=== PATIENT | female | born 1960 | race Two or more races ===

== ENCOUNTER 2020-09-02 12:04 | Outpatient (REF) | payer MEDICAID, SELFPAY ==
--- NOTE | ~2020-09-02 | MM_ITS ---
EXAMINATION: MM DIAGNOSTIC DIGITAL BREAST TOMOSYNTHESIS, RIGHT US DIAGNOSTIC ULTRASOUND BREAST, RIGHT CLINICAL INFORMATION: Right mastodynia lower inner breast. Palpable fullness on clinical exam. The lifetime risk of breast cancer based on the Tyrer-Cuzick Model is 4%. COMPARISON: Mammography: 04/02/2020, 03/30/2019, 03/15/2018 TECHNIQUE: Digital breast tomosynthesis is performed in both the craniocaudal and mediolateral oblique views along with computer-aided detection (CAD). Synthesized 2D images are generated from the tomosynthesis. Ultrasound right breast is targeted to the lower inner quadrant. Grayscale imaging and color Doppler are performed without and with harmonics. FINDINGS: There are scattered areas of fibroglandular density (ACR BI-RADS breast composition Category b). Parenchymal pattern is similar to prior exams. There is no developing density or interval mass or architectural abnormality. No skin thickening or coarsening of the Jere's ligaments. No duct ectasia. Ultrasound right breast demonstrates no cystic or solid mass, architectural abnormality, or focal duct ectasia. There is no skin thickening or edema tracking in the soft tissue planes. Preliminary results are discussed with the patient at time of visit. MM/MM tomosynthesis diagnostic RT IMPRESSION: 1. No mammographic evidence of malignancy or inflammatory changes. 2. Unremarkable right breast ultrasound. ASSESSMENT: BI-RADS 1: Negative RECOMMENDATION: 1. Patient should be managed based on the clinical impression. If there is still concern for clinically palpable abnormality, further evaluation may be considered with surgical consult. Decision to proceed with biopsy should be based on clinical grounds and degree of clinical concern. 2. Otherwise, routine annual screening mammography. This patient's information was entered into a reminder system with a target due date for their next mammogram.
== END 2020-09-02 12:05 | disposition home or self-care (01) ==
LOC: HO.MAMMO 12:04
PROVIDERS: Visit Provider Emergency Medicine
DX: N63.14 Unspecified lump in the right breast, lower inner quadrant (principal); N64.4 Mastodynia
CPT/HCPCS: 76642; 77061; 77065

== ENCOUNTER → 2020-10-08 13:01 | Outpatient (BNVA) | payer MEDICAID, SELFPAY | PROVIDERS: PCP Family Medicine; Visit Provider Nurse Practitioner Family | DX: M25.552 Pain in left hip (principal); M25.512 Pain in left shoulder; M25.562 Pain in left knee | CPT/HCPCS: 99202 ==

== ENCOUNTER 2020-10-10 14:35 | Outpatient (REF) | payer MEDICAID, SELFPAY ==
--- NOTE | ~2020-10-10 | XR_ITS ---
EXAMINATION: XR HIP, LEFT CLINICAL INFORMATION: Pain in left hip COMPARISON: Radiographs left hip 04/30/2012 TECHNIQUE: Two views of the left hip. FINDINGS: There is no fracture, dislocation, or destructive process. Bony mineralization is normal. No periarticular demineralization. No focal joint narrowing or erosive change or visible chondrocalcinosis. There is nonspecific corticated ossicle 0.8 x 1.1 cm triangular shape between the proximal left femoral neck and the inferior acetabulum of uncertain significance, possibly related to prior remote injury. Visualized left SI joint and the pubis are unremarkable. XR/XR hip LT min 2V IMPRESSION: 1. No hip joint narrowing or erosive change. 2. Corticated ossicle 8 x 11 mm between proximal femoral neck and inferior acetabulum of uncertain significance, possibly related to prior remote injury.
== END 2020-10-10 14:36 | disposition home or self-care (01) ==
LOC: HO.XRAY 14:35
PROVIDERS: PCP Family Medicine; Visit Provider Nurse Practitioner Family
DX: M25.552 Pain in left hip (principal)
CPT/HCPCS: 73502

== ENCOUNTER → 2020-10-25 08:51 | Outpatient (BNVA) | payer MEDICAID, SELFPAY | PROVIDERS: PCP Family Medicine; Visit Provider Nurse Practitioner Family ==

== ENCOUNTER 2020-11-12 08:04 | Outpatient (REF) | payer MEDICAID, SELFPAY ==
--- NOTE | ~2020-11-12 | CT_ITS ---
EXAMINATION: CT CHEST WITHOUT CONTRAST CLINICAL INFORMATION: Pulmonary nodule follow-up COMPARISON: Chest CT October 12, 2019 TECHNIQUE: Multidetector volumetric CT imaging of the chest was done. Axial MIP volume rendering provided. Sagittal and coronal reformatted images were obtained. This CT examination was performed using dose optimization techniques as appropriate, variously including the following: *Automated exposure control *Adjustment of mA and/or kV according to patient size (this includes techniques or standardized protocols for targeted exams where dose is matched to indication/reason for exam; i.e. extremities or head) *Use of iterative reconstruction technique DLP: 174 mGy-cm FINDINGS: The heart is normal in size. There is no pericardial effusion. A few normal-sized mediastinal lymph nodes are stable. Nonaneurysmal thoracic aorta. No axillary lymphadenopathy. Central airways are patent. Lungs are well aerated. There is no lobar consolidation. No pleural effusion or pneumothorax. Stable 8 mm right upper lobe pulmonary nodule. A few 1 to 2 mm pulmonary nodules within the left lower lobe are also stable. Visualized portion of the upper abdomen again demonstrate severely decreased hepatic echotexture. Moderate diffuse degenerative changes of the spine. CT/CT chest wo con IMPRESSION: Stable subcentimeter pulmonary nodules. No new suspicious pulmonary nodules visualized.
== END 2020-11-12 08:05 | disposition home or self-care (01) ==
LOC: HO.CT 08:04
PROVIDERS: PCP Family Medicine; Visit Provider Family Medicine
DX: R91.1 Solitary pulmonary nodule (principal)
CPT/HCPCS: 71250

== ENCOUNTER 2020-12-27 23:42 | Emergency (ER) | payer MEDICAID, SELFPAY ==
--- NOTE | ~2020-12-27 | CT_ITS ---
EXAMINATION: CONTRAST-ENHANCED CT OF THE CHEST; CONTRAST-ENHANCED CT OF THE ABDOMEN AND PELVIS INDICATION: Trauma COMPARISON: 11/12/2020 TECHNIQUE: 85 mL Omnipaque 350 IV contrast was utilized. Multidetector helical imaging was performed through the chest, abdomen, and pelvis. Coronal and sagittal reformatted images were created at the technologist workstation. DLP: 91 mGy-cm DOSE LOWERING TECHNIQUES: This CT examination was performed using dose optimization techniques as appropriate, variously including the following: - Automated exposure control - Adjustment of mA and/or kV according to patient size (this includes techniques or standardized protocols for targeted exams were dose is matched to indication/reason for exam; i.e. extremities or head) - Use of iterative reconstruction technique FINDINGS: Chest: There is limited detailed evaluation of the lung parenchyma due to respiratory motion artifact. Subsegmental atelectasis is noted towards the lung bases, without additional consolidation. A peripheral right upper lobe nodule measuring up to 7 mm without significant change from prior. No pneumothorax or pleural effusion. Subcentimeter left thyroid lobe nodule noted. There are subcentimeter mediastinal lymph nodes within the range of normal variation. Cardiac size is within normal limits; no pericardial effusion. There are scattered calcifications along the aorta. No axillary lymphadenopathy is present. Abdomen/Pelvis: The liver demonstrates hypoattenuation suspicious for steatosis. No intrahepatic biliary ductal dilatation. The gallbladder is unremarkable. The spleen, pancreas, and adrenal glands are within normal limits. Bilateral nephrograms are symmetric. No hydronephrosis. No obstructing renal or ureteral calculi are present. Subcentimeter hypodensity in the lower left kidney subjectively has the appearance of fat, suspicious for a small angiomyolipoma. The urinary bladder is distended and otherwise unremarkable. The prostate and seminal vesicles are unremarkable. Colonic diverticulosis is noted. The small and large bowel are otherwise unremarkable without evidence of obstruction or pericolonic inflammatory change. The appendix is unremarkable. No free fluid or free air is identified. Scattered atherosclerotic calcifications are present. No retroperitoneal or pelvic lymphadenopathy is seen. Degenerative changes are noted in the spine. CT/CT abdomen pelvis w con IMPRESSION: 1. No acute findings identified in the chest/abdomen/pelvis. 2. Redemonstrated peripheral subcentimeter right upper lobe lung nodule. 3. Hepatic steatosis. 4. Colonic diverticulosis.
[2020-12-28 00:56] VITALS: BP 128/65; PULSE 86; RESP 16; TEMP 36.7; O2SAT 97; BMI 49.1
--- NOTE | 2020-12-28 02:18 | ED_ITS ---
HPI - Fall General Chief Complaint: Fall Stated Complaint: abdominal pain Time Seen by Provider: 12/28/20 02:15 History of Present Illness HPI Narrative: Patient is a 60-year-old female status post accidental fall. Hit the left lower rib left upper abdomen area. There is no loss of consciousness. Complaining of excruciating pain. Patient has a history of fibromyalgia. Has extreme pain that is worse with movement. Patient denies any nausea vomiting. Feels generalized malaise. Patient from home. No allergies to the pain medications. ndition Related Data Home Medications Medication Instructions Recorded Confirmed acetaminophen 325 mg capsule 650 mg PO Q6H PRN 10/08/20 10/08/20 Previous Rx's Medication Instructions Recorded ibuprofen 800 mg tablet 800 mg PO BID PRN #60 tab 10/15/20 Allergies Allergy/AdvReac Type Severity Reaction Status Date / Time No Known Allergies Allergy Verified 10/25/20 08:52 [No Known Allergies*] Review of Systems Review of Systems: Constitutional: No Weight loss, No Fever, No Chills, No Night Sweats, No Fatigue, No Malaise ENT/Mouth: No Hearing loss, No Ear Pain, No Nasal Congestion, No Sinus Pain, No Hoarseness, No sore throat, No Rhinorrhea, No Swallowing Difficulty Eyes: No Eye Pain, No Swelling, No Redness, No Foreign Body, No Discharge, No Vision Changes Cardiovascular: No Chest Pain, No SOB, No Dyspnea on Exertion, No Orthopnea, No Edema, No Palpitations Respiratory: No Cough, No Sputum, No Wheezing, No Smoke Exposure, No Dyspnea Gastrointestinal: No Nausea, No Vomiting, No Diarrhea, No Constipation, No abdominal Pain, No Hematochezia, No Melena Genitourinary: no irregular bleeding, No Dysuria, No Urinary Frequency, No Hematuria, No Urinary Incontinence, No Urgency, No Flank Pain, No Urinary Flow Changes, No Hesitancy Musculoskeletal: No joint pain, No Myalgias, No Joint Swelling Skin: No Skin Lesions, No rash Neuro: No Weakness, No Numbness, No Paresthesias, No Loss of Consciousness, No Dizziness, No Headache Psych: No Anxiety/Panic, No Depression, No SI/HI/AH/VH, No Social Issues, Heme/Lymph: No Bruising, No Bleeding,No Lymphadenopathy Endocrine: No Polyuria, No Polydipsia, No Temperature Intolerance [facility] Past Medical History Attestation statement: The following information was validated with the patient. Medical History Diabetes Fibromyalgia HTN (hypertension) Hyperlipemia Osteoporosis Social History Social History Advance Directives: No Patient : No Physical Exam Vital Signs: Vital Signs: Last Vital Signs Temp 98.0 F 12/28/20 00:56 Pulse 86 12/28/20 00:56 Resp 16 12/28/20 03:59 BP 128/65 12/28/20 00:56 Pulse Ox 97 12/28/20 00:56 Body Mass Index 49.1 Appearance: Alert. Oriented X3. No acute distress. Eyes: Pupils equal, round and reactive to light. ENT: Pharynx normal. Neck: Normal inspection. Neck supple. No lymph nodes noted. No crepitus CVS: Normal heart rate and rhythm. Pulses normal. Normal S1 and S2 Respiratory: No respiratory distress. Breath sounds normal. No Wheezing. No rales Abdomen: No crepitus elicited. There is mild tenderness on palpation of the left upper quadrant and left lower rib area.. No rigidity. No distention. good BS x4 Skin: Skin warm and dry. Normal skin color. Normal skin turgor. Extremities: No lower extremity edema. Neurovascular intact to all extremities. No Lacerations. No Rash Neuro: Oriented X 3. No motor deficit. No sensory deficit. Moving all extermities. No slurred speech MDM - Fall MDM Narrative Medical decision making narrative: CT scan of the chest, abdomen pelvis were all negative. No evidence of obstruction no evidence of perforation no evidence of bleeding no evidence of fracture no evidence of pneumothorax. Will discharge patient home. There is a pulmonary and nodule noted. Patient was told to follow up on an outpatient basis. In stable co Lab Data Result diagrams: 12/28/20 02:36 12/28/20 02:36 Labs: Lab Results 12/28/20 12/28/20 12/28/20 Range/Units 02:36 02:36 02:36 WBC 8.5 (4.8-10.8) X10*3/uL RBC 3.90 L (4.20-5.50) X10*6/uL Hgb 11.1 L (12.0-16.0) g/dl Hct 35.2 L (37-47) % MCV 90.3 (80-98) fL MCH 28.5 (27.0-33.0) pg MCHC 31.5 (31.0-35.0) g/dl RDW 13.2 (11.0-16.0) % Plt Count 290 (160-400) X10*3/uL MPV 10.8 (9.4-12.3) fL Immature Gran % (Auto) 0.2 (0.0-0.4) % Neut % (Auto) 56.7 (45-73) % Lymph % (Auto) 32.5 (20-40) % Early % (Auto) 8.6 (2-11) % Eos % (Auto) 1.6 (0-4) % Baso % (Auto) 0.4 (0-2) % Lymph # (Auto) 2.8 (1.2-4.9) X10*3/uL Early # (Auto) 0.7 (0.1-1.2) X10*3/uL Eos # (Auto) 0.1 (0.0-0.4) X10*3/uL Baso # (Auto) 0.0 (0.0-0.2) X10*3/uL Abs Immat Gran (auto) 0.02 (0.00-0.03) X10*3/uL Absolute Neuts (auto) 4.8 (2.0-8.3) X10*3/uL Absolute Nucleated RBC 0.000 (0.0-0.012) X10*3/uL Nucleated RBC % (auto) 0.0 (0.0-0.2) /100WBC Sodium 142 (135-145) mmol/L Potassium 3.8 (3.3-5.1) mmol/L Chloride 101 (96-108) mmol/L Carbon Dioxide 30 H (22-29) mmol/L Anion Gap 15 (12-20) BUN 9 (9-16) mg/dL Creatinine 0.81 (0.5-1.4) mg/dL Estim Creat Clear Calc 94.1 Estimated GFR > 60 Random Glucose 184 H (60-115) mg/dL Calcium 8.9 (8.4-10.2) mg/dL Total Bilirubin 0.2 (0.0-1.0) mg/dL Direct Bilirubin < 0.2 (0.0-0.5) mg/dL AST 23 (5-31) U/L ALT 26 (0-31) U/L Alkaline Phosphatase 88 (39-117) U/L Total Protein 6.6 (6.5-8.0) g/dL Albumin 4.2 (3.5-5.0) g/dL Discharge Plan Discharge Clinical Impression: Chest wall pain Patient Disposition: Home, Self-Care Instructions: Chest Wall Pain (ED) Additional Instructions: A lung nodule was found on your CT scan. You must follow up on an outpatient basis. Prescriptions: No Action ibuprofen 800 mg tablet 800 mg PO BID PRN (Reason: pain) Qty: 60 RF: 0 acetaminophen [Tylenol] 325 mg capsule 650 mg PO Q6H PRNRF: 0 Print Language: [place]raltarian
[2020-12-28 02:44] LABS: MANUAL DIFF FLAG NO
[2020-12-28 02:49] LABS: Basophils Percent Auto 0.4 % (0-2); Eosinophils Absolute Auto 0.1 X10*3/uL (0.0-0.4); Eosinophils Percent Auto 1.6 % (0-4); Hematocrit 35.2 % (37-47); Hemoglobin 11.1 g/dl (12.0-16.0); Imm Gran Abs Auto 0.02 X10*3/uL (0.00-0.03); Imm Gran Pct Auto 0.2 % (0.0-0.4); Lymphocytes Absolute Auto 2.8 X10*3/uL (1.2-4.9); Lymphocytes Percent Auto 32.5 % (20-40); Mean Corpuscular HGB Conc 31.5 g/dl (31.0-35.0); Mean Corpuscular Hemoglobin 28.5 pg (27.0-33.0); Mean Corpuscular Volume 90.3 fL (80-98); Mean Platelet Volume 10.8 fL (9.4-12.3); Monocytes Absolute Auto 0.7 X10*3/uL (0.1-1.2); Monocytes Percent Auto 8.6 % (2-11); Neutrophils Absolute Auto 4.8 X10*3/uL (2.0-8.3); Neutrophils Percent Auto 56.7 % (45-73); Platelet Count 290 X10*3/uL (160-400); Red Cell Distribution Width 13.2 % (11.0-16.0); White Blood Count 8.5 X10*3/uL (4.8-10.8)
[2020-12-28 03:16] LABS: Anion Gap 15 (12-20); Blood Urea Nitrogen 9 mg/dL (9-16); Calcium 8.9 mg/dL (8.4-10.2); Carbon Dioxide 30 mmol/L (22-29); Chloride 101 mmol/L (96-108); Creatinine Clr Calc Pharmacy 94.1; Estimated Glomerular Filt Rate > 60; Glucose Random 184 mg/dL (60-115); Potassium 3.8 mmol/L (3.3-5.1); Sodium 142 mmol/L (135-145)
[2020-12-28 03:17] LABS: Alanine Aminotransferase 26 U/L (0-31); Albumin Level 4.2 g/dL (3.5-5.0); Alkaline Phosphatase 88 U/L (39-117); Aspartate Amino Transferase 23 U/L (5-31); Bilirubin Direct < 0.2 mg/dL (0.0-0.5); Bilirubin Total 0.2 mg/dL (0.0-1.0); Total Protein 6.6 g/dL (6.5-8.0)
[2020-12-28] MEDS: iohexoL 350 MG/ML 100 ML INFUS..BTL 85 ML IV (03:38)
[2020-12-28 03:59] VITALS: RESP 16
[2020-12-28] MEDS: HYDROmorphone HCl 0.5 MG/0.5 ML SYRINGE SUBCUT (03:59)
[2020-12-28 09:59] LABS: Estimated Average Glucose 157 mg/dL; Hemoglobin A1c % 7.1 %
== END 2020-12-28 05:03 | disposition home or self-care (01) ==
PROVIDERS: Emergency Provider Emergency Medicine Emergency Medical Services; PCP Family Medicine
DX: R07.89 Other chest pain (principal); R91.1 Solitary pulmonary nodule; I10 Essential (primary) hypertension; E11.9 Type 2 diabetes mellitus without complications; M79.7 Fibromyalgia; Z91.81 History of falling
CPT/HCPCS: 36415; 71260; 74177; 80048; 80076; 83036; 85025; 96372; 96374; 99283; 99284; J1170; Q9967

== ENCOUNTER → 2021-02-20 09:52 | Outpatient (BNVA) | payer MEDICAID, SELFPAY | PROVIDERS: PCP Family Medicine; Referring Provider Family Medicine; Visit Provider Surgery | DX: Z86.010 Personal history of colon polyps (principal) | CPT/HCPCS: 99212 ==

== ENCOUNTER 2021-04-21 09:40 | Outpatient (REF) | payer MEDICAID, SELFPAY ==
--- NOTE | ~2021-04-21 | XR_ITS ---
EXAMINATION: XR HAND, LEFT CLINICAL INFORMATION: Left hand pain. COMPARISON: None. TECHNIQUE: PA, lateral, and oblique views of the left hand. FINDINGS: No acute fracture or dislocation. Joint space narrowing with marginal osteophytes at the 1st metacarpophalangeal joint. More mild joint space narrowing with tiny marginal osteophytes throughout the interphalangeal joints. No osseous erosion. No abnormal soft tissue calcification. Linear metallic density measuring 0.2 cm adjacent to the 2nd proximal phalanx. XR/XR hand LT min 3V IMPRESSION: Moderate 1st carpometacarpal joint osteoarthritis. More mild osteophyte arthritis scattered throughout the interphalangeal joints.
== END 2021-04-21 09:41 | disposition home or self-care (01) ==
LOC: HO.HOSX 09:40
PROVIDERS: Visit Provider Physician Assistant
DX: S62.502A Fracture of unspecified phalanx of left thumb, initial encounter for closed fracture (principal); M19.042 Primary osteoarthritis, left hand
CPT/HCPCS: 73130; 99212

== ENCOUNTER 2021-06-18 09:45 | Outpatient (REF) | payer MEDICAID, SELFPAY ==
--- NOTE | 2021-06-18 09:51 | EMG_ITS ---
This is a 61-year-old woman with a lifelong history of bilateral upper extremity numbness and tingling in the hands, left slightly worse than the right. PHYSICAL EXAMINATION: On examination, she is alert and oriented with normal intellectual functions. Cranial nerves II through XII are normal. Muscle tone and strength are normal in all 4 extremities. Deep tendon reflexes symmetrical. Plantar responses are flexor. IMPRESSION: Rule out carpal tunnel syndrome. Nerve conduction EMG study: Mild carpal tunnel syndrome bilaterally, slightly worse on the left. Normal EMG of the left C5-T1 innervated muscles. MD MESSI De La Rosa/SYLVIE / [phone]
== END 2021-06-18 09:46 | disposition home or self-care (01) ==
LOC: HO.NEURO 09:45
PROVIDERS: PCP Family Medicine; Visit Provider Family Medicine
DX: G56.03 Carpal tunnel syndrome, bilateral upper limbs (principal); M25.532 Pain in left wrist
CPT/HCPCS: 95885; 95913

== ENCOUNTER 2021-07-01 12:51 | Outpatient (REF) | payer MEDICAID, SELFPAY ==
--- NOTE | ~2021-07-01 | CT_ITS ---
EXAMINATION: CT CHEST WITHOUT CONTRAST CLINICAL INFORMATION: Follow-up pulmonary nodule COMPARISON: Previous chest CT and, most recent December 2020 TECHNIQUE: Multidetector volumetric CT imaging of the chest was done. Axial MIP volume rendering provided. Sagittal and coronal reformatted images were obtained. This CT examination was performed using dose optimization techniques as appropriate, variously including the following: *Automated exposure control *Adjustment of mA and/or kV according to patient size (this includes techniques or standardized protocols for targeted exams where dose is matched to indication/reason for exam; i.e. extremities or head) *Use of iterative reconstruction technique DLP: 207 mGy-cm FINDINGS: LUNGS: Evaluation of the lungs is limited due to respiratory motion artifact. There is a 7 mm peripheral or subpleural right upper lobe nodule axial image 136 series 6 that is stable. There is a 5 mm right middle lobe nodule axial image 253 series 6. This may be related to bronchial soft tissue opacification. There is a 3 mm left lower lobe peripheral nodule axial image 250 series 6. There is a 3 mm medial left lower lobe nodule axial image 324 series 6. The smaller pulmonary nodules are not seen on a prior exams. MEDIASTINUM: There are small mediastinal lymph nodes. The mediastinum is otherwise normal. PLEURA: There is no pleural effusion. No pleural mass or thickening. AXILLA: No lymphadenopathy. UPPER ABDOMEN: The liver appears enlarged and low in attenuation. OSSEOUS STRUCTURES: There are degenerative changes of the spine. CT/CT chest wo con IMPRESSION: Limited exam due to respiratory motion artifact. Stable 7 mm right upper lobe nodule. There are additional smaller nodules are difficult to compare with prior exams due to motion artifact. Fleischner guidelines were followed.
== END 2021-07-01 12:52 | disposition home or self-care (01) ==
LOC: HO.CT 12:51
PROVIDERS: PCP Family Medicine; Visit Provider Family Medicine
DX: R91.1 Solitary pulmonary nodule (principal)
CPT/HCPCS: 71250

== ENCOUNTER → 2021-08-06 14:01 | Outpatient (BNVA) | payer MEDICAID, SELFPAY | PROVIDERS: PCP Family Medicine; Visit Provider Orthopaedic Surgery ==

== ENCOUNTER 2021-10-06 08:37 | Outpatient (REF) | payer MEDICAID, SELFPAY ==
--- NOTE | ~2021-10-06 | XR_ITS ---
EXAMINATION: LEFT KNEE AND LEFT HIP. CLINICAL INFORMATION: Left hip and left knee pain. COMPARISON: None TECHNIQUE: Left hip 2 views. Left knee 4 views FINDINGS: Left knee: There is mild reduction in the medial compartment joint space. The lateral and patello- femoral compartment joint space is maintained. No loose bodies, bony erosive changes, acute fracture or dislocation seen. There is anterior superior and anterior inferior patellar enthesophytes no visible acute fracture or dislocation seen. Nonspecific mild prepatellar soft tissue swelling is seen. Left hip: There is no visible acute fracture, dislocation or subluxation seen. The soft tissues are normal.. XR/XR hip LT min 2V IMPRESSION: Superficial prepatellar soft tissue swelling and superior inferior anterior patellar enthesophytes. Mild DJD medial compartment. Unremarkable left hip exam.
--- NOTE | ~2021-10-06 | XR_ITS ---
EXAMINATION: LEFT KNEE AND LEFT HIP. CLINICAL INFORMATION: Left hip and left knee pain. COMPARISON: None TECHNIQUE: Left hip 2 views. Left knee 4 views FINDINGS: Left knee: There is mild reduction in the medial compartment joint space. The lateral and patello- femoral compartment joint space is maintained. No loose bodies, bony erosive changes, acute fracture or dislocation seen. There is anterior superior and anterior inferior patellar enthesophytes no visible acute fracture or dislocation seen. Nonspecific mild prepatellar soft tissue swelling is seen. Left hip: There is no visible acute fracture, dislocation or subluxation seen. The soft tissues are normal.. XR/XR knee LT 4V IMPRESSION: Superficial prepatellar soft tissue swelling and superior inferior anterior patellar enthesophytes. Mild DJD medial compartment. Unremarkable left hip exam.
== END 2021-10-06 08:38 | disposition home or self-care (01) ==
LOC: HO.XRAY 08:37
PROVIDERS: PCP Family Medicine; Visit Provider Family Medicine
DX: M25.552 Pain in left hip (principal); M25.562 Pain in left knee
CPT/HCPCS: 73502; 73564

== ENCOUNTER 2021-10-06 13:17 | Emergency (ER) | payer MEDICAID, SELFPAY | END 2021-10-06 18:56 | disposition left against medical advice (07) | PROVIDERS: Emergency Provider Emergency Medicine; PCP Family Medicine | DX: M25.552 Pain in left hip (principal); M79.605 Pain in left leg ==

== ENCOUNTER 2021-10-07 19:33 | Emergency (ER) | payer MEDICAID, SELFPAY ==
--- NOTE | 2021-10-07 20:38 | PC.NURSE ---
patient called to triage x 3, no answer.
== END 2021-10-07 20:40 | disposition left against medical advice (07) ==
PROVIDERS: Emergency Provider Emergency Medicine; PCP Family Medicine
DX: M79.606 Pain in leg, unspecified (principal)

== ENCOUNTER 2021-10-08 21:09 | Emergency (ER) | payer MEDICAID, SELFPAY ==
[2021-10-08 21:24] VITALS: BP 164/77; PULSE 88; RESP 20; TEMP 36.3; O2SAT 99; BMI 30.9
[2021-10-08] MEDS: Ketorolac Tromethamine 15 MG/ML VIAL IM (23:01)
[2021-10-08] MEDS: Cyclobenzaprine HCl 10 MG TABLET PO (23:01)
[2021-10-08] MEDS: Lidocaine 4 % Patch ADH..PATCH 1 PATCH TRANSDERMA (23:02)
--- NOTE | 2021-10-08 23:29 | ED_ITS ---
HPI - General Adult General Chief complaint: General Medical Stated complaint: LEFT HIP PAIN Time Seen by Provider: 10/08/21 22:44 Source: patient Mode of arrival: ambulatory History of Present Illness HPI narrative: 61-year-old female with a past medical history of asthma, diabetes, fibromyalgia, HTN, HLD, osteoporosis, presenting to the ED complaining of acute on chronic left hip/buttock pain radiating down left lower extremity. Reports used to take ibuprofen with mild relief. Denies known injury/trauma or fall, numbness, tingling, weakness, urinary incontinence/retention Onset (ago): day(s) Related Data Home Medications Medication Instructions Recorded Confirmed acetaminophen 325 mg capsule 650 mg PO Q6H PRN 10/08/20 03/20/21 (Tylenol) albuterol sulfate 1 amp INHALATION QID PRN 03/20/21 03/20/21 albuterol sulfate 90 mcg/actuation 2 puff PO Q4-6H PRN 03/20/21 03/20/21 aerosol inhaler (ProAir HFA) aspirin 81 mg tablet,delayed 1 tab PO QAM 03/20/21 03/20/21 release cholecalciferol (vitamin D3) 25 1 tab PO QAM 03/20/21 03/20/21 mcg (1,000 unit) tablet clonazepam 1 mg tablet 1 - 2 tab PO DAILY PRN 03/20/21 03/20/21 fenofibrate micronized 200 mg 1 cap PO QPM 03/20/21 03/20/21 capsule fluoxetine 40 mg capsule 1 cap PO QAM 03/20/21 03/20/21 fluticasone propionate 110 2 puff INHALATION BID 03/20/21 03/20/21 mcg/actuation HFA aerosol inhaler (Flovent HFA) hydrochlorothiazide 25 mg tablet 1 tab PO QAM 03/20/21 03/20/21 lisinopril 2.5 mg tablet 1 tab PO QPM 03/20/21 03/20/21 loratadine 10 mg tablet 1 tab PO DAILY 03/20/21 03/20/21 metformin 500 mg tablet,extended 2 tab PO BID 03/20/21 03/20/21 release 24 hr multivitamin 1 tab PO QAM 03/20/21 03/20/21 omeprazole 20 mg capsule,delayed 1 cap PO QAM 03/20/21 03/20/21 release pregabalin 100 mg capsule 1 cap PO BID 03/20/21 03/20/21 quetiapine 100 mg tablet 1 tab PO BEDTIME 03/20/21 03/20/21 simvastatin 40 mg tablet 1 tab PO BEDTIME 03/20/21 03/20/21 zolpidem 10 mg tablet 0.5 - 1 tab PO BEDTIME PRN 03/20/21 03/20/21 Previous Rx's Medication Instructions Recorded ibuprofen 800 mg tablet 800 mg PO BID PRN #60 tab 10/15/20 sodium,potassium,mag sulfates 17.5 See Rx Instructions PO .COMPLEX 02/20/21 gram-3.13 gram-1.6 gram oral soln #354 ml (Suprep Bowel Prep Kit) docusate sodium 100 mg capsule 100 mg PO BID #60 cap 05/05/21 acetaminophen 500 mg tablet 500 mg PO Q6H PRN #20 tab 10/08/21 (Tylenol Extra Strength) cyclobenzaprine 5 mg tablet 5 mg PO Q8H PRN 5 Days #14 tab 10/08/21 lidocaine 5 % topical patch 1 patch TOPICAL DAILY PRN #30 ea 10/08/21 (Lidoderm) MDD remove after 12 hours Allergies Allergy/AdvReac Type Severity Reaction Status Date / Time No Known Allergies Allergy Verified 04/21/21 09:51 [No Known Allergies*] Review of Systems Review of Systems: Constitutional: No Fever, No Chills ENT/Mouth: No Ear Pain, No Nasal Congestion, No Sinus Pain, No Hoarseness, No sore throat, No Rhinorrhea, No Swallowing Difficulty Cardiovascular: No Chest Pain, No SOB Respiratory: No Cough, No Sputum, No Wheezing Gastrointestinal: No Nausea, No Vomiting, No Diarrhea, No Constipation, No Abdominal pain Genitourinary: No Dysuria, No Urinary Frequency, No Hematuria, No Urinary Incontinence/retention, No Urgency, No Flank Pain Musculoskeletal: + joint pain, No Myalgias, No Joint Swelling Skin: No Skin Lesions, No rash Neuro: No Weakness, No Numbness, No Paresthesias Yes all other systems are reviewed and are negative Neurologic: Denies Sensory deficit (Neuro) [facility] Past Medical History Attestation statement: The following information was validated with the patient. Medical History Asthma Diabetes Fibromyalgia History of adenomatous polyp of colon HTN (hypertension) Hyperlipemia Osteoporosis Surgical History H/O colonoscopy History of carpal tunnel release Social History Social History Patient Tobacco Use Status: Tobacco use Unknown Advance Directives: No Advance Directives Information Provided: No Physical Exam ED Vital Signs: Vital Signs - 24 hr 10/08/21 21:24 Temperature 97.4 F Pulse Rate 88 Respiratory Rate 20 Blood Pressure 164/77 H Pulse Oximetry 99 BMI result Body Mass Index 30.9 Const General: cooperative, healthy appearing, comfortable and no acute distress Orientation/consciousness: patient oriented x3 Limitations: no limitations HENMT Head: Yes normal to inspection and Yes atraumatic Ears: hearing grossly normal bilaterally General nose exam: Normal external nose present Face and sinus: Yes normal facial exam Eyes General: appearance normal, both eyes and all related structures EOM: EOMs intact bilaterally Neck Neck: Yes normal visual inspection and Yes no meningeal signs Resp Effort & Inspection: normal respiratory effort and no respiratory distress Cardio Rate: regular rate Peripheral pulses: dorsalis pedis present GI Inspection: Yes normal to inspection Palpation (GI): Soft to palpation, nontender, no guarding and not rigid General: Yes no CVA tenderness Back/Spine/Pelvis Other: No midline thoracic/lumbar spinous tenderness/step-off or deformity. +left buttock and thigh tenderness to palpation. No appreciable deformity/erythema/ecchymosis or crepitus. Compartments soft. Pain with L hip/LLE movement. Strength intact. Neurovascular intact distally. No saddle anesthesia Left hip and knee nontender Back: no CVA tenderness Skin Rashes: no rashes Wounds: no wounds Neuro General: patient oriented x3, gait normal, tone normal, moves all extremities, no meningeal signs and no focal motor deficits Gait exam (Neuro): Normal gait present Sensory Exam: No Sensory deficit (Neuro) Extrem General: Yes normal to inspection Medical Decision Making MDM Narrative Medical decision making narrative: 61-year-old female with a past medical history of asthma, diabetes, fibromyalgia, HTN, HLD, osteoporosis, presenting to the ED complaining of acute on chronic left hip/buttock pain radiating down left lower extremity. On exam vital signs stable, NAD/nontoxic comfortable exam as above. No midline spinous tenderness, no red flag symptoms, no saddle anesthesia. Ambulating with steady gait. Of note patient had outpatient x-rays on 10/06/2021 of left hip and knee show a superficial prepatellar soft tissue swelling/degenerative changes, hip unremarkable Symptoms likely from sciatica/MSK pain/strain vs arthritis. Unlikely cauda equina/cord compression Medical Records Medical records reviewed: Yes I reviewed the patient's medical records. Lab Data Lab results reviewed: Yes I reviewed the patient's lab results. Discharge Plan Discharge Clinical Impression: Sciatic leg pain Patient Disposition: Home, Self-Care Instructions: Sciatica (ED) Additional Instructions: Follow-up with your doctor. Her pain is likely from sciatica Flexeril is a muscle relaxer, take at night as it makes you drowsy, do not d rive, drink alcohol, or operate machinery while taking it Lidoderm patches are numbing patches, apply to painful area In addition take Tylenol at home If symptoms persist or worsen, pain becomes unbearable, you developed urinary retention or incontinence, or weakness return to the ED Seguimiento con herndon m?dico. Es probable que herndon dolor se deba a la ci?cooper. Flexeril es un relajante muscular, t?ankit por la noche ya que te adormece, no conduzcas, bebas alcohol ni operes maquinaria mientras lo aquiles. Los parches de Lidoderm son parches anest?sicos, se aplican en el ?gabriel dolorida Adem?s torrey Tylenol en casa Si los s?ntomas persisten o empeoran, el dolor se vuelve insoportable, desarroll? retenci?n urinaria o incontinencia, o debilidad, regrese al servicio de urgencias. Prescriptions: New acetaminophen [Tylenol Extra Strength] 500 mg tablet 500 mg PO Q6H PRN (Reason: pain or fever) Qty: 20 0RF lidocaine [Lidoderm] 5 % adhesive patch,medicated 1 patch topical DAILY MDD remove after 12 hours PRN (Reason: pain) Qty: 30 0RF Rx Instructions: leave on most painful area for up to 12 hrs cyclobenzaprine 5 mg tablet 5 mg PO Q8H PRN (Reason: pain (scale score 7-10)) 5 Days Qty: 14 0RF No Action ibuprofen 800 mg tablet 800 mg PO BID PRN (Reason: pain) Qty: 60 0RF Rx Instructions: only use as needed docusate sodium 100 mg capsule 100 mg PO BID Qty: 60 3RF multivitamin Tablet 1 tab PO QAM 0RF fluoxetine 40 mg capsule 1 cap PO QAM 0RF albuterol sulfate 2.5 mg /3 mL (0.083 %) solution for nebulization 1 amp inhalation QID PRN (Reason: dyspnea) 0RF clonazepam 1 mg tablet 1 - 2 tab PO DAILY PRN (Reason: anxiety) 0RF fenofibrate micronized 200 mg capsule 1 cap PO QPM 0RF aspirin 81 mg tablet,delayed release (DR/EC) 1 tab PO QAM 0RF quetiapine 100 mg tablet 1 tab PO BEDTIME 0RF simvastatin 40 mg tablet 1 tab PO BEDTIME 0RF omeprazole 20 mg capsule,delayed release(DR/EC) 1 cap PO QAM 0RF hydrochlorothiazide 25 mg tablet 1 tab PO QAM 0RF zolpidem 10 mg tablet 0.5 - 1 tab PO BEDTIME PRN (Reason: insomnia) 0RF albuterol sulfate [ProAir HFA] 90 mcg/actuation HFA aerosol inhaler 2 puff PO Q4-6H PRN (Reason: dyspnea) 0RF metformin 500 mg tablet extended release 24 hr 2 tab PO BID 0RF lisinopril 2.5 mg tablet 1 tab PO QPM 0RF loratadine 10 mg tablet 1 tab PO DAILY 0RF Flovent HFA 110 mcg/actuation HFA aerosol inhaler 2 puff inhalation BID 0RF pregabalin 100 mg capsule 1 cap PO BID 0RF cholecalciferol (vitamin D3) 25 mcg (1,000 unit) tablet 1 tab PO QAM 0RF acetaminophen [Tylenol] 325 mg capsule 650 mg PO Q6H PRN (Reason: Pain) 0RF Suprep Bowel Prep Kit 17.5-3.13-1.6 gram recon soln See Rx Instructions PO .COMPLEX Qty: 354 0RF Rx Instructions: DILUTE; drink full amount early evening before AND next morning at least 2 hr before procedure; follow w 32 oz. water PO Referrals: Kiara Resendez MD [Primary Care Provider] - 2 days Print Language: Japanese
== END 2021-10-09 00:36 | disposition home or self-care (01) ==
PROVIDERS: Emergency Provider Internal Medicine; PCP Family Medicine
DX: M54.41 Lumbago with sciatica, right side (principal); M25.552 Pain in left hip; Z79.899 Other long term (current) drug therapy
CPT/HCPCS: 96372; 99284; J1885

== ENCOUNTER 2021-10-10 15:13 | Outpatient (REF) | payer MEDICAID, SELFPAY ==
--- NOTE | ~2021-10-10 | MM_ITS ---
EXAMINATION: MM SCREENING DIGITAL BREAST TOMOSYNTHESIS, BILATERAL CLINICAL INFORMATION: Screening. Asymptomatic. The lifetime risk of breast cancer based on the Tyrer-Cuzick Model is 10%. COMPARISON: Mammography: 09/02/2020, 04/02/2020, 03/30/2019 TECHNIQUE: Digital breast tomosynthesis is performed in both the craniocaudal and mediolateral oblique views along with computer-aided detection (CAD). Synthesized 2D images are generated from the tomosynthesis. FINDINGS: There are scattered areas of fibroglandular density (ACR BI-RADS breast composition Category b). There are no significant masses, abnormal calcifications, or other abnormalities. Parenchymal pattern is similar to prior studies. There is no developing density or architectural abnormality. The axilla and skin contours are unremarkable. No significant changes. MM/MM tomosynthesis screening BI IMPRESSION: No mammographic evidence of malignancy. ASSESSMENT: BI-RADS 1: Negative RECOMMENDATION: Routine annual mammography screening. This patient's information was entered into a reminder system with a target due date for their next mammogram.
== END 2021-10-10 15:14 | disposition home or self-care (01) ==
LOC: HO.MAMMO 15:13
PROVIDERS: Visit Provider Family Medicine
DX: Z12.31 Encounter for screening mammogram for malignant neoplasm of breast (principal)
CPT/HCPCS: 77063; 77067

== ENCOUNTER 2021-10-22 07:51 | Outpatient (REF) | payer MEDICAID, SELFPAY ==
--- NOTE | ~2021-10-22 | XR_ITS ---
EXAMINATION: XR PELVIS CLINICAL INFORMATION: Pain COMPARISON: 10/06/2021 TECHNIQUE: AP view of the pelvis. FINDINGS: No fractures. Pelvic ring intact. Femoral heads are spherical. Mild left hip joint space narrowing. Bilateral acetabular and femoral collar marginal osteophytes. Mild bilateral sacroiliac arthrosis. Soft tissues unremarkable. XR/XR pelvis 1-2V IMPRESSION: No acute findings. Moderate bilateral hip arthrosis, worse on the left.
== END 2021-10-22 07:52 | disposition home or self-care (01) ==
LOC: HO.HOSX 07:51
PROVIDERS: Visit Provider Physician Assistant
DX: M54.31 Sciatica, right side (principal)
CPT/HCPCS: 72170; 99212

== ENCOUNTER → 2021-11-17 14:55 | Outpatient (BNVA) | payer MEDICAID, SELFPAY | PROVIDERS: PCP Family Medicine; Visit Provider Nurse Practitioner Family | DX: M79.7 Fibromyalgia (principal); M54.16 Radiculopathy, lumbar region; M62.830 Muscle spasm of back; M53.3 Sacrococcygeal disorders, not elsewhere classified; M25.552 Pain in left hip; M47.816 Spondylosis without myelopathy or radiculopathy, lumbar region | CPT/HCPCS: 99212 ==

== ENCOUNTER → 2021-12-08 09:13 | Outpatient (BNVA) | payer MEDICAID, SELFPAY | PROVIDERS: PCP Family Medicine; Visit Provider Nurse Practitioner Family | DX: Z13.89 Encounter for screening for other disorder (principal) ==

== ENCOUNTER 2021-12-10 11:04 | Outpatient (REF) | payer MEDICAID, SELFPAY ==
--- NOTE | ~2021-12-10 | MR_ITS ---
EXAMINATION: MR LUMBAR SPINE WITHOUT CONTRAST CLINICAL INFORMATION: Lumbar radiculopathy. COMPARISON: CT scan of the abdomen and pelvis 12/28/2020. TECHNIQUE: MRI of the lumbar spine was obtained using routine sequences without contrast. FINDINGS: Alignment is normal. Vertebral heights are preserved. There are type II degenerative endplate changes at L1-L2. There is loss of intervertebral disc height and T2 signal intensity at L1-L2 related to disc degeneration. Disc desiccation is visualized at multiple additional levels without substantial loss of intervertebral disc height. The tip of the conus medullaris is located at L1-L2. Visualized distal cord signal intensity is normal. At L1-L2 there is a right subarticular protrusion superimposed upon a bulging disc. Bilateral facet degenerative change. Moderate canal stenosis. Subarticular zone narrowing causes abutment and possible compression of both traversing L2 nerve roots. There is moderate compression of the right L1 foraminal nerve root. At L2-L3 the annular contour is normal. Bilateral facet degenerative change. Mild canal stenosis. No mass effect on the traversing or foraminal nerve roots. At L3-L4 the annular contour is normal. Bilateral facet degenerative change. Mild canal stenosis. No mass effect on the traversing or foraminal nerve roots. At L4-L5 there is a diffusely bulging disc. Bilateral facet degenerative change. No canal stenosis. Moderate compression of both L4 foraminal nerve roots. At L5-S1 the annular contour is normal. Bilateral facet degenerative change. No canal stenosis. Mild to moderate mass effect on both L5 foraminal nerve roots. Limited visualization of the retroperitoneal anatomy reveals no abnormal finding. Psoas and paraspinal muscle groups are symmetric. MR/MR lumbar spine wo con IMPRESSION: There is multilevel degenerative spondylosis of the lumbar spine. Moderate canal stenosis at L1-L2. Mild canal stenosis at L2-L3 and L3-L4. There are varying degrees of mass effect on the traversing and foraminal segments the nerve roots as described above. For instance there is moderate compression of both L4 foraminal nerve roots related to degenerative changes at L4-L5.
== END 2021-12-10 11:05 | disposition home or self-care (01) ==
LOC: HO.MRI 11:04
PROVIDERS: Visit Provider Nurse Practitioner Family
DX: M47.816 Spondylosis without myelopathy or radiculopathy, lumbar region (principal); M62.830 Muscle spasm of back; M54.16 Radiculopathy, lumbar region
CPT/HCPCS: 72148

== ENCOUNTER → 2021-12-16 13:28 | Outpatient (BNVA) | payer MEDICAID, SELFPAY | PROVIDERS: PCP Family Medicine; Visit Provider Anesthesiology | DX: Z13.89 Encounter for screening for other disorder (principal) ==

== ENCOUNTER 2021-12-30 06:17 | Outpatient (REF) | payer MEDICAID, SELFPAY | END 2021-12-30 06:18 | disposition home or self-care (01) | LOC: HO.RADIR 06:17 | PROVIDERS: Visit Provider Anesthesiology | DX: Z13.89 Encounter for screening for other disorder (principal) ==

== ENCOUNTER 2022-01-05 10:00 | Outpatient (RCR) | payer MEDICAID, SELFPAY ==
[2021-12-29 09:08] VITALS: BP 169/79
== END 2022-01-05 11:16 | disposition home or self-care (01) ==
LOC: HO.PT 10:00
PROVIDERS: PCP Family Medicine; Visit Provider Family Medicine
DX: M17.12 Unilateral primary osteoarthritis, left knee (principal); M79.7 Fibromyalgia
CPT/HCPCS: 97110; 97140; 97161

== ENCOUNTER 2022-01-13 06:24 | Outpatient (REF) | payer MEDICAID, SELFPAY ==
--- NOTE | ~2022-01-13 | FL_ITS ---
EXAMINATION: XR FLUOROSCOPY WITH IMAGES CLINICAL INFORMATION: Sacral coccygeal disorder COMPARISON: MRI of December 10, 2021 TECHNIQUE: Fluoroscopy performed by Dr. Thad Franco. Fluoroscopy time: 0.2 minutes DAP: 0.0628 Gycm2 Images: 1 FINDINGS: Needle with contrast is seen about the dorsal aspect of the sacrum. FL/FL guidance in treatment room IMPRESSION: Intraoperative fluoroscopy provided for pain management procedure.
== END 2022-01-13 06:25 | disposition home or self-care (01) ==
LOC: HO.RADIR 06:24
PROVIDERS: Visit Provider Anesthesiology
DX: M53.3 Sacrococcygeal disorders, not elsewhere classified (principal); M47.816 Spondylosis without myelopathy or radiculopathy, lumbar region; M54.50 Low back pain, unspecified
CPT/HCPCS: 27096; J3300

== ENCOUNTER → 2022-02-10 11:10 | Outpatient (BNVA) | payer MEDICAID, SELFPAY | PROVIDERS: PCP Family Medicine; Visit Provider Nurse Practitioner Family | DX: M79.7 Fibromyalgia (principal); M47.26 Other spondylosis with radiculopathy, lumbar region; M62.830 Muscle spasm of back; M53.3 Sacrococcygeal disorders, not elsewhere classified; M25.552 Pain in left hip | CPT/HCPCS: 99212 ==

== ENCOUNTER 2022-03-10 06:22 | Outpatient (REF) | payer MEDICAID, SELFPAY | END 2022-03-10 06:23 | disposition home or self-care (01) | LOC: HO.RADIR 06:22 | PROVIDERS: Visit Provider Anesthesiology | DX: M54.16 Radiculopathy, lumbar region (principal); Z53.9 Procedure and treatment not carried out, unspecified reason | CPT/HCPCS: J3300 ==

== ENCOUNTER → 2022-03-19 10:06 | Outpatient (BNVA) | payer MEDICAID, SELFPAY | PROVIDERS: PCP Family Medicine; Visit Provider Surgery | DX: Z86.010 Personal history of colon polyps (principal) | CPT/HCPCS: 99212 ==

== ENCOUNTER 2022-05-08 07:40 | Day surgery (SDC) | payer MEDICAID, SELFPAY ==
[2022-05-04 15:11] VITALS: BMI 31.5
[2022-05-08 08:11] VITALS: BMI 30.9
--- NOTE | 2022-05-08 08:42 | HO.ANESPROP2 ---
HPI - Anesthesia Eval Consult details Narrative: 61 F for colonoscopy [facility] Active Problems Active Problems: All Active Problems (Updated 05/04/22 @ 15:09 by Kristal Ruiz RN) Left hip pain (Acute) Pain of left shoulder region (Acute) Left knee pain (Acute) Osteoarthritis of left hand (Acute) Thumb fracture (Acute) Sciatica of right side (Acute) Lumbar radiculopathy (Acute) Muscle spasm of back (Acute) Sacroiliac joint dysfunction (Acute) Lumbar spondylosis (Acute) History of adenomatous polyp of colon (Acute) Low back pain (Acute) Fibromyalgia (Acute) History of adenomatous polyp of colon (Acute) Past Medical History Medical History Asthma Diabetes Fibromyalgia History of adenomatous polyp of colon History of adenomatous polyp of colon HTN (hypertension) Hyperlipemia Low back pain Osteoporosis Functional capacity: independent ambulation Family History Family History Sister Lung cancer Family history of problems with anesthesia: No Surgical History Surgical History H/O colonoscopy History of carpal tunnel release History of excision of lesion History of hysterectomy with bilateral oophorectomy History of Problems with Anesthesia: No Social History Social History Patient Tobacco Use Status: Tobacco use Unknown Tobacco use type: Cigarette Cigarettes Per Day: 6 Meds Allergies Allergy/AdvReac Type Severity Reaction Status Date / Time No Known Allergies Allergy Verified 03/19/22 10:23 [No Known Allergies*] Active Medications: Current Medications Albuterol Sulfate (Albuterol Sulfate (0.083%) 2.5 Mg/3 Ml Vial.Neb) 2.5 mg INHALE ONCE PRN PRN Reason: Shortness of Breath/Wheezing Lactated Ringer's (Lr) 1,000 mls @ 100 mls/hr IVCONT .Q10H [facility] Home Medications Medication Instructions Recorded Confirmed Last Taken Type albuterol sulfate 2.5 mg/3 mL 1 amp inhalation QID PRN dyspnea 03/20/21 05/04/22 Unknown History (0.083 %) solution for nebulization albuterol sulfate 90 mcg/actuation 2 puff PO Q4-6H PRN dyspnea 03/20/21 05/04/22 Unknown History aerosol inhaler (ProAir HFA) aspirin 81 mg tablet,delayed 1 tab PO QAM 03/20/21 05/04/22 Unknown History release cholecalciferol (vitamin D3) 25 1 tab PO QAM 03/20/21 05/04/22 Unknown History mcg (1,000 unit) tablet fenofibrate micronized 200 mg 1 cap PO QPM 03/20/21 05/04/22 Unknown History capsule fluoxetine 40 mg capsule 1 cap PO QAM 03/20/21 05/04/22 Unknown History fluticasone propionate 110 2 puff inhalation BID 03/20/21 05/04/22 Unknown History mcg/actuation HFA aerosol inhaler (Flovent HFA) hydrochlorothiazide 25 mg tablet 1 tab PO QAM 03/20/21 05/04/22 Unknown History lisinopril 2.5 mg tablet 1 tab PO QPM 03/20/21 05/04/22 Unknown History loratadine 10 mg tablet 1 tab PO DAILY 03/20/21 05/04/22 Unknown History metformin 500 mg tablet,extended 2 tab PO BID 03/20/21 05/04/22 Unknown History release 24 hr multivitamin 1 tab PO QAM 03/20/21 05/04/22 Unknown History omeprazole 20 mg capsule,delayed 1 cap PO QAM 03/20/21 05/04/22 Unknown History release quetiapine 100 mg tablet 1 tab PO BEDTIME 03/20/21 05/04/22 Unknown History simvastatin 40 mg tablet 1 tab PO BEDTIME 03/20/21 05/04/22 Unknown History zolpidem 10 mg tablet 0.5 - 1 tab PO BEDTIME PRN insomnia 03/20/21 05/04/22 Unknown History lorazepam 1 mg tablet 1 mg PO BID PRN Anxiety 10/22/21 05/04/22 Unknown History lamotrigine 25 mg tablet 50 mg PO QPM 11/17/21 05/04/22 Unknown History Exam Exam Date and Time: May 08, 2022 0842 Height,Weight and Vital Signs: Height 5 ft 2 in Weight 76.657 kg Airway Mallampati Class: III TM Dist: >3cm Neck ROM: Full Loose/Missing/Broken Teeth: Yes (Poor dentition globally ) Heart: S1,S2 Lungs: b/l breath sounds Assessment and Plan Assessment Anesthesia Assessment: Anesthesia Plan Discussed and Chart Reviewed Final Anesthetic Review Family History of Problems with Anesthesia: No History of Problems with Anesthesia: No NPO: Yes ASA Class: III Final Preanesthetic Review: Meds/Allgs Chart Reviewed, Consent Obtained/Reviewed and Anes Risks/Benef Reviewed Patient Risk: Intermediate Procedure Risk: Intermediate Anesthetic Plan Anesthetic Plan: MAC: Disposition: Standard PACU
[2022-05-08 08:45] VITALS: BP 150/70; PULSE 87; RESP 18; TEMP 36.3; O2SAT 95
[2022-05-08] MEDS: Lactated Ringers 1,000 ML 100 ML IVCONT (08:48)
--- NOTE | 2022-05-08 08:58 | PC.NURSE ---
late entry: 0900 pt admits to L chest wall pain yesterday morning after sleeping, applied bengay with relief, no sob, no dizziness fluid power mechanic utilized. Denies chest pain at this time. Dr. Matute aware.
--- NOTE | 2022-05-08 09:54 | P.HPSUR_ITS ---
Pre-Procedural Eval Section A Date of Service: 05/08/22 Section B Chief Complaint: hx of polyps Details of Present Illness: had serrated adenoma in 2019; currently denies GI complaints Relevant Social History: None Present Medications: see Short Stay Collaborative assessment Medical History: Significant History ( sciatica fibromyalgia arthritis) Allergies: Allergies Allergy/AdvReac Type Severity Reaction Status Date / Time No Known Allergies Allergy Verified 03/19/22 10:23 [No Known Allergies*] Review of Systems Sugical H&P ROS: Negative: Constitution, Cardiovascular, Respiratory, Neurological, Psychiatric, Hem-Onc, Allergic/Immunologic, Gastrointestinal, Genitourinary, Musculoskeletal, Integumentary, Endocrine and Eyes/Ears/Nose/Throat Exam Surgical H&P Exam: Normal: HEENT, Normal: Heart, Normal: Lungs, Normal: E xtremities, Normal: Abdomen, Normal: Skin and Normal: Neurological Plan Diagnosis/Plan: Unchanged I have reviewed the history and physical and performed a pertinent physical examination on my patient. No changes have occurred unless specified.
--- NOTE | 2022-05-08 09:56 | W.PM.OPN ---
Operative Note Operative Note Date of Service: 05/08/22 Narrative: Preop diagnosis: History of serrated adenoma Postop diagnosis: Normal colonoscopy findings, suboptimal prep Procedure: Colonoscopy Surgeon: González Becker MD The patient is a 61-year-old female who had a serrated adenoma in the tTransverse colon on a colonoscopy 2019. I had recommended a short interval follow-up. She understood the technique of the procedure and she was aware of the risks, benefits, and alternatives. The patient was brought to the operating room and placed in left lateral decubitus position under monitored anesthesia care. A surgical time-out was done. A full digital rectal exam was done and this did not reveal any significant anal lesions. The tip of the Olympus colonoscope was gently introduced through the anal orifice advanced with insufflation all the way to the cecum. The cecum was intubated. The cecum was identified by visualization of the ileocecal valve as well as the appendiceal orifice. The cecal mucosa was unremarkable. The scope was gradually withdrawn with careful examination of the entire colonic mucosa being done with scope withdrawal. The patient had Suboptimal bowel prep with some segments coated with thin bilious stools. It was unlikely that any large lesion may have been missed. The sigmoid was very tortuous. There were no polyps or any lesions seen. The rectum was reached and there were no lesions seen. The anal canal was unremarkable. The scope was then withdrawn completely with desufflation The patient tolerated procedure well. There were no immediate complications. In view of the suboptimal prep, I would recommend another colonoscopy in 5 years.
[2022-05-08 10:05] VITALS: BP 123/73; PULSE 81; RESP 17; TEMP 36.2; O2SAT 99
[2022-05-08 10:09] LABS: Glucose, Whole Blood 126 mg/dL (60-115)
[2022-05-08 10:20] VITALS: BP 128/72; PULSE 81; RESP 18; TEMP 36.1; O2SAT 96
[2022-05-08 10:35] VITALS: BP 128/80; PULSE 63; RESP 18; TEMP 36.1; O2SAT 98
== END 2022-05-08 10:40 | disposition home or self-care (01) ==
PROVIDERS: PCP Family Medicine; Visit Provider Surgery
PROC: 0DJD8ZZ Inspection of Lower Intestinal Tract, Via Natural or Artificial Opening Endoscopic (ICD-10-PCS; CPT 45378; principal; 2022-05-08 09:00)
DX: Z12.11 Encounter for screening for malignant neoplasm of colon (principal); Z86.010 Personal history of colon polyps; K59.00 Constipation, unspecified; M79.7 Fibromyalgia; M81.0 Age-related osteoporosis without current pathological fracture; J45.909 Unspecified asthma, uncomplicated; E11.9 Type 2 diabetes mellitus without complications; I10 Essential (primary) hypertension; E78.5 Hyperlipidemia, unspecified; Z79.82 Long term (current) use of aspirin; Z79.51 Long term (current) use of inhaled steroids; Z79.84 Long term (current) use of oral hypoglycemic drugs; Z79.899 Other long term (current) drug therapy; F17.210 Nicotine dependence, cigarettes, uncomplicated
CPT/HCPCS: 45378; 82947; 93005

== ENCOUNTER 2022-06-29 15:56 | Outpatient (REF) | payer MEDICAID, SELFPAY ==
--- NOTE | ~2022-06-29 | XR_ITS ---
EXAMINATION: XR WRIST, RIGHT CLINICAL INFORMATION: M25.531 - Pain in right wrist COMPARISON: Radiographs right hand and wrist 09/10/2010 TECHNIQUE: Right wrist is imaged in 3 views. FINDINGS: No fracture or dislocation. The ulnar variance is neutral. Pronator quadratus fat pad is normal. The carpus shows no significant joint narrowing and no visible chondrocalcinosis or erosive changes. There is mild spurring lateral base first distal phalanx. XR/XR wrist RT min 3V IMPRESSION: 1. No fracture, dislocation, or erosive arthropathy. 2. Mild spurring lateral base first distal phalanx.
== END 2022-06-29 15:57 | disposition home or self-care (01) ==
LOC: HO.HOSX 15:56
PROVIDERS: Visit Provider Orthopaedic Surgery
DX: M25.531 Pain in right wrist (principal)
CPT/HCPCS: 20550; 73110; 99212; J1100

== ENCOUNTER → 2022-06-30 08:44 | Outpatient (BNVA) | payer MEDICAID, SELFPAY | PROVIDERS: PCP Family Medicine; Visit Provider Orthopaedic Surgery | DX: M65.4 Radial styloid tenosynovitis [de Quervain] (principal); M18.11 Unilateral primary osteoarthritis of first carpometacarpal joint, right hand; M77.8 Other enthesopathies, not elsewhere classified; R22.31 Localized swelling, mass and lump, right upper limb | CPT/HCPCS: 20550; 99212; J1100 ==

== ENCOUNTER 2022-08-10 07:42 | Outpatient (REF) | payer MEDICAID, SELFPAY ==
--- NOTE | ~2022-08-10 | CT_ITS ---
EXAMINATION: CT CHEST WITHOUT CONTRAST CLINICAL INFORMATION: COPD and smoker. COMPARISON: Chest x-ray 06/30/2022. CT chest 07/01/2021 TECHNIQUE: Multidetector volumetric CT imaging of the chest was done. Axial MIP volume rendering provided. Sagittal and coronal reformatted images were obtained. This CT examination was performed using dose optimization techniques as appropriate, variously including the following: *Automated exposure control *Adjustment of mA and/or kV according to patient size (this includes techniques or standardized protocols for targeted exams where dose is matched to indication/reason for exam; i.e. extremities or head) *Use of iterative reconstruction technique DLP: 189 mGy-cm FINDINGS: GYROSCOPE REPAIRER: Unremarkable. LUNGS: The lungs are well-expanded and clear of acute pneumonic process. There is a subpleural-based 7 mm nodule right upper lobe axial image 163/5. Previously described right middle lobe nodule is not visualized. There is a 2 mm nodule left lower lobe axial image 298/5, stable. Left lower lobe 3 mm perivascular nodule visualized on axial image 361/5, stable. No additional nodules seen. MEDIASTINUM: The thyroid lobes are symmetric and normal. The central trachea and the bronchi are widely patent. Heart size and the great vessels are normal caliber. No pericardial effusion seen. No abnormal size mediastinal or hilar lymph nodes seen. A 1 cm anterior mediastinal centimeters lymph node visualized on axial image 17/3, stable. CORONARY ARTERY CALCIFICATION: None visualized on this study. PLEURA: There is no pleural effusion. No pleural mass or thickening. AXILLA: No lymphadenopathy. UPPER ABDOMEN: The liver is mildly enlarged and diffusely attenuated. Visualized gallbladder, spleen, pancreas and adrenal glands are unremarkable. OSSEOUS STRUCTURES: No aggressive lytic or sclerotic process seen. There is mild ventral spondylosis. CT/CT chest wo IV con IMPRESSION: 1. Bilateral pulmonary nodules are stable. No new nodules seen. 2. No abnormal mediastinal or axillary lymph nodes seen. Fleischner guidelines were followed.
== END 2022-08-10 07:43 | disposition home or self-care (01) ==
LOC: HO.CT 07:42
PROVIDERS: PCP Family Medicine; Visit Provider Family Medicine
DX: R91.8 Other nonspecific abnormal finding of lung field (principal); E11.65 Type 2 diabetes mellitus with hyperglycemia; I10 Essential (primary) hypertension; J44.9 Chronic obstructive pulmonary disease, unspecified; D12.6 Benign neoplasm of colon, unspecified; M79.7 Fibromyalgia; E78.2 Mixed hyperlipidemia; F17.200 Nicotine dependence, unspecified, uncomplicated; F33.1 Major depressive disorder, recurrent, moderate; F63.81 Intermittent explosive disorder; R07.9 Chest pain, unspecified
CPT/HCPCS: 71250

== ENCOUNTER → 2022-09-01 10:05 | Outpatient (BNVA) | payer MEDICAID, SELFPAY | PROVIDERS: PCP Family Medicine; Visit Provider Nurse Practitioner Family | DX: M47.26 Other spondylosis with radiculopathy, lumbar region (principal); M62.830 Muscle spasm of back; M53.3 Sacrococcygeal disorders, not elsewhere classified; M25.552 Pain in left hip; E11.40 Type 2 diabetes mellitus with diabetic neuropathy, unspecified | CPT/HCPCS: 99212 ==

== ENCOUNTER → 2022-09-24 12:31 | Outpatient (BNVA) | payer MEDICAID, SELFPAY | PROVIDERS: PCP Family Medicine; Referring Provider Family Medicine; Visit Provider Internal Medicine Cardiovascular Disease | DX: R07.89 Other chest pain (principal); M54.16 Radiculopathy, lumbar region; M79.7 Fibromyalgia; M62.830 Muscle spasm of back; Z79.899 Other long term (current) drug therapy | CPT/HCPCS: 93005; 99202 ==

== ENCOUNTER 2022-10-14 05:49 | Outpatient (REF) | payer MEDICAID, SELFPAY ==
--- NOTE | ~2022-10-14 | FL_ITS ---
EXAMINATION: XR FLUOROSCOPY WITH IMAGES CLINICAL INFORMATION: M54.16 - Radiculopathy, lumbar region COMPARISON: MR lumbar spine 12/10/2021 TECHNIQUE: Fluoroscopy Supervised By: Dr. Coleman Gunn. Fluoroscopy Time: 0.2 minutes. Cumulative Dose: 5.83 mGy. DAP: 0.731 Gycm2. Images: 2. FINDINGS: Spinal needle is seen interlaminar posterior lumbar region. There is contrast in the epidural space. No visible vascular communication. There are degenerative changes with disc narrowing and vertebral spurring. FL/FL guidance in treatment room IMPRESSION: Fluoroscopy for pain management procedures.
== END 2022-10-14 05:50 | disposition home or self-care (01) ==
LOC: CF 05:49
PROVIDERS: Visit Provider Internal Medicine
DX: M54.16 Radiculopathy, lumbar region (principal)
CPT/HCPCS: 62323; J1020

== ENCOUNTER → 2022-11-10 09:02 | Outpatient (BNVA) | payer MEDICAID, SELFPAY | PROVIDERS: PCP Family Medicine; Visit Provider Nurse Practitioner Family | DX: M54.16 Radiculopathy, lumbar region (principal); M47.816 Spondylosis without myelopathy or radiculopathy, lumbar region; M53.3 Sacrococcygeal disorders, not elsewhere classified; M62.830 Muscle spasm of back; E11.40 Type 2 diabetes mellitus with diabetic neuropathy, unspecified | CPT/HCPCS: 99212 ==

== ENCOUNTER 2022-11-19 07:53 | Outpatient (REF) | payer MEDICAID, SELFPAY ==
--- NOTE | ~2022-11-19 | MM_ITS ---
EXAMINATION: MM SCREENING DIGITAL BREAST TOMOSYNTHESIS, BILATERAL CLINICAL INFORMATION: Screening. Asymptomatic. The lifetime risk of breast cancer based on the Tyrer-Cuzick Model is 5.3%. COMPARISON: Mammography: October 10, 2021 and dating back to November 20, 2013. TECHNIQUE: Digital breast tomosynthesis is performed in both the craniocaudal and mediolateral oblique views along with computer-aided detection (CAD). Synthesized 2D images are generated from the tomosynthesis. FINDINGS: There are scattered areas of fibroglandular density (ACR BI-RADS breast composition Category b). There are no significant masses, abnormal calcifications, or other abnormalities. MM/MM tomosynthesis screening BI IMPRESSION: No significant changes from prior exam. ASSESSMENT: BI-RADS 1: Negative RECOMMENDATION: Routine annual mammography screening. This patient's information was entered into a reminder system with a target due date for their next mammogram.
== END 2022-11-19 07:54 | disposition home or self-care (01) ==
LOC: HO.MAMMO 07:53
PROVIDERS: PCP Family Medicine; Visit Provider Family Medicine
DX: Z12.31 Encounter for screening mammogram for malignant neoplasm of breast (principal)
CPT/HCPCS: 77063; 77067

== ENCOUNTER → 2022-11-27 08:14 | Outpatient (REF) | payer MEDICAID, SELFPAY | LOC: HO.CARD 08:14 | PROVIDERS: PCP Family Medicine; Visit Provider Internal Medicine Cardiovascular Disease | DX: Z13.89 Encounter for screening for other disorder (principal) ==

== ENCOUNTER 2022-12-04 16:23 | Emergency (ER) | payer MEDICAID, SELFPAY ==
[2022-12-04 16:34] VITALS: BP 121/82; PULSE 114; RESP 18; TEMP 38.4; O2SAT 96; BMI 30.2
--- NOTE | 2022-12-04 16:36 | ED.GENADULT ---
HPI - General Adult General Chief complaint: Nausea/Vomiting/Diarrhea Stated complaint: viral infection, fever, N/V, feels like she' dying Time Seen by Provider: 12/04/22 17:46 Source: patient Mode of arrival: ambulatory Limitations: no limitations History of Present Illness HPI narrative: 62-year-old female history of diabetes, de Quervain tenosynovitis, fibromyalgia presents to the emergency department for evaluation a fatigue, malaise, subjective fevers and chills, nausea, vomiting, diarrhea that started today at noon. Patient reports there is a virus going around in her family, her granddaughter's home with similar symptoms. Patient tells me she feels terrible and she is now starting to have body aches and pains as well as a diffuse headache. Patient denies chest pain, shortness of breath, hematemesis, hematochezia, vision changes, dizziness. Patient denies head trauma. Related Data Home Medications Medication Instructions Recorded Confirmed albuterol sulfate 2.5 mg/3 mL 1 amp inhalation QID PRN dyspnea 03/20/21 11/10/22 (0.083 %) solution for nebulization albuterol sulfate 90 mcg/actuation 2 puff PO Q4-6H PRN dyspnea 03/20/21 11/10/22 aerosol inhaler (ProAir HFA) aspirin 81 mg tablet,delayed 1 tab PO QAM 03/20/21 11/10/22 release cholecalciferol (vitamin D3) 25 1 tab PO QAM 03/20/21 11/10/22 mcg (1,000 unit) tablet fluticasone propionate 110 2 puff inhalation BID 03/20/21 11/10/22 mcg/actuation HFA aerosol inhaler (Flovent HFA) metformin 500 mg tablet,extended 2 tab PO BID 03/20/21 11/10/22 release 24 hr multivitamin 1 tab PO QAM 03/20/21 11/10/22 omeprazole 20 mg capsule,delayed 1 cap PO QAM 03/20/21 11/10/22 release simvastatin 40 mg tablet 1 tab PO BEDTIME 03/20/21 11/10/22 zolpidem 10 mg tablet 0.5 - 1 tab PO BEDTIME PRN insomnia 03/20/21 11/10/22 lorazepam 1 mg tablet 1 mg PO BID PRN Anxiety 10/22/21 11/10/22 lamotrigine 25 mg tablet 50 mg PO QPM 11/17/21 11/10/22 glipizide 5 mg tablet 5 mg PO DAILY diabetes 09/01/22 11/10/22 fluoxetine 40 mg capsule 40 mg PO QAM 09/24/22 11/10/22 hydrochlorothiazide 25 mg tablet 25 mg PO QAM 09/24/22 11/10/22 lisinopril 2.5 mg tablet 2.5 mg PO QPM 09/24/22 11/10/22 pregabalin 150 mg capsule 150 mg PO BID pain 09/24/22 11/10/22 quetiapine 100 mg tablet 100 mg PO BEDTIME 09/24/22 11/10/22 tizanidine 4 mg tablet 4 mg PO BID PRN muscle spasticity 09/24/22 11/10/22 Previous Rx's Medication Instructions Recorded lidocaine 5 % topical patch 1 patch topical DAILY PRN pain #30 10/08/21 (Lidoderm) ea nabumetone 750 mg tablet 750 mg PO BID PRN pain (scale 11/10/22 score 7-10) #60 tabs loperamide 2 mg capsule 2 mg PO Q6H PRN loose stool #30 12/04/22 (Anti-Diarrheal (loperamide)) caps ondansetron 4 mg disintegrating 4 mg PO Q6H PRN nausea and 12/04/22 tablet vomiting #14 tabs Allergies Allergy/AdvReac Type Severity Reaction Status Date / Time No Known Allergies Allergy Verified 11/10/22 09:24 [No Known Allergies*] Review of Systems Review of Systems: Constitutional : No Weight loss, + Fever, + Chills, + Fatigue, + Malaise ENT/Mouth : No sore throat, No Rhinorrhea Eyes: No Eye Pain, No Swelling, No Redness Cardiovascular : No Chest Pain, No SOB, No Dyspnea on Exertion, No Orthopnea, No Edema, No Palpitations Respiratory : No Cough, No Sputum, No Wheezing Gastrointestinal : + Nausea, + Vomiting, + Diarrhea, No Constipation, No abdominal Pain, No Hematochezia, No Melena Genitourinary : No Dysuria, No Urinary Frequency, No Hematuria, Musculoskeletal : No joint pain, No Myalgias, No Joint Swelling Skin : No Skin Lesions, No rash Neuro : No Weakness, No Numbness, No Dizziness, No Headache Psych : No Anxiety/Panic, No Depression All other systems reviewed and are negative Yes all other systems are reviewed and are negative [facility] Past Medical History Attestation statement: The following information was validated with the patient. Source: old records reviewed and nursing notes reviewed Medical History Asthma Diabetes Fibromyalgia History of adenomatous polyp of colon History of adenomatous polyp of colon HTN (hypertension) Hyperlipemia Low back pain Osteoporosis Surgical History H/O colonoscopy History of carpal tunnel release History of excision of lesion History of hysterectomy with bilateral oophorectomy Family History Family History Sister Lung cancer Social History Social History Alcohol intake: never Patient Tobacco Use Status: Tobacco use Unknown Tobacco use type: Cigarette Cigarettes Per Day: 6 Smoked in Last 30 Days: No Use of substances other than those prescribed or required for medical reasons: No Advance Directives: No Advance Directives Information Provided: Yes Patient : No Physical Exam ED Vital Signs: Vital Signs - 24 hr 12/04/22 16:34 12/04/22 17:35 12/04/22 20:05 Temperature 101.1 F H 99.7 F 99.5 F Pulse Rate 114 H 114 H 95 Respiratory Rate 18 20 17 Blood Pressure 121/82 135/79 129/74 Pulse Oximetry 96 96 100 Oxygen Delivery Method Room Air Room Air Room Air BMI result Body Mass Index 30.2 vss Appearance: Alert.? Oriented X3.? No acute distress.? Head: Normocephalic, atraumatic, no step-offs or deformities Eyes: Pupils equal, round and reactive to light.? Neck: Normal inspection.? Neck supple.? CVS: Normal heart rate and rhythm.? Pulses normal.? Respiratory: No respiratory distress.? Breath sounds normal.? Abdomen: Soft and nontender.? Skin: Skin warm and dry.? Normal skin color.? Normal skin turgor.? Extremities: No lower extremity edema.? No calf ttp. 5/5 strength to bilateral upper and lower extremities Back: No midline tenderness, no C-spine tenderness, full range of motion, no CVA tenderness bilaterally Neuro: Oriented X 3.? No motor deficit.? No sensory deficit. CN 2-12 intact Course Course Course Narrative: RME performed by Alexandria Gutierrez PA-C. Patient is a 62 year old assigned female at presenting to the emergency department with nausea, fever, and diarrhea. Labs and swab ordered. Patient placed back in the waiting room pending room availability and results. Reevaluation(s) Reevaluation #1: CBC appears to be within patient's baseline. Chemistry unremarkable. Slight bump in transaminases could be secondary to acute viral illness. No abdominal tenderness to palpation however. No need for further imaging. Urine without infection. Influenza, RSV and COVID negative. Patient feeling better. Fever improved. This is likely viral illness. Educated patient on diagnosis and treatment plan, answered all question, patient verbalizes understanding. At this time patient will be discharged home, advised to return with new or worsening symptoms. Educated on worrisome signs and symptoms and when to return. At this time I feel comfortable discharge home. Time: 20:52 Medications Administered Discontinued Medications Generic Name Dose Route Start Last Admin Trade Name Freq PRN Reason Stop Dose Admin Acetaminophen 650 mg 12/04/22 17:47 12/04/22 18:06 Acetaminophen 325 Mg Tablet PO 12/04/22 17:48 650 mg ONCE ONE Administration Sodium Chloride 1,000 mls @ 999 mls/hr 12/04/22 18:15 12/04/22 20:41 Ns IV 12/04/22 19:15 Infused .Q1H1M NEGAR Infusion Medical Decision Making Medical Decision Making [facility] Narrative: 62-year-old female presents with nausea, vomiting, diarrhea, myalgias, headache, subjective fevers and chills since noon Physical exam benign. Slight fever likely secondary to viral illness. This is likely viral in origin. Low suspicion for C diff, bacterial diarrhea, intra-abdominal etiologies such as appendicitis, cholecystitis, diverticulitis, pancreatitis. Other differentials include colitis. Plan fluids, Tylenol, GI panel, labs, UA Differential Diagnosis Differential Diagnoses: The differential diagnosis associated with the presentation includes This is likely viral in origin. Low suspicion for C diff, bacterial diarrhea, intra-abdominal etiologies such as appendicitis, cholecystitis, diverticulitis, pancreatitis. Other differentials include colitis. Admission/Observation Consideration of admission/observation: Escalation of care including admission/observation considered Lab Data MDM Lab Attestation statement: I reviewed the patient's lab results. 12/04/22 16:46 12/04/22 16:45 Labs: Lab Results 12/04/22 12/04/22 12/04/22 Range/Units 16:45 16:45 16:46 WBC 10.1 (4.8-10.8) X10*3/uL RBC 4.27 (4.20-5.50) X10*6/uL Hgb 11.1 L (12.0-16.0) g/dl Hct 35.2 L (37.0-47.0) % MCV 82.4 (80.0-98.0) fL MCH 26.0 L (27.0-33.0) pg MCHC 31.5 (31.0-35.0) g/dl RDW 13.5 (11.0-16.0) % Plt Count 375 (160-400) X10*3/uL MPV 10.7 (9.4-12.3) fL Immature Gran % (Auto) 0.3 (0.0-0.4) % Neut % (Auto) 88.2 H (45-73) % Lymph % (Auto) 6.4 L (20-40) % [place] % (Auto) 4.1 (2-11) % Eos % (Auto) 0.8 (0-4) % Baso % (Auto) 0.2 (0-2) % Lymph # (Auto) 0.6 L (1.2-4.9) X10*3/uL [place] # (Auto) 0.4 (0.1-1.2) X10*3/uL Eos # (Auto) 0.1 (0.0-0.4) X10*3/uL Baso # (Auto) 0.0 (0.0-0.2) X10*3/uL Abs Immat Gran (auto) 0.03 (0.00-0.03) X10*3/uL Absolute Neuts (auto) 8.9 H (2.0-8.3) x10*3/uL Absolute Nucleated RBC 0.000 (0.0-0.012) X10*3/uL Nucleated RBC % (auto) 0.0 (0.0-0.2) /100WBC ESR (0-20) MM/HR Sodium 140 (135-145) mmol/L Potassium 3.7 (3.3-5.1) mmol/L Chloride 106 (96-108) mmol/L Carbon Dioxide 24 (22-29) mmol/L Anion Gap 14 (12-20) BUN 12 (9-16) mg/dL Creatinine 0.69 (0.5-1.4) mg/dL Estim Creat Clear Calc 82.1 Estimated GFR > 60 Random Glucose 124 H (60-115) mg/dL Calcium 9.0 (8.4-10.2) mg/dL Magnesium 1.6 (1.6-2.6) mg/dL Total Bilirubin 0.3 (0.0-1.0) mg/dL AST 95 H (5-31) U/L ALT 46 H (0-31) U/L Alkaline Phosphatase 72 (39-117) U/L C-Reactive Protein 1.76 H (< or = 0.50) mg/dL Total Protein 7.0 (6.5-8.0) g/dL Albumin 4.2 (3.5-5.0) g/dL Urine Color Urine Appearance Urine pH (5.0-9.0) Ur Specific [place] (1.005-1.025) Urine Protein (Neg-Trace) mg/dL Urine Glucose (UA) (Negative) mg/dL Urine Ketones (Negative) mg/dL Urine Blood (Negative) Urine Nitrite (Negative) Ur Leukocyte Esterase (Negative) Influenza Type A (PCR) NEGATIVE (Negative) Influenza Type B (PCR) NEGATIVE (Negative) RSV RNA Qual (PCR) NEGATIVE (Negative) SARS-CoV-2 RNA (RT-PCR) NEGATIVE (Negative) 12/04/22 12/04/22 Range/Units 16:46 20:04 WBC (4.8-10.8) X10*3/uL RBC (4.20-5.50) X10*6/uL Hgb (12.0-16.0) g/dl Hct (37.0-47.0) % MCV (80.0-98.0) fL MCH (27.0-33.0) pg MCHC (31.0-35.0) g/dl RDW (11.0-16.0) % Plt Count (160-400) X10*3/uL MPV (9.4-12.3) fL Immature Gran % (Auto) (0.0-0.4) % Neut % (Auto) (45-73) % Lymph % (Auto) (20-40) % [place] % (Auto) (2-11) % Eos % (Auto) (0-4) % Baso % (Auto) (0-2) % Lymph # (Auto) (1.2-4.9) X10*3/uL [place] # (Auto) (0.1-1.2) X10*3/uL Eos # (Auto) (0.0-0.4) X10*3/uL Baso # (Auto) (0.0-0.2) X10*3/uL Abs Immat Gran (auto) (0.00-0.03) X10*3/uL Absolute Neuts (auto) (2.0-8.3) x10*3/uL Absolute Nucleated RBC (0.0-0.012) X10*3/uL Nucleated RBC % (auto) (0.0-0.2) /100WBC ESR 17 (0-20) MM/HR Sodium (135-145) mmol/L Potassium (3.3-5.1) mmol/L Chloride (96-108) mmol/L Carbon Dioxide (22-29) mmol/L Anion Gap (12-20) BUN (9-16) mg/dL Creatinine (0.5-1.4) mg/dL Estim Creat Clear Calc Estimated GFR Random Glucose (60-115) mg/dL Calcium (8.4-10.2) mg/dL Magnesium (1.6-2.6) mg/dL Total Bilirubin (0.0-1.0) mg/dL AST (5-31) U/L ALT (0-31) U/L Alkaline Phosphatase (39-117) U/L C-Reactive Protein (< or = 0.50) mg/dL Total Protein (6.5-8.0) g/dL Albumin (3.5-5.0) g/dL Urine Color Yellow Urine Appearance Clear Urine pH 5.5 (5.0-9.0) Ur Specific [place] 1.010 (1.005-1.025) Urine Protein Negative (Neg-Trace) mg/dL Urine Glucose (UA) Negative (Negative) mg/dL Urine Ketones Negative (Negative) mg/dL Urine Blood Negative (Negative) Urine Nitrite Negative (Negative) Ur Leukocyte Esterase Negative (Negative) Influenza Type A (PCR) (Negative) Influenza Type B (PCR) (Negative) RSV RNA Qual (PCR) (Negative) SARS-CoV-2 RNA (RT-PCR) (Negative) Radiology Impression Discussion of test interpretation with radiology: I have reviewed the radiologist's reading. Discharge Plan Discharge Clinical Impression: Viral illness, Nausea & vomiting, Diarrhea Patient Disposition: Home, Self-Care Instructions: Acute Nausea and Vomiting (ED), Viral Syndrome (ED) Additional Instructions: Take your medications as prescribed. If you were prescribed antibiotics today, it is important that you take your medication to their entirety, do not skip any doses, do not finish them early. Follow-up with your primary care provider this week. Return to the emergency department with new or worsening symptoms. Such as fevers, chills, chest pain, shortness of breath, nausea, vomiting, dizziness, headache, vision changes, lethargy In case of emergency call 911 Prescriptions: New loperamide [Anti-Diarrheal (loperamide)] 2 mg capsule 2 mg PO Q6H PRN (Reason: loose stool) Qty: 30 0RF ondansetron 4 mg tablet,disintegrating 4 mg PO Q6H PRN (Reason: nausea and vomiting) Qty: 14 0RF No Action multivitamin Tablet 1 tab PO QAM albuterol sulfate 2.5 mg /3 mL (0.083 %) solution for nebulization 1 amp inhalation QID PRN (Reason: dyspnea) aspirin 81 mg tablet,delayed release (DR/EC) 1 tab PO QAM simvastatin 40 mg tablet 1 tab PO BEDTIME omeprazole 20 mg capsule,delayed release(DR/EC) 1 cap PO QAM zolpidem 10 mg tablet 0.5 - 1 tab PO BEDTIME PRN (Reason: insomnia) albuterol sulfate [ProAir HFA] 90 mcg/actuation HFA aerosol inhaler 2 puff PO Q4-6H PRN (Reason: dyspnea) metformin 500 mg tablet extended release 24 hr 2 tab PO BID fluticasone propionate [Flovent HFA] 110 mcg/actuation HFA aerosol inhaler 2 puff inhalation BID cholecalciferol (vitamin D3) 25 mcg (1,000 unit) tablet 1 tab PO QAM fluoxetine 40 mg capsule 40 mg PO QAM hydrochlorothiazide 25 mg tablet 25 mg PO QAM lisinopril 2.5 mg tablet 2.5 mg PO QPM quetiapine 100 mg tablet 100 mg PO BEDTIME lidocaine [Lidoderm] 5 % adhesive patch,medicated 1 patch topical DAILY MDD remove after 12 hours PRN (Reason: pain) Qty: 30 0RF Rx Instructions: leave on most painful area for up to 12 hrs lorazepam 1 mg tablet 1 mg PO BID PRN (Reason: Anxiety) lamotrigine 25 mg tablet 50 mg PO QPM glipizide 5 mg tablet 5 mg PO DAILY nabumetone 750 mg tablet 750 mg PO BID PRN (Reason: pain (scale score 7-10)) Qty: 60 0RF Rx Instructions: Take it with food and full glass of water. pregabalin 150 mg capsule 150 mg PO BID tizanidine 4 mg tablet 4 mg PO BID PRN (Reason: muscle spasticity) Referrals: Kiara Resendez MD [Primary Care Provider] - 2 days
[2022-12-04 16:52] LABS: MANUAL DIFF FLAG NO
[2022-12-04 16:53] LABS: Basophils Percent Auto 0.2 % (0-2); Eosinophils Absolute Auto 0.1 X10*3/uL (0.0-0.4); Eosinophils Percent Auto 0.8 % (0-4); Hematocrit 35.2 % (37.0-47.0); Hemoglobin 11.1 g/dl (12.0-16.0); Imm Gran Abs Auto 0.03 X10*3/uL (0.00-0.03); Imm Gran Pct Auto 0.3 % (0.0-0.4); Lymphocytes Absolute Auto 0.6 X10*3/uL (1.2-4.9); Lymphocytes Percent Auto 6.4 % (20-40); Mean Corpuscular HGB Conc 31.5 g/dl (31.0-35.0); Mean Corpuscular Volume 82.4 fL (80.0-98.0); Mean Platelet Volume 10.7 fL (9.4-12.3); Monocytes Absolute Auto 0.4 X10*3/uL (0.1-1.2); Monocytes Percent Auto 4.1 % (2-11); Neutrophils Absolute Auto 8.9 x10*3/uL (2.0-8.3); Neutrophils Percent Auto 88.2 % (45-73); Platelet Count 375 X10*3/uL (160-400); Red Blood Count 4.27 X10*6/uL (4.20-5.50); Red Cell Distribution Width 13.5 % (11.0-16.0); White Blood Count 10.1 X10*3/uL (4.8-10.8)
[2022-12-04 17:07] LABS: Alanine Aminotransferase 46 U/L (0-31); Albumin Level 4.2 g/dL (3.5-5.0); Alkaline Phosphatase 72 U/L (39-117); Anion Gap 14 (12-20); Aspartate Amino Transferase 95 U/L (5-31); Bilirubin Total 0.3 mg/dL (0.0-1.0); Blood Urea Nitrogen 12 mg/dL (9-16); C Reactive Protein 1.76 mg/dL (< or = 0.50); Carbon Dioxide 24 mmol/L (22-29); Chloride 106 mmol/L (96-108); Creatinine Clr Calc Pharmacy 82.1; Estimated Glomerular Filt Rate > 60; Glucose Random 124 mg/dL (60-115); Magnesium 1.6 mg/dL (1.6-2.6); Potassium 3.7 mmol/L (3.3-5.1); Sodium 140 mmol/L (135-145)
[2022-12-04 17:29] LABS: Influenza A PCR NEGATIVE (Negative); Influenza B PCR NEGATIVE (Negative); Resp Syncy Virus RNA Qual PCR NEGATIVE (Negative); SARS COV2 PCR INHOUSE NEGATIVE (Negative)
[2022-12-04 17:35] VITALS: BP 135/79; PULSE 114; RESP 20; TEMP 37.6; O2SAT 96
--- NOTE | 2022-12-04 17:36 | MHC.EDTECH ---
THIS PCT JUST ASSUMED CARE OF PATIENT ,VITALS SIGN TAKEN ,PATIENT WAS HOOKED UP TO PATIENT INFORMATION COORDINATOR .
[2022-12-04 17:39] LABS: Erythrocyte Sedimentation Rate 17 MM/HR (0-20)
[2022-12-04] MEDS: Acetaminophen 325 MG TABLET 650 MG PO (18:06)
[2022-12-04] MEDS: 0.9 % Sodium Chloride 1,000 ML 999 ML IV (18:14)
--- NOTE | 2022-12-04 18:19 | PC.NURSE ---
Pt. stating to this RN that she is experiencing the worst headache of my life, with c/o light sensitivity. Denies visual changes or a thunderclap sensation. ABBY Layton aware.
--- NOTE | 2022-12-04 18:20 | PC.NURSE ---
Pt. medicated per SEP.
[2022-12-04 20:05] VITALS: BP 129/74; PULSE 95; RESP 17; TEMP 37.5; O2SAT 100
[2022-12-04 20:16] LABS: Appearance Urine Clear; Color Urine Yellow; Glucose Urine UA Negative (Negative); Leukocyte Esterase Urine Negative (Negative); Nitrite Urine Negative (Negative); PH 5.5 (5.0-9.0); Urine Blood Negative (Negative); Urine Ketones Negative (Negative); Urine Protein Negative (Neg-Trace)
--- NOTE | 2022-12-04 20:50 | PC.NURSE ---
pt unable to provide stool sample. this rn made kan [place] aware
[2022-12-04 20:51] VITALS: BP 126/64; PULSE 101; RESP 17; TEMP 37.3; O2SAT 94
--- NOTE | 2022-12-04 21:01 | PC.NURSE ---
hardwood sawyer utilized at discharge. iv removed at time of discharge. vss. pt requested scripts be resent to [facility]. pt provided with discharge packet, pt verbalized understanding of discharge plan
== END 2022-12-04 21:04 | disposition home or self-care (01) ==
PROVIDERS: Physician Assistant; Physician Assistant Medical; Emergency Provider Emergency Medicine; PCP Family Medicine
DX: B34.9 Viral infection, unspecified (principal); R11.2 Nausea with vomiting, unspecified; Z20.822 Contact with and (suspected) exposure to COVID-19; Z20.828 Contact with and (suspected) exposure to other viral communicable diseases; Z79.899 Other long term (current) drug therapy
CPT/HCPCS: 0241U; 80053; 81003; 83735; 85025; 85652; 86140; 96360; 96361; 99284

== ENCOUNTER 2022-12-23 06:09 | Outpatient (REF) | payer MEDICAID, SELFPAY | END 2022-12-23 06:10 | disposition home or self-care (01) | LOC: CF 06:09 | PROVIDERS: Visit Provider Internal Medicine | DX: M54.16 Radiculopathy, lumbar region (principal) | CPT/HCPCS: J1100 ==

== ENCOUNTER 2023-07-01 08:45 | Outpatient (REF) | payer MEDICAID, SELFPAY ==
[2023-07-01 12:05] LABS: Estimated Average Glucose 134 mg/dL; Hemoglobin A1c % 6.3 % (<6.0)
[2023-07-01 12:24] LABS: Cholesterol 143 mg/dL (<200); HDL Cholesterol 23 mg/dL (>40); LDL Cholesterol Calculated 83 mg/dL (<100); Triglycerides 185 mg/dL (<150)
[2023-07-01 12:29] LABS: Alanine Aminotransferase 18 U/L (0-31); Albumin Level 4.2 g/dL (3.5-5.0); Alkaline Phosphatase 79 U/L (39-117); Anion Gap 14 (12-20); Aspartate Amino Transferase 22 U/L (5-31); Bilirubin Total 0.2 mg/dL (0.0-1.0); Blood Urea Nitrogen 9 mg/dL (9-16); Calcium 9.5 mg/dL (8.4-10.2); Carbon Dioxide 29 mmol/L (22-29); Chloride 103 mmol/L (96-108); Estimated Glomerular Filt Rate > 60; Glucose Random 69 mg/dL (60-115); Potassium 3.8 mmol/L (3.3-5.1); Sodium 142 mmol/L (135-145); Total Protein 7.8 g/dL (6.5-8.0)
[2023-07-01 12:31] LABS: Creatinine Urine 137.49 mg/dL; Microalbum/Creatinine Ratio Ur 17.4 ug/mg cr (<30)
[2023-07-01 12:33] LABS: Reflex LDLD? No
[2023-07-01 12:39] LABS: Folate 9.6 ng/mL (> or = 4.0); Vitamin B12 312 pg/mL (200-900)
[2023-07-01 12:47] LABS: TSH reflex Free T4 1.87 uIU/mL (0.32-4.0)
== END 2023-07-01 08:46 | disposition home or self-care (01) ==
LOC: HO.HHCL 08:45
PROVIDERS: Visit Provider Family Medicine
DX: E11.65 Type 2 diabetes mellitus with hyperglycemia (principal); E78.2 Mixed hyperlipidemia; F41.0 Panic disorder [episodic paroxysmal anxiety]
CPT/HCPCS: 36415; 80053; 80061; 82043; 82570; 82607; 82746; 83036; 84443

== ENCOUNTER 2023-09-08 09:41 | Outpatient (REF) | payer MEDICAID, SELFPAY ==
--- NOTE | ~2023-09-08 | MM_ITS ---
EXAMINATION: BONE DENSITOMETRY CLINICAL INDICATION: Osteopenia. History of osteoporosis. COMPARISON: Previous BD dated 04/02/2020 and baseline BD dated 12/21/2008. TECHNIQUE: Using a [employer] DXA System (software version: 13.1) manufactured by [employer], dual-energy x-ray absorptiometry was performed of the lumbar spine and left hip. The images are of good technical quality. Summary results are attached. FINDINGS: LEFT FEMUR, NECK: Current: BMD 0.603 g/cm2, Z-score -1.9, T-score -3.1, osteoporosis. Prior: BMD 0.937 g/cm2. Baseline: BMD 0.814 g/cm2. LEFT FEMUR, TOTAL: Current: BMD 0.717 g/cm2, Z-score -1.4, T-score -2.3, osteopenia, 27.9% decrease from previous, 17.3% decrease from baseline (<5% change is not significant). Prior: BMD 0.994 g/cm2. Baseline: BMD 0.867 g/cm2. AP SPINE L1-L4: Current: BMD 1.038 g/cm2, Z-score 0.0, T-score -1.2, osteopenia, 2.2% increase from previous, 31.4% increase from baseline (<5% change is not significant). Prior: BMD 1.016 g/cm2. Baseline: BMD 0.790 g/cm2. IDENTIFIED RISK FACTORS: Early menopause, secondary osteoporosis, bilateral oophorectomy, osteoporosis, current smoker. HISTORY OF FRACTURE: None listed. MEDICATIONS: Calcium supplements or multivitamin, vitamin D. MM/XR DEXA axial skeleton IMPRESSION: 1. DIAGNOSIS: Osteoporosis based on the lowest T-score value of -3.1 in the femoral neck applying World Health Organization criteria. 2. 10-YEAR FRACTURE RISK PREDICTION, FRAX: According to the guidelines, FRAX calculation should only be performed on patients in the osteopenia bone density category. Therefore, FRAX was not performed on this patient. 3. Treatment Recommendations: NOF guidelines recommend consideration for treatment in postmenopausal women and men age 50 and older presenting with the following: -A hip or vertebral (clinical or morphometric) fracture. -T-score less than or equal to -2.5 at the femoral neck or spine after appropriate evaluation to exclude secondary causes. -Low bone mass at the hip or spine and a 10-year fracture probability by FRAX of greater than or equal to 3% for hip fracture or greater than or equal to 20% for major osteoporotic fracture based on the [place] adapted WHO algorithm. 4. Other Recommendations: All treatment decisions require clinical judgment and consideration of individual patient factors, including patient preferences, comorbidities, previous drug use, risk factors not captured in the FRAX model (e.g. frailty, falls, vitamin D deficiency, increased bone turnover, interval significant decline in bone density) and possible under or overestimation of fracture risk by FRAX. Additional medical evaluation for secondary cause of low bone mineral density may be appropriate. FUTURE SCAN RECOMMENDATION: People with diagnosed cases of osteoporosis or at high risk for fracture should have regular bone mineral density tests. For patients eligible for Medicare, routine testing is allowed once every 2 years. The testing frequency can be increased to one year for patients who have rapidly progressing disease, those who are receiving or discontinuing medical therapy to restore bone mass, or have additional risk factors.
== END 2023-09-08 09:42 | disposition home or self-care (01) ==
LOC: HO.MAMMO 09:41
PROVIDERS: PCP Family Medicine; Visit Provider Family Medicine
DX: Z13.820 Encounter for screening for osteoporosis (principal); M85.80 Other specified disorders of bone density and structure, unspecified site; Z78.0 Asymptomatic menopausal state
CPT/HCPCS: 77080

== ENCOUNTER 2023-12-02 08:23 | Outpatient (REF) | payer MEDICAID, SELFPAY ==
--- NOTE | ~2023-12-02 | MM_ITS ---
EXAMINATION: MM SCREENING DIGITAL BREAST TOMOSYNTHESIS, BILATERAL CLINICAL INFORMATION: Screening. Asymptomatic. COMPARISON: Mammography: 11/19/2022, 12/10/2021, and dating back to 11/20/2013. TECHNIQUE: Digital breast tomosynthesis is performed in both the craniocaudal and mediolateral oblique views along with computer-aided detection (CAD). Synthesized 2D images are generated from the tomosynthesis. An extra full-field right MLO view was included for nipple in profile. FINDINGS: There are scattered areas of fibroglandular density (ACR BI-RADS breast composition Category b). There are no suspicious masses, suspicious grouped calcifications, or areas of architectural distortion in either breast. The parenchymal pattern is stable from prior exams. No skin or axillary abnormalities of suspicion. MM/MM tomosynthesis screening BI IMPRESSION: No mammographic evidence of malignancy. ASSESSMENT: BI-RADS BI-RADS 1 - Negative RECOMMENDATION: Routine annual mammography screening. 1 year F/U This examination should not preclude the clinical evaluation of a suspicious palpable abnormality. This patient's information was entered into a reminder system with a target due date for their next mammogram.
== END 2023-12-02 08:24 | disposition home or self-care (01) ==
LOC: HO.MAMMO 08:23
PROVIDERS: PCP Family Medicine; Visit Provider Family Medicine
DX: Z12.31 Encounter for screening mammogram for malignant neoplasm of breast (principal)
CPT/HCPCS: 77063; 77067

== ENCOUNTER → 2023-12-02 08:30 | Outpatient (BNV) | payer MEDICAID, SELFPAY | PROVIDERS: PCP Family Medicine; Visit Provider Radiology Diagnostic Radiology | DX: Z12.31 Encounter for screening mammogram for malignant neoplasm of breast (principal) | CPT/HCPCS: 77063; 77067 ==

== ENCOUNTER 2024-07-13 09:46 | Outpatient (REF) | payer MEDICAID, SELFPAY ==
[2024-07-13 11:58] LABS: Alanine Aminotransferase 17 U/L (0-31); Albumin Level 4.2 g/dL (3.5-5.0); Anion Gap 12 (12-20); Aspartate Amino Transferase 20 U/L (5-31); Bilirubin Total 0.1 mg/dL (0.0-1.0); Blood Urea Nitrogen 15 mg/dL (9-16); Calcium 9.2 mg/dL (8.4-10.2); Carbon Dioxide 29 mmol/L (22-29); Chloride 105 mmol/L (96-108); Cholesterol 141 mg/dL (<200); Estimated Glomerular Filt Rate > 60; Glucose Random 102 mg/dL (60-115); HDL Cholesterol 29 mg/dL (>40); LDL Cholesterol Calculated 55 mg/dL (<100); Potassium 3.5 mmol/L (3.3-5.1); Sodium 142 mmol/L (135-145); Total Protein 7.4 g/dL (6.5-8.0); Triglycerides 286 mg/dL (<150)
[2024-07-13 12:33] LABS: Folate 6.2 ng/mL (> or = 4.0); Vitamin B12 256 pg/mL (200-900)
[2024-07-13 12:37] LABS: Creatinine Urine 39.31 mg/dL; Microalbumin Urine < 5.0 mg/L
[2024-07-13 12:44] LABS: Alkaline Phosphatase 78 U/L (39-117)
[2024-07-13 13:22] LABS: Reflex LDLD? No
== END 2024-07-13 09:47 | disposition home or self-care (01) ==
LOC: HO.HHCL 09:46
PROVIDERS: Visit Provider Family Medicine
DX: I10 Essential (primary) hypertension (principal); E11.42 Type 2 diabetes mellitus with diabetic polyneuropathy; E78.2 Mixed hyperlipidemia
CPT/HCPCS: 36415; 80053; 80061; 82043; 82570; 82607; 82746

== ENCOUNTER 2024-07-27 06:35 | Inpatient (IN) | payer MEDICAID, SELFPAY ==
[2024-07-27] VITALS (10 sets, daily range): BP systolic 105–146; BP diastolic 56–78; PULSE 86–113; RESP 16–24; TEMP 36.2–37.7; O2SAT 88–96; BMI 25.3; BMI 27.4
--- NOTE | ~2024-07-27 | XR_ITS ---
EXAMINATION: XR CHEST CLINICAL INFORMATION: cough, sob COMPARISON: X-ray dated March 18, 2020 TECHNIQUE: 2 views of the chest were obtained. FINDINGS: Prominence of the interstitial lung markings with indistinct margins in the perihilar regions. Pulmonary reticular pattern. No hyperinflation. No pleural effusion or pneumothorax. Cardiomediastinal silhouette demonstrates normal size with a round apex. Multilevel thoracic and upper lumbar spondylosis. Degenerative changes in the right acromioclavicular joint. XR/XR chest 2V IMPRESSION: Mild interstitial edema in the correct clinical settings. Superimposed acute inflammatory versus infectious processes cannot be excluded. Electronically signed by: Markus Cook MD 07/27/2024 07:56 AM EST
[2024-07-27 07:51] LABS: MANUAL DIFF FLAG NO
[2024-07-27 07:52] LABS: Basophils Percent Auto 0.4 % (0-2); Eosinophils Percent Auto 0.1 % (0-4); Hematocrit 32.2 % (37.0-47.0); Hemoglobin 10.1 g/dl (12.0-16.0); Imm Gran Abs Auto 0.03 X10*3/uL (0.00-0.03); Imm Gran Pct Auto 0.4 % (0.0-0.4); Lymphocytes Absolute Auto 0.4 X10*3/uL (1.2-4.9); Mean Corpuscular HGB Conc 31.4 g/dl (31.0-35.0); Mean Corpuscular Hemoglobin 25.6 pg (27.0-33.0); Mean Corpuscular Volume 81.5 fL (80.0-98.0); Mean Platelet Volume 10.5 fL (9.4-12.3); Monocytes Absolute Auto 0.5 X10*3/uL (0.1-1.2); Monocytes Percent Auto 7.1 % (2-11); Neutrophils Absolute Auto 6.3 x10*3/uL (2.0-8.3); Platelet Count 276 X10*3/uL (160-400); Red Blood Count 3.95 X10*6/uL (4.20-5.50); Red Cell Distribution Width 15.4 % (11.0-16.0); White Blood Count 7.3 X10*3/uL (4.8-10.8)
[2024-07-27 08:05] LABS: Alanine Aminotransferase 35 U/L (0-31); Albumin Level 4.3 g/dL (3.5-5.0); Alkaline Phosphatase 83 U/L (39-117); Anion Gap 12 (12-20); Aspartate Amino Transferase 56 U/L (5-31); Bilirubin Total 0.2 mg/dL (0.0-1.0); Blood Urea Nitrogen 7 mg/dL (9-16); Calcium 8.8 mg/dL (8.4-10.2); Carbon Dioxide 27 mmol/L (22-29); Chloride 108 mmol/L (96-108); Creatinine Clr Calc Pharmacy 73.4; Estimated Glomerular Filt Rate > 60; Glucose Random 95 mg/dL (60-115); Potassium 3.5 mmol/L (3.3-5.1); Sodium 143 mmol/L (135-145); Total Protein 7.5 g/dL (6.5-8.0)
[2024-07-27 08:29] LABS: Influenza A PCR POSITIVE (Negative); Influenza B PCR NEGATIVE (Negative); Resp Syncy Virus RNA Qual PCR NEGATIVE (Negative); SARS COV2 PCR INHOUSE NEGATIVE (Negative)
--- NOTE | 2024-07-27 10:36 | ED.URI ---
HPI - URI/Sore Throat General Chief Complaint: Upper Respiratory Symptoms Stated Complaint: diff breathing Time Seen by Provider: 07/27/24 11:21 Source: patient, old records reviewed and paraprofessional interpreter Mode of arrival: ambulatory Limitations: no limitations History of Present Illness ED Provider: Halle Griffin PA-C HPI Narrative: This is a 64-year-old female, with a history of asthma, type 2 diabetes and fibromyalgia, who presents emergency department with complaints of dry cough, shortness of breath, body aches, congestion, and headaches which started yesterday. Patient reports that she has been taking [id number] Tylenol which has provided her with minimal relief. Denies any sick contacts. She denies any chest pain. She does endorse some shortness of breath. She denies being on oxygen in the past. She reports that she does have a nebulizer at home however does report that the nebulizer is broken and therefore has not been able to perform updrafts as often as she would like. She does endorse subjective fevers and chills, body aches, and fatigue. No other complaints or concerns at this time. MD elicited complaint: fever (subjective), cough and nasal congestion Pertinent past history: asthma Onset (ago): day(s) Consistency: constant Severity: moderate Able to tolerate fluids by mouth: Yes Exacerbating factors: nothing Relieving factors: NSAID and OTC cold medicine Context: sick contacts Associated symptoms: fever (Subjective), chills, rhinorrhea, nasal congestion, cough and shortness of breath Treatments prior to arrival: none Related Data Home Medications ?Medication ?Instructions ?Recorded ?Confirmed albuterol sulfate 2.5 mg/3 mL 1 amp inhalation QID PRN dyspnea 03/20/21 11/10/22 (0.083 %) solution for nebulization albuterol sulfate 90 mcg/actuation 2 puff PO Q4-6H PRN dyspnea 03/20/21 11/10/22 aerosol inhaler (ProAir HFA) aspirin 81 mg tablet,delayed 1 tab PO QAM 03/20/21 11/10/22 release cholecalciferol (vitamin D3) 25 1 tab PO QAM 03/20/21 11/10/22 mcg (1,000 unit) tablet fluticasone propionate 110 2 puff inhalation BID 03/20/21 11/10/22 mcg/actuation HFA aerosol inhaler (Flovent HFA) metformin 500 mg tablet,extended 2 tab PO BID 03/20/21 11/10/22 release 24 hr multivitamin 1 tab PO QAM 03/20/21 11/10/22 omeprazole 20 mg capsule,delayed 1 cap PO QAM 03/20/21 11/10/22 release simvastatin 40 mg tablet 1 tab PO BEDTIME 03/20/21 11/10/22 zolpidem 10 mg tablet 0.5 - 1 tab PO BEDTIME PRN insomnia 03/20/21 11/10/22 lorazepam 1 mg tablet 1 mg PO BID PRN Anxiety 10/22/21 11/10/22 lamotrigine 25 mg tablet 50 mg PO QPM 11/17/21 11/10/22 glipizide 5 mg tablet 5 mg PO DAILY diabetes 09/01/22 11/10/22 fluoxetine 40 mg capsule 40 mg PO QAM 09/24/22 11/10/22 hydrochlorothiazide 25 mg tablet 25 mg PO QAM 09/24/22 11/10/22 lisinopril 2.5 mg tablet 2.5 mg PO QPM 09/24/22 11/10/22 pregabalin 150 mg capsule 150 mg PO BID pain 09/24/22 11/10/22 quetiapine 100 mg tablet 100 mg PO BEDTIME 09/24/22 11/10/22 tizanidine 4 mg tablet 4 mg PO BID PRN muscle spasticity 09/24/22 11/10/22 Previous Rx's ?Medication ?Instructions ?Recorded lidocaine 5 % topical patch 1 patch topical DAILY PRN pain #30 10/08/21 (Lidoderm) ea loperamide 2 mg capsule 2 mg PO Q6H PRN loose stool #30 12/04/22 (Anti-Diarrheal (loperamide)) caps ondansetron 4 mg disintegrating 4 mg PO Q6H PRN nausea and 12/04/22 tablet vomiting #14 tabs nabumetone 750 mg tablet 750 mg PO BID PRN for pain 30 days 12/10/22 #60 tabs Allergies Allergy/AdvReac Type Severity Reaction Status Date / Time No Known Allergies Allergy Verified 07/27/24 06:47 [No Known Allergies*] Review of Systems Review of Systems: Yes all other systems are reviewed and are negative Constitutional: Constitutional: Reports as per [facility] Past Medical History Medical History Asthma Diabetes Fibromyalgia History of adenomatous polyp of colon History of adenomatous polyp of colon HTN (hypertension) Hyperlipemia Low back pain Osteoporosis Surgical History H/O colonoscopy History of carpal tunnel release History of excision of lesion History of hysterectomy with bilateral oophorectomy Family History Family History Sister Lung cancer Social History Social History Alcohol intake: never Patient Tobacco Use Status: Tobacco use Unknown Tobacco use type: Cigarette Cigarettes Per Day: 6 Advance Directives: No Advance Directives Information Provided: Yes Do you have a plan to hurt others: No Plan Physical Exam Vital Signs: Vital Signs: Last Vital Signs Temp 99.9 F 07/27/24 11:42 Pulse 94 07/27/24 12:20 Resp 18 07/27/24 12:20 BP 146/76 H 07/27/24 11:42 Pulse Ox 88 L 07/27/24 11:42 O2 Del Method Room Air 07/27/24 11:42 BMI result Body Mass Index 25.3 Const: General: cooperative, comfortable and no acute distress Orientation/consciousness: patient oriented x3 Limitations: no limitations HEENT: Head: Yes normal to inspection, Yes normocephalic and Yes atraumatic Ears: hearing grossly normal bilaterally General nose exam: Normal external nose present Face and sinus: Yes normal facial exam Mouth: Normal oral and palatal mucosa present, oropharynx normal and moist mucous membranes Throat: Yes posterior oropharynx normal Eyes: General: appearance normal, both eyes and all related structures Eyelids: Yes eyelids normal Conjunctivae: conjunctivae normal Sclerae: sclerae normal Pupils: Equal, round and reactive pupils present EOM: EOMs intact bilaterally Neck: Neck: Yes normal visual inspection, Yes full ROM and Yes no lymphadenopathy Lymphatic: no lymphadenopathy noted Chest: Chest palpation & inspection: normal inspection of the chest Resp: Other: Diminished lung sounds throughout all lung donovan. Frequent dry cough auscultated during examination. Effort & Inspection: normal respiratory effort and able to speak in complete sentences Cardio: Rate: regular rate Rhythm: regular rhythm Heart sounds: S1 normal heart sound present and S2 normal heart sound present GI: Inspection: Yes normal to inspection Skin: General skin exam: no rashes or lesions noted Trauma: no lacerations or abrasions Wounds: no wounds Neuro: General: patient oriented x3 and moves all extremities Cranial nerves: Yes Equal, round and reactive pupils present Extrem: Other: No peripheral edema, no calf tenderness. General: Yes normal to inspection Right upper extremity: normal to inspection Left upper extremity: normal to inspection Right lower extremity: normal to inspection Left lower extremity: normal to inspection Course Course Course Narrative: 64 yo female with PMH of fibromyalgia, DM2, here with c/o headache and not feeling well with body aches, no n/v/d, coughing is hard and it hurts here. At this time basic labs, CXR, and flu. In the window for tamiflu this is a RAPID medical screening exam the rest of the history and physical exam is to be done by the main provider. Medications Administered Discontinued Medications Generic Name Dose Route Start Last Admin Trade Name Howie PRN Reason Stop Dose Admin Acetaminophen 650 mg 07/27/24 10:31 07/27/24 10:37 Acetaminophen 325 Mg Tablet PO 07/27/24 10:32 650 mg ONCE ONE Administration Albuterol Sulfate 2.5 mg/ 0 mg 07/27/24 12:16 07/27/24 12:21 Albuterol/Ipratropium 3 ml INHALE 07/27/24 12:17 5 dose ONCE ONE Administration Methylprednisolone Sodium Succinate 60 mg 07/27/24 11:55 07/27/24 13:04 Methylprednisolone Sod Succ 125 Mg/2 Ml Vial IVPUSH 07/27/24 11:56 60 mg ONCE ONE Administration Oseltamivir Phosphate 75 mg 07/27/24 11:55 07/27/24 12:50 Oseltamivir Phosphate 75 Mg Capsule PO 07/27/24 11:56 75 mg ONCE ONE Administration Medical Decision Making Medical Decision Making [facility] Narrative: This is a 64-year-old female, with a history of type 2 diabetes, fibromyalgia, osteoporosis, who presents emergency department with concerns for cough, body aches, shortness of breath, since yesterday. Patient arrived at 6:45 a.m. this morning, pulse 113, oxygen saturation 93% on room air, blood pressure 140/78. Repeat vitals were performed when she returned to a room, and I evaluated patient, patient hypoxic at 88% on room air, temperature 99.9?, respirations 24, pulse 103, and blood pressure 146/76. Lungs are diminished throughout. Labs were obtained prior to my assessment, she has no leukocytosis, H&H revealing a normocytic anemia at 10.1/32.2, chemistry revealing no electrolyte derangement, slight elevation in AST and ALT likely viral. Troponin 7.5, will repeat. BNP 38. Patient did test positive for flu A. Chest x-ray revealing mild interstitial edema in the correct clinical setting, superimposed acute inflammatory versus infectious process could not be excluded. Given hypoxia, patient needs to be admitted for further management of her symptoms. Lactic, blood cultures also ordered. Infection is not suspected at this time. Will administer Solu-Medrol 60 mg IV, ED bronch protocol, lactic, blood cultures also ordered. We will continue to closely monitor. She was placed on 2 L nasal cannula. >>discussed with hospitalist at 1208, transfer of care initiated. Differential Diagnosis Differential Diagnoses: The differential diagnosis associated with the presentation includes Pneumonia, RSV, flu Admission/Observation Consideration of admission/observation: Escalation of care including admission/observation considered Patient oxygen saturation 88% on room air while resting comfortably, patient meets admission criteria. Consult Healthcare Provider Management of the patient was discussed with: Hospitalist Lab Data [facility] Lab Attestation statement: I reviewed the patient's lab results. See MDM 07/27/24 07:46 07/27/24 07:46 Labs: Lab Results 07/27/24 07/27/24 Range/Units 07:46 12:14 WBC 7.3 (4.8-10.8) X10*3/uL RBC 3.95 L (4.20-5.50) X10*6/uL Hgb 10.1 L (12.0-16.0) g/dl Hct 32.2 L (37.0-47.0) % MCV 81.5 (80.0-98.0) fL MCH 25.6 L (27.0-33.0) pg MCHC 31.4 (31.0-35.0) g/dl RDW 15.4 (11.0-16.0) % Plt Count 276 D (160-400) X10*3/uL MPV 10.5 (9.4-12.3) fL Immature Gran % (Auto) 0.4 (0.0-0.4) % Neut % (Auto) 86.0 H (45-73) % Lymph % (Auto) 6.0 L (20-40) % [place] % (Auto) 7.1 (2-11) % Eos % (Auto) 0.1 (0-4) % Baso % (Auto) 0.4 (0-2) % Lymph # (Auto) 0.4 L (1.2-4.9) X10*3/uL [place] # (Auto) 0.5 (0.1-1.2) X10*3/uL Eos # (Auto) 0.0 (0.0-0.4) X10*3/uL Baso # (Auto) 0.0 (0.0-0.2) X10*3/uL Abs Immat Gran (auto) 0.03 (0.00-0.03) X10*3/uL Absolute Neuts (auto) 6.3 (2.0-8.3) x10*3/uL Absolute Nucleated RBC 0.000 (0.0-0.012) X10*3/uL Nucleated RBC % (auto) 0.0 (0.0-0.2) /100WBC Sodium 143 (135-145) mmol/L Potassium 3.5 (3.3-5.1) mmol/L Chloride 108 (96-108) mmol/L Carbon Dioxide 27 (22-29) mmol/L Anion Gap 12 (12-20) BUN 7 L (9-16) mg/dL Creatinine 0.72 (0.5-1.4) mg/dL Estim Creat Clear Calc 73.4 Estimated GFR > 60 Random Glucose 95 (60-115) mg/dL Lactic Acid 1.6 (0.5-2.0) mmol/L Calcium 8.8 (8.4-10.2) mg/dL Total Bilirubin 0.2 (0.0-1.0) mg/dL AST 56 H (5-31) U/L ALT 35 H (0-31) U/L Alkaline Phosphatase 83 (39-117) U/L Troponin I High Sens 7.5 6.3 (<3.5-17.0) ng/L B-Natriuretic Peptide 38 (<100) pg/mL Total Protein 7.5 (6.5-8.0) g/dL Albumin 4.3 (3.5-5.0) g/dL Influenza Type A (PCR) POSITIVE A (Negative) Influenza Type B (PCR) NEGATIVE (Negative) RSV RNA Qual (PCR) NEGATIVE (Negative) SARS-CoV-2 RNA (RT-PCR) NEGATIVE (Negative) Independent Interpretation I performed an independent interpretation of an: EKG Interpretation: Sinus tachycardia at 109 beats per minute, no ST elevation or depression. No change from previous EKG when compared to EKG on file from December 23, 2015 Radiology Impression Discussion of test interpretation with radiology: I have reviewed the radiologist's reading. Radiologist Impression: [address] [address] XRay Report Signed Patient: Lisa De La Cruz MR#: [id number] : 1960 Acct:[id number] Age/Sex: 64 / F ADM Date: 07/27/24 Loc: .ED Attending Dr: Ordering Physician: Generic ED Physician Date of Service: 07/27/24 Procedure(s): XR chest 2V Accession Number(s): [id number] cc: Generic ED Physician; Kiara Resendez MD~ EXAMINATION: XR CHEST CLINICAL INFORMATION: cough, sob COMPARISON: X-ray dated March 18, 2020 TECHNIQUE: 2 views of the chest were obtained. FINDINGS: Prominence of the interstitial lung markings with indistinct margins in the perihilar regions. Pulmonary reticular pattern. No hyperinflation. No pleural effusion or pneumothorax. Cardiomediastinal silhouette demonstrates normal size with a round apex. Multilevel thoracic and upper lumbar spondylosis. Degenerative changes in the right acromioclavicular joint. XR/XR chest 2V IMPRESSION: Mild interstitial edema in the correct clinical settings. Superimposed acute inflammatory versus infectious processes cannot be excluded. Electronically signed by: Markus Cook MD 07/27/2024 07:56 AM EST Dictated By: Markus Monson MD Chronic Conditions Patient?s care impacted by: Diabetes and Other (Asthma) Discharge Plan Discharge Clinical Impression: Influenza A, Hypoxia Patient Disposition: Still a Patient
[2024-07-27] MEDS: Acetaminophen 325 MG TABLET 650 MG PO ×3 (10:37→20:08)
[2024-07-27 11:21] LABS: Troponin-I High Sensitivity 7.5 ng/L (<3.5-17.0)
[2024-07-27 11:25] LABS: B Type Natriuretic Peptide 38 pg/mL (<100)
--- NOTE | 2024-07-27 12:03 | ECG_ITS ---
Test Reason : SOB Blood Pressure : */* mmHG Vent. Rate : 109 BPM Atrial Rate : 109 BPM P-R Int : 140 ms QRS Dur : 108 ms QT Int : 344 ms P-R-T Axes : 35 80 60 degrees QTcB Int : 463 ms Sinus tachycardia Otherwise normal ECG When compared with ECG of 23-Dec-2015 16:58, No significant change was found Referred By: Halle Griffin Electronically Signed By: CAYLA MARSHALL
[2024-07-27] MEDS: Albuterol Sulfate 2.5 MG, Albuterol/Iprat 2.5/0.5MG 3 ML 3 ML INHALE (12:21)
[2024-07-27 12:43] LABS: Lactic Acid 1.6 mmol/L (0.5-2.0)
[2024-07-27 12:47] LABS: Troponin-I High Sensitivity 6.3 ng/L (<3.5-17.0)
[2024-07-27] MEDS: Oseltamivir Phosphate 75 MG CAPSULE PO ×2 (12:50→23:08)
[2024-07-27] MEDS: methylPREDNISolone Sod Succ 125 MG/2 ML VIAL 60 MG IVPUSH (13:04)
[2024-07-27] MEDS: Loratadine 10 MG TABLET PO (14:02)
[2024-07-27 14:24] LABS: Glucose, Whole Blood 132 mg/dL (60-115)
--- NOTE | 2024-07-27 15:36 | PM.IMHP ---
History of Present Illness Date of Service: 07/27/24 Attending physician on admission: Latisha Alegria Chief Complaint: hypoxia and influenza A 64y/o F with pmhx of asthma, type 2 diabetes and fibromyalgia, current smoker came with c/o of dry cough, shortness of breath, body aches, congestion, and headaches ( 1day duration). She does endorse some shortness of breath. She denies being on oxygen in the past. She reports that she does have a nebulizer at home however does report that the nebulizer is broken and therefore has not been able to perform updrafts . she tried Tylenol which has provided her with minimal relief. she does endorse subjective fevers and chills, body aches, and fatigue. her sats were in 88% and hweezing in ed reuired oxygen . No leukocytosis, BMP fine,cxr:Mild interstitial edema in the correct clinical settings. Superimposed acute inflammatory versus infectious processes cannot be excluded. Denies any sick contacts. She denies any chest pain. in ed : received nebs,steriods ,tamiflu-reuested admission for acute hypoxemic respiratory failure/asthma excerebation and influenza A. Review of Systems Review of Systems: as above. Yes all other systems are reviewed and are negative [facility] Medical History History of adenomatous polyp of colon Low back pain Asthma History of adenomatous polyp of colon Hyperlipemia Osteoporosis Fibromyalgia Diabetes HTN (hypertension) Family History Sister Lung cancer Surgical History History of excision of lesion History of hysterectomy with bilateral oophorectomy History of carpal tunnel release H/O colonoscopy Social History Alcohol intake: never Patient Tobacco Use Status: Tobacco use Unknown Tobacco use type: Cigarette Cigarettes Per Day: 6 Smoked in Last 30 Days: Yes Use of substances other than those prescribed or required for medical reasons: No Advance Directives: No Advance Directives Information Provided: Yes Do you have a plan to hurt others: No Plan Patient : No Meds Allergies Allergy/AdvReac Type Severity Reaction Status Date / Time No Known Allergies Allergy Verified 07/27/24 06:47 [No Known Allergies*] Active Medications: Current Medications Acetaminophen (Acetaminophen 325 Mg Tablet) 650 mg PO Q6H PRN PRN Reason: Pain, Mild 1-3,fever,headache Last Admin: 07/27/24 14:03 Dose: 650 mg Albuterol/Ipratropium (Albuterol/Iprat 2.5/0.5mg 3 Ml Ampul.Neb) 3 ml INHALE RQ4H [facility] Calcium Carbonate (Calcium Carbonate 750 Mg Tab.Chew) 750 mg PO Q4H PRN PRN Reason: Heartburn Glucose (Glucose Gel 15 Gm Gel..Gram.) 15 gm PO Q15M PRN; Protocol PRN Reason: per Hypoglycemia Standing Ord. Dextrose (D10) 250 mls @ 750 mls/hr IV Q15M PRN; Protocol PRN Reason: per Hypoglycemia Standing Ord. Insulin Human Lispro (Insulin Lispro 100 Unit/Ml 3 Ml Vial) 0 unit SUBCUT QIDACHS [facility]; Protocol Loratadine (Loratadine 10 Mg Tablet) 10 mg PO DAILY [facility] Last Admin: 07/27/24 14:02 Dose: 10 mg Magnesium Hydroxide (Milk Of Magnesia 30 Ml Oral.Susp) 30 ml PO DAILY PRN PRN Reason: Constipation Melatonin (Melatonin 3 Mg Tablet) 6 mg PO BEDTIME PRN PRN Reason: Insomnia Methylprednisolone Sodium Succinate (Methylprednisolone Sod Succ 40 Mg/Ml Vial) 40 mg IVPUSH BID [facility] Sodium Chloride (0.9 % Sodium Chloride Flush 3 Ml Syringe) 3 ml IVFLUSH QSHIFT [facility] Home Medications ?Medication ?Instructions ?Recorded ?Confirmed ?Last Taken ?Type albuterol sulfate 2.5 mg/3 mL 1 amp inhalation QID PRN dyspnea 03/20/21 11/10/22 Unknown History (0.083 %) solution for nebulization albuterol sulfate 90 mcg/actuation 2 puff PO Q4-6H PRN dyspnea 03/20/21 11/10/22 Unknown History aerosol inhaler (ProAir HFA) aspirin 81 mg tablet,delayed 1 tab PO QAM 03/20/21 11/10/22 Unknown History release cholecalciferol (vitamin D3) 25 1 tab PO QAM 03/20/21 11/10/22 Unknown History mcg (1,000 unit) tablet fluticasone propionate 110 2 puff inhalation BID 03/20/21 11/10/22 Unknown History mcg/actuation HFA aerosol inhaler (Flovent HFA) metformin 500 mg tablet,extended 2 tab PO BID 03/20/21 11/10/22 Unknown History release 24 hr multivitamin 1 tab PO QAM 03/20/21 11/10/22 Unknown History omeprazole 20 mg capsule,delayed 1 cap PO QAM 03/20/21 11/10/22 Unknown History release simvastatin 40 mg tablet 1 tab PO BEDTIME 03/20/21 11/10/22 Unknown History zolpidem 10 mg tablet 0.5 - 1 tab PO BEDTIME PRN insomnia 03/20/21 11/10/22 Unknown History lorazepam 1 mg tablet 1 mg PO BID PRN Anxiety 10/22/21 11/10/22 Unknown History lamotrigine 25 mg tablet 50 mg PO QPM 11/17/21 11/10/22 Unknown History glipizide 5 mg tablet 5 mg PO DAILY diabetes 09/01/22 11/10/22 Unknown History fluoxetine 40 mg capsule 40 mg PO QAM 09/24/22 11/10/22 Unknown History hydrochlorothiazide 25 mg tablet 25 mg PO QAM 09/24/22 11/10/22 Unknown History lisinopril 2.5 mg tablet 2.5 mg PO QPM 09/24/22 11/10/22 Unknown History pregabalin 150 mg capsule 150 mg PO BID pain 09/24/22 11/10/22 Unknown History quetiapine 100 mg tablet 100 mg PO BEDTIME 09/24/22 11/10/22 Unknown History tizanidine 4 mg tablet 4 mg PO BID PRN muscle spasticity 09/24/22 11/10/22 Unknown History acetaminophen 650 mg 650 mg PO Q8H PRN mild pain 07/27/24 Unknown History tablet,extended release alendronate 70 mg tablet 70 mg PO QWEEK 07/27/24 Unknown History amoxicillin 500 mg capsule 500 mg PO Q8H 07/27/24 Unknown History calcium 600 mg (as 1 tab PO BID 07/27/24 Unknown History carbonate)-vitamin D3 10 mcg (400 unit) tablet cyclobenzaprine 10 mg tablet 10 mg PO BID PRN muscle spasm 07/27/24 Unknown History dulaglutide 0.75 mg/0.5 mL mg subcut QWEEK 07/27/24 Unknown History subcutaneous pen injector (Trulicity) ibuprofen 800 mg tablet 800 mg PO TID 07/27/24 Unknown History loratadine 10 mg tablet 10 mg PO DAILY 07/27/24 Unknown History mometasone 100 mcg/actuation HFA 2 puff inhalation BID 07/27/24 Unknown History aerosol inhaler (Asmanex HFA) nicotine 7 mg/24 hr daily 1 patch topical QAM 07/27/24 Unknown History transdermal patch quetiapine 50 mg tablet 50 mg PO BID 07/27/24 Unknown History rosuvastatin 20 mg tablet 20 mg PO QAM 07/27/24 Unknown History sertraline 50 mg tablet 50 mg PO QAM 07/27/24 Unknown History Physical Exam Vital Signs and Narrative: Vital Signs: Last Vital Signs Temp 97.1 F 07/27/24 15:15 Pulse 91 07/27/24 15:15 Resp 18 07/27/24 15:15 BP 129/64 07/27/24 15:15 Pulse Ox 94 07/27/24 15:15 O2 Del Method Nasal Cannula 07/27/24 15:15 O2 Flow Rate 2 07/27/24 15:15 Oxygen Flow Rate 2 07/27/24 14:11 BMI result Body Mass Index 25.3 Appearance: Alert.? Oriented X3.?some sob.? Eyes: Pupils equal, round and reactive to light.? Sclera nonicteric.? ENT: Pharynx normal.? Moist mucous membranes. cvs: rrr, [id number]. res:air entry dimished ,has b/l exp wheezing abd: no rebound or guarding ,nt, bs present. ext pulses present , no cyanosis . neuro: axo3 , nonfocal. Results Labs 07/27/24 07:46 07/27/24 07:46 Labs: Laboratory Results - last 24 hr 07/27/24 07/27/24 07/27/24 07:46 12:14 14:20 MCV 81.5 MCH 25.6 L MCHC 31.4 RDW 15.4 Plt Count 276 D MPV 10.5 Immature Gran % (Auto) 0.4 Neut % (Auto) 86.0 H Lymph % (Auto) 6.0 L [place] % (Auto) 7.1 Eos % (Auto) 0.1 Baso % (Auto) 0.4 Lymph # (Auto) 0.4 L [place] # (Auto) 0.5 Eos # (Auto) 0.0 Baso # (Auto) 0.0 Abs Immat Gran (auto) 0.03 Absolute Neuts (auto) 6.3 Absolute Nucleated RBC 0.000 Nucleated RBC % (auto) 0.0 Anion Gap 12 Estim Creat Clear Calc 73.4 Estimated GFR > 60 POC Glucose 132 H Random Glucose 95 Lactic Acid 1.6 Calcium 8.8 Total Bilirubin 0.2 AST 56 H ALT 35 H Alkaline Phosphatase 83 Troponin I High Sens 7.5 6.3 B-Natriuretic Peptide 38 Total Protein 7.5 Albumin 4.3 Influenza Type A (PCR) POSITIVE A Influenza Type B (PCR) NEGATIVE RSV RNA Qual (PCR) NEGATIVE SARS-CoV-2 RNA (RT-PCR) NEGATIVE Imaging Radiologist's Impressions: Impressions Chest X-Ray 07/27/24 07:45 IMPRESSION: Mild interstitial edema in the correct clinical settings. Superimposed acute inflammatory versus infectious processes cannot be excluded. Electronically signed by: Markus Cook MD 07/27/2024 07:56 AM [facility] Assessment and Plan (1) Hypoxia: Status: Acute (2) Influenza A: Status: Acute Plan 64y/o F with pmhx of asthma, type 2 diabetes and fibromyalgia, current smoker came with c/o of dry cough, shortness of breath, body aches, congestion, and headaches ( 1day duration). She does endorse some shortness of breath. acute hypoxemic respiratory failure/asthma excerebation(mild intermittent) and influenza A . possible viral pneumonia componenet on cxr blood cultures pending continue oxygen ,loratidine ,cough med, solumedrole, nebs ,tamiflu. DM: moniter fs with coverage. HTN (hypertension): start htn meds once med reconcillation done. Hyperlipemia: statin once reconcilled active smoker : strongly advised to abstain from smoking continue nicotein patch. Other the meds will continue once reconciled. dvt prophylax: s/c lovenox. patient likely benefit from 2 midnight stays-acute hypoxemic respiratory failure/asthma excerebation(mild intermittent) and influenza A-need oxygen weaning ,nebs,steriods . Above management discussed with the patient in detail length with lockstitch shoulder joiner -she understand and in agreement with the above plan, time spent 70 minutes and patient is full code. Quality Stroke Does the patient have a stroke diagnosis?: No VTE Prior VTE?: No VTE Risk Level:: Medical - moderate - high VTE Device Contraindication: N/A - Device Ordered VTE Drug Contraindication: N/A - Med Ordered
[2024-07-27] MEDS: Albuterol/Iprat 2.5/0.5MG 3 ML AMPUL.NEB INHALE ×2 (15:37→19:04)
[2024-07-27 16:08] LABS: Glucose, Whole Blood 154 mg/dL (60-115)
[2024-07-27] MEDS: Insulin Lispro 100 UNIT/ML 3 ML VIAL SUBCUT ×2 (16:20→20:08)
[2024-07-27] MEDS: 0.9 % Sodium Chloride Flush 3 ML SYRINGE IVFLUSH ×2 (16:20→23:07)
--- NOTE | 2024-07-27 16:43 | PC.NURSE ---
Pt agrees to safety contract, Independent at baseline with ADLs will ring for staff for assistance if needed. Make LOW FALL RISK.
--- NOTE | 2024-07-27 19:36 | PHA.MEDREC ---
Addendum entered by Damaris Mcginnis [facility] 07/27/24 20:12: reviewed by [facility]. Took fluoxetine off as patient has no claims for it in the past year. Original Note: Pharmacy Consult ? Medication Reconciliation Pharmacy has completed the medication reconciliation. Spoke with patient with help from drywall taper and she was able to confirm her medications. She confirmed her Alendronate 70mg tab once a week and confirmed she takes it on Tuesdays and states she took it this past Tuesday 07/25. She also confirmed she is still taking the Amoxicillin 500mg regimen and states she has 4 days left of that and was not able to take that medication today. She also confirmed her Trulicity 0.75 mg/0.5 mL injection once a week and confirmed she takes that on Saturdays and did that this past Sunday 07/23. She stated she is taking her Fluoxetine 40mg capsule daily as needed for her mood, I double checked that with her and told her the name brand is Proscaz and if she was sure if she was doing it as needed and she confirmed still she has some at home that she uses as needed. She confirmed she is taking the Pregabalin 100mg tab 1 tab twice daily for pain. She also states she is taking the Quetiapine 50mg tab and confirmed she takes 2 tablets at bedtime for sleep and she states since taking it 2 at bedtime its been helping more. She confirmed she was not able to take any medications today due to how she was feeling but states she took everything else yesterday.
[2024-07-27 19:41] LABS: Glucose, Whole Blood 181 mg/dL (60-115)
[2024-07-27] MEDS: Melatonin 3 MG TABLET 6 MG PO (20:07)
[2024-07-27] MEDS: guaiFENesin 200 MG/10 ML 10 ML LIQUID PO (20:16)
[2024-07-27] MEDS: Ibuprofen 600 MG TABLET PO (21:56)
[2024-07-27] MEDS: methylPREDNISolone Sod Succ 40 MG/ML VIAL IVPUSH (23:07)
[2024-07-28] MEDS: guaiFENesin 200 MG/10 ML 10 ML LIQUID PO (01:44)
[2024-07-28 04:00] VITALS: BP 138/65; PULSE 65; RESP 18; TEMP 36.5; O2SAT 96
--- NOTE | 2024-07-28 04:53 | PC.NURSE ---
Med tele monitor observer notified this RN that patient went into a junctional rhythm for about 2 minutes and that patient also has frequent one to two second pauses[address] Dr[address] Clifton made aware via [facility].
[2024-07-28 07:14] VITALS: BP 131/79; PULSE 78; RESP 16; TEMP 36.1; O2SAT 93
[2024-07-28 07:20] LABS: Glucose, Whole Blood 274 mg/dL (60-115)
[2024-07-28] MEDS: Insulin Lispro 100 UNIT/ML 3 ML VIAL SUBCUT (07:54)
[2024-07-28] MEDS: Loratadine 10 MG TABLET PO (07:54)
[2024-07-28] MEDS: Albuterol/Iprat 2.5/0.5MG 3 ML AMPUL.NEB INHALE ×2 (07:55→11:13)
[2024-07-28 08:01] VITALS: PULSE 77; RESP 18; O2SAT 91
[2024-07-28] MEDS: lisinopriL 2.5 MG TABLET PO (08:04)
[2024-07-28] MEDS: Multivitamin TABLET 1 TAB PO (08:04)
[2024-07-28] MEDS: 0.9 % Sodium Chloride Flush 3 ML SYRINGE IVFLUSH (08:04)
[2024-07-28] MEDS: Aspirin Enteric Coated 81 MG TABLET.DR PO (08:04)
[2024-07-28] MEDS: glipiZIDE 5 MG TABLET PO (08:04)
[2024-07-28] MEDS: Cholecalciferol (Vitamin D3) 25 MCG TABLET PO (08:04)
[2024-07-28] MEDS: hydroCHLOROthiazide 25 MG TABLET PO (08:04)
[2024-07-28] MEDS: predniSONE 20 MG TABLET 40 MG PO (08:04)
[2024-07-28] MEDS: Pregabalin 100 MG CAPSULE PO (08:04)
[2024-07-28] MEDS: Atorvastatin Calcium 80 MG TABLET PO (08:10)
[2024-07-28] MEDS: Sertraline HCL 50 MG TABLET PO (08:10)
[2024-07-28 08:39] VITALS: PULSE 77; O2SAT 92
[2024-07-28] MEDS: Acetaminophen 325 MG TABLET 975 MG PO (08:48)
--- NOTE | 2024-07-28 10:54 | P.DS_ITS ---
DS: Providers Provider Date of Service: 07/28/24 Date of admission: 07/27/24 13:05 Date of discharge: 07/28/24 Primary care physician: Kiara Resendez MD Attending physician on discharge: Latisha Alegria Discharging clinician: Latisha Alegria DS: Diagnosis Discharge Diagnosis (1) Hypoxia: Status: Acute (2) Influenza A: Status: Acute DS: Summary Hospital Course Hospital Course: HPI: 64y/o F with pmhx of asthma, type 2 diabetes and fibromyalgia, current smoker came with c/o of dry cough, shortness of breath, body aches, congestion, and headaches ( 1day duration). She does endorse some shortness of breath. She denies being on oxygen in the past. She reports that she does have a nebulizer at home however does report that the nebulizer is broken and therefore has not been able to perform updrafts . she tried Tylenol which has provided her with minimal relief. she does endorse subjective fevers and chills, body aches, and fatigue. her sats were in 88% and hweezing in ed reuired oxygen . No leukocytosis, BMP fine,cxr:Mild interstitial edema in the correct clinical settings. Superimposed acute inflammatory versus infectious processes cannot be excluded. Denies any sick contacts. She denies any chest pain. in ed : received nebs,steriods ,tamiflu-reuested admission for acute hypoxemic respiratory failure/asthma excerebation and influenza A. Hospital course: 64y/o F with pmhx of asthma, type 2 diabetes and fibromyalgia, current smoker came with c/o of dry cough, shortness of breath, body aches, congestion, and headaches ( 1day duration). She does endorse some shortness of breath-admitted for acute hypoxemic respiratory failure/asthma excerebation(mild intermittent) and influenza A: started on nebs ,steriods ,oxygen ,tamiflu ,loratidine ,cough meds -seems to be improved with above supportive care ,off oxygen, sob improved.She's independent with her ADLs, ambulated without O2 was 94%. active smoker : strongly advised to abstain from smokin-added nicotein patch. patient will be going home with po prednisone 40 mg x4 days , tamiflu 75mg po bid (9 doses),loratidine 10 mg qd (limited supply),cough medication. PT eval - plan: home with:po prednisone 40 mg x4 days , tamiflu 75mg po bid (9 doses),loratidine 10 mg qd (limited supply),cough medication. Above management discussed with the detail length she understand with the plan, time 40 minutes. Time Attestation Total time managing care of this patient today: 40 mintues. Discharge Coordination Time (in mins): 40 min Quality: Safe Use of Opioids Does Pt have an Active Cancer Diagnosis on the Problem List?: No Quality: Stroke Does the patient have a stroke diagnosis?: No Physical Exam Vital Signs: Vital Signs: Last Vital Signs Temp 97.0 F 07/28/24 07:14 Pulse 77 07/28/24 08:39 Resp 18 07/28/24 08:01 BP 131/79 07/28/24 07:14 Pulse Ox 92 07/28/24 08:39 O2 Del Method Room Air 07/28/24 07:14 O2 Flow Rate 2 07/28/24 04:00 Oxygen Flow Rate 2 07/27/24 14:11 BMI result Body Mass Index 27.4 Appearance: Alert.? Oriented X3.? cvs: rrr, [id number] . res: clear to auscultation ,no rhonchii or wheezing abd: no rebound or guarding ,nt, bs present. ext pulses present , no cyanosis . neuro: axo3 , nonfocal. DS: Data Data Completed and Pending Labs on day of discharge: Laboratory Results - last 24 hr 07/27/24 07/27/24 07/27/24 07:46 12:14 14:20 POC Glucose 132 H Lactic Acid 1.6 Troponin I High Sens 7.5 6.3 B-Natriuretic Peptide 38 07/27/24 07/27/24 07/28/24 16:02 19:21 07:13 POC Glucose 154 H 181 H 274 H Lactic Acid Troponin I High Sens B-Natriuretic Peptide Imaging Chest x-ray: Radiologist's impression: ITS Impressions Chest X-Ray 07/27/24 07:45 IMPRESSION: Mild interstitial edema in the correct clinical settings. Superimposed acute inflammatory versus infectious processes cannot be excluded. Electronically signed by: Markus Cook MD 07/27/2024 07:56 AM [facility] Discharge Plan Discharge Anticipated Discharge Date/Time: 07/28/24 10:45 Patient Disposition: Home, Self-Care Discharge Diagnosis: ahrf sec to influenza Referrals: Kiara Resendez MD [Primary Care Provider] - 1 Week Discharge Medications: New prednisone 20 mg Tablet 40 mg PO DAILY Qty: 8 0RF guaifenesin 100 mg/5 mL Liquid 100 mg PO Q4H PRN (Reason: Cough) Qty: 100 0RF oseltamivir [Tamiflu] 75 mg Capsule 75 mg PO Q12H Qty: 9 0RF loratadine 10 mg Tablet 10 mg PO DAILY Qty: 10 0RF nicotine 14 mg/24 hr patch 24 hour 1 patch transdermal DAILY Qty: 7 0RF albuterol sulfate 90 mcg/actuation HFA aerosol inhaler 1 inh inhalation QID PRN (Reason: bronchospasm) Qty: 8.5 0RF Continued multivitamin Tablet 1 tab PO DAILY aspirin 81 mg tablet,delayed release (DR/EC) 1 tab PO DAILY omeprazole 20 mg capsule,delayed release(DR/EC) 1 cap PO DAILY@0630 metformin 500 mg tablet extended release 24 hr 2 tab PO BID cholecalciferol (vitamin D3) 25 mcg (1,000 unit) tablet 1 tab PO DAILY hydrochlorothiazide 25 mg tablet 25 mg PO DAILY lisinopril 2.5 mg tablet 2.5 mg PO BEDTIME cyclobenzaprine 10 mg tablet 10 mg PO BID PRN (Reason: muscle spasm) amoxicillin 500 mg capsule 500 mg PO Q8H ibuprofen 800 mg tablet 800 mg PO TID PRN (Reason: Pain) acetaminophen 650 mg tablet extended release 650 mg PO Q8H PRN (Reason: mild pain) Trulicity 0.75 mg/0.5 mL pen injector 0.75 mg subcut SA alendronate 70 mg tablet 70 mg PO TU sertraline 50 mg tablet 50 mg PO DAILY rosuvastatin 20 mg tablet 20 mg PO DAILY quetiapine 50 mg tablet 100 mg PO BEDTIME fenofibrate micronized 200 mg capsule 200 mg PO BEDTIME pregabalin 100 mg capsule 100 mg PO BID zolpidem 5 mg tablet 5 mg PO BEDTIME PRN (Reason: insomnia) lorazepam 1 mg tablet 1 mg PO BID PRN (Reason: Anxiety) glipizide 5 mg tablet 5 mg PO BID Discharge Orders: Discharge Order (Routine); Ordered 07/28/24 Ordered By: Latisha Alegria Diet: Advance to usual diet Activity on Discharge: As tolerated Stand Alone Forms: Patient Portal Discharge page Print Language: Estonian Care Plan Goals: 64y/o F with pmhx of asthma, type 2 diabetes and fibromyalgia, current smoker came with c/o of dry cough, shortness of breath, body aches, congestion, and headaches ( 1day duration). She does endorse some shortness of breath-admitted for acute hypoxemic respiratory failure/asthma excerebation(mild intermittent) and possible viral pneumonia influenza A: started on nebs ,steriods ,oxygen ,tamiflu ,loratidine ,cough meds -seems to be improved with above supportive care ,off oxygen, sob improved. active smoker : strongly advised to abstain from smokin-added nicotein patch. patient will be going home with po prednisone 40 mg x4 days , tamiflu 75mg po bid (9 doses),loratidine 10 mg qd (limited supply),cough medication. PT eval pending. Health Concerns: as above. Plan of Treatment: home with po prednisone 40 mg x4 days , tamiflu 75mg po bid (9 doses),loratidine 10 mg qd (limited supply),cough medication. Assessment: as above. Patient Instructions: Influenza (DC) Discharge Date/Time: 07/28/24 12:26
[2024-07-28 11:15] VITALS: PULSE 90; RESP 20; O2SAT 92
[2024-07-28 11:20] LABS: Glucose, Whole Blood 76 mg/dL (60-115)
[2024-07-28] MEDS: Oseltamivir Phosphate 75 MG CAPSULE PO (11:36)
--- NOTE | 2024-07-28 14:20 | P.F2F_ITS ---
Service Date Service Date: 07/28/24 Encounter Date of encounter: 07/28/24 Encounter: ahrf, influenza A Reasons for Services Signs and symptoms assessed: sob or new c/o. Reason for [facility]: medication management, medication treatment and teach disease management Reason for physical therapy: home safety and mobility, therapeutic exercises, restore joint function, gait/transfer training, assess need for DME, ADL training, energy conservation and other MD Overseeing Care: Kiara Resendez Homebound: Leaving the home is medically contraindicated at this time without the asist of a device and/or another person due th the listed conditions above and below. Reason homebound: weakness related to hospital stay Homebound supporting statement: Patient is generalised weak post hospitlisation and need help with going to appointments and labs draws as well as PT. Certification: Based on the above findings, I certify that this patient is confined to the home and needs intermittent [facility] care, physical therapy and/or speech therapy, or continues to need occupational therapy. The patient is under my care, and I have initiated the establishment of the plan of care. The patient will be followed by a physician who will periodically review the plan of care. Time Spent With Patient Time: Total time managing care of this patient today ____ minutes.
--- NOTE | 2024-07-28 15:00 | MHC.CM.PN ---
Patient lives in an apartment w/ spouse. Daughter is daily BI APPLICATION DEVELOPER and assists w/ ADL's. Ambulates w/ cane, rolling walker PRN. PCP Dr Resendez No HCP. CM provided education and offered assistance. Patient declined. DP: Home, resume BI APPLICATION DEVELOPER, new [facility] (patient preference) for PT services. Medically cleared for dc via private transport.
== END 2024-07-28 12:26 | disposition home or self-care (01) | DRG 139 ==
LOC: HO.ED 12:08 → HO.EDOVER 13:09 → HO.S3 14:19
PROVIDERS: Emergency Medicine; Physician Assistant Medical; Admitting Provider Internal Medicine; Emergency Provider Emergency Medicine; PCP Family Medicine; Visit Provider Internal Medicine
DX: J10.00 Influenza due to other identified influenza virus with unspecified type of pneumonia (principal); J96.01 Acute respiratory failure with hypoxia; J45.21 Mild intermittent asthma with (acute) exacerbation; I10 Essential (primary) hypertension; F17.210 Nicotine dependence, cigarettes, uncomplicated; Z71.6 Tobacco abuse counseling; Z79.82 Long term (current) use of aspirin; Z79.84 Long term (current) use of oral hypoglycemic drugs; Z79.85 Long-term (current) use of injectable non-insulin antidiabetic drugs; Z79.899 Other long term (current) drug therapy
CPT/HCPCS: 0241U; 36415; 71046; 80053; 82947; 83605; 83880; 84484; 85025; 87040; 93005; 94640; 97162; 99285; J2919

== ENCOUNTER → 2024-07-27 07:45 | Outpatient (BNV) | payer MEDICAID, SELFPAY | PROVIDERS: PCP Family Medicine; Visit Provider Radiology Diagnostic Radiology | DX: R05.9 Cough, unspecified (principal); R06.02 Shortness of breath | CPT/HCPCS: 71046 ==

== ENCOUNTER → 2024-07-27 12:03 | Outpatient (BNV) | payer MEDICAID, SELFPAY | PROVIDERS: Admitting Provider Internal Medicine; Emergency Provider Emergency Medicine; PCP Family Medicine; Visit Provider Internal Medicine | DX: R06.02 Shortness of breath (principal) | CPT/HCPCS: 93010 ==

== ENCOUNTER → 2024-07-27 13:05 | Outpatient (BNV) | payer MEDICAID, SELFPAY | PROVIDERS: Admitting Provider Internal Medicine; Emergency Provider Emergency Medicine; PCP Family Medicine; Visit Provider Internal Medicine | DX: J96.01 Acute respiratory failure with hypoxia (principal); J10.1 Influenza due to other identified influenza virus with other respiratory manifestations; J45.21 Mild intermittent asthma with (acute) exacerbation | CPT/HCPCS: 99222; 99239; G0180 ==

== ENCOUNTER 2024-12-07 08:12 | Outpatient (REF) | payer MEDICAID, SELFPAY ==
--- OUTSIDE RECORDS SUMMARY | 2024-12-07 08:20 | XMS_ITS | Encounter Summary ---
Author Organization [employer] Address [address] [place] [address] Care Team Providers Care Verification Clerk Name Role Phone Kiara Resendez MD Primary Care Provider [phone] Paul Macias PharmD Unavailable Encounter Details Date Type Department Care Team (Late st Contact Info) Description 08/21/2024 Abstract [facility] MEDICINE [address] [place], [place] [phone] Pilar Reyes MA Social History Tobacco Use Types Packs/Day Years Used Date Smoking Tobacco: Every Day Cigarettes 0.3 48 Passive Smoke Exposure: Current Smokeless Tobacco: Never Comments:Light tobacco smoke r 3 Cigarettes per day while currently trying to quit Alcohol Use Standard Drinks/Week Comments Never 0 (1 standard drink = 0.6 oz pur e alcohol) Depression Answer Date Recorded Patient Health Questionnaire-9 Score 11 07/13/2024 Patient Health Questionnaire-9 Score 11 07/13/2024 Last PHQ-9: Questionnaire Data Not on file 1 09/13/2023 Housing Stability Answer Date Recorded What is your housing situation today? I have housing today, but I am worried about losing housing in the future 07/13/[address] you li ve. Do you have problems with any of the following? None of the above 07/13/2024 Food Insecurity Answer Date Recorded Within the past 12 months, y ou worried that your food would run out before you got money to buy more: Never True 07/13/2024 Within the past 12 months,th e food you bought just didn't last and you didn't have enough money to get more: Never True Transportation Answer Date Recorded In the past 12 months, has l ack of transportation kept you from medical appts, meetings, work or from getting things needed for daily living? No 07/13/2024 Utilities Answer Date Recorded In the past 12 months, has t he electric, gas, oil or water company threatened to shut off services in your home? No 07/13/2024 Depression Answer Date Recorded Patient Health Questionnaire-2 Score 2 07/13/2024 Internet Access Answer Date Recorded Internet Access Q1 Yes 07/13/2024 Internet Access Q2 Not on file 07/13/2024 Comments Unknown Sex and Gender Information Value Date Recorded Sex Assigned at Female 05/18/2022 10:20 AM EDT Legal Sex Female 10:20 AM EDT Gender Identity Female 05/18/2022 10:20 AM EDT Sexual Orientation Straight 05/18/2022 10 :20 AM EDT Occupation Industry Job Start Date Job End Date Unemployed Not on file Not on file Not on file documented as of this encounter Plan of Treatment Upcoming Encounters Date Type Department Care Team (Late st Contact Info) Description 12/12/2024 11:15 AM EDT Office Visit [facility] MEDICINE [address] [place] [address] Kiara Resendez MD [address] [place] [address] 12/27/2024 9:00 AM EDT Office Visit [facility] ADULT DENTAL [address] [place] [address] Emeli Samano [address] [place] [address] 01/22/2025 9:30 AM EDT Telemedicine [facility] CHC MED & PEDS [address] [place] [address] Sona Moreira, JEFF [address] [place] [address] documented as of this encounter Goals Goal Patient Goal Type Associated Problems Recent Progress Patient-Stated? Author Blood Pressure < 140/90 Blood Pressure 116/70(2024 1:01 PM EDT) No Paul Macias, PharmD Eat a balanced, healthy diet Diet No Jess Garcia, RN Hemoglobin A1c < 7 Result Component 6.5( 5 10:15 AM EST) No Paul Macias PharmD Quit using tobacco (cigarettes, smokeless, etc) Tobacco Use No Paul Macias PharmD documented as of this encounter Visit Diagnoses Not on filedocumented in this encounter Additional Health Concerns Assessment Noted Time PHQ-9 Depression Total Score: 11 024 9:28 AM EST documented as of this encounter Care Teams Verification Clerk Relationship Specialty Start Date End Date Kiara Resendez MD [address] [place] [address] PCP - General Family Medicine 07/19/18 Paul Macias, Sabrina [address] [place] [address] Pharmacist Internal Medicine 11/20/22 Karlee Sanders Expanding Machine OperatorWastewater Treatment Plant Chemist 02/23/24 documented as of this encounter
--- OUTSIDE RECORDS SUMMARY | 2024-12-07 08:20 | XMS_ITS | Encounter Summary ---
Author Organization [employer] Address [address] [place] [address] Care Team Providers Care Engine Installer Name Role Phone Kiara Resendez MD Primary Care Provider [phone] Paul Macias PharmD Unavailable [phone] Reason for Visit * Reason Onset Date Comments need upperr and lower models 09/02/2023 Encounter Details Date Type Department Care Team (Late st Contact Info) Description 09/02/2023 Telephone [facility] ADULT DENTAL [address] [place], [place] [phone] Beni Almodovar DDS [address] [place], [place] [phone] need upperr and lower models Social History Tobacco Use Types Packs/Day Years Used Date Smoking Tobacco: Every Day Cigarettes 0.3 48 Passive Smoke Exposure: Current Smokeless Tobacco: Never Comments:Light tobacco smoke r 3 Cigarettes per day while currently trying to quit Alcohol Use Standard Drinks/Week Comments Never 0 (1 standard drink = 0.6 oz pur e alcohol) Depression Answer Date Recorded Patient Health Questionnaire-9 Score 8 08/25/2022 Housing Stability Answer Date Recorded What is your housing situation today? I have hussain boothe [address] you li ve. Do you have problems with any of the following? None of the above 2023 Food Insecurity Answer Date Recorded Within the past 12 months, y ou worried that your food would run out before you got money to buy more: Never True 2023 Within the past 12 months,th e food you bought just didn't last and you didn't have enough money to get more: Never True Transportation Answer Date Recorded In the past 12 months, has l ack of transportation kept you from medical appts, meetings, work or from getting things needed for daily living? No 2023 Utilities Answer Date Recorded In the past 12 months, has t he electric, gas, oil or water company threatened to shut off services in your home? No 2023 Depression Answer Date Recorded Patient Health Questionnaire-2 Score 3 08/25/2022 Comments Unknown Sex and Gender Information Value Date Recorded Sex Assigned at Female 05/18/2022 10:20 AM EDT Legal Sex Female 10:20 AM EDT Gender Identity Female 05/18/2022 10:20 AM EDT Sexual Orientation Straight 05/18/2022 10 :20 AM EDT Occupation Industry Job Start Date Job End Date Unemployed Not on file Not on file Not on file documented as of this encounter Miscellaneous Notes * Telephone Encounter - Suresh Kong DMD - 09/03/2023 8:31 AM EST Please follow up with Dr. Almodovar. Kristin Gaxiola * Telephone Encounter - Nieves Garner - 09/02/2023 4:17 PM EST Leif from [facility] called stating that they need the upper and lower models for he wax try in. They did not receive them. documented in this encounter Plan of Treatment Upcoming Encounters Date Type Department Care Team (Late st Contact Info) Description 12/12/2024 11:15 AM EDT Office Visit [facility] MEDICINE [address] [place], [place] [phone] Kiara Resendez MD [address] [place] [address] 12/27/2024 9:00 AM EDT Office Visit [facility] ADULT DENTAL [address] [place] [address] Emeli Samano [address] [place] [address] 01/22/2025 9:30 AM EDT Telemedicine [facility] CHC MED & PEDS [address] [place] [address] Sona Moreira, JEFF [address] [place] [address] documented as of this encounter Goals Goal Patient Goal Type Associated Problems Recent Progress Patient-Stated? Author Blood Pressure < 140/90 Blood Pressure 116/70(2024 1:01 PM EDT) No Paul Macias PharmD Eat a balanced, healthy diet Diet No Jess Garcia RN Hemoglobin A1c < 7 Result Component 6.5( 10:15 AM EST) No Paul Macias PharmD Quit using tobacco (cigarettes, smokeless, etc) Tobacco Use No Paul Macias PharmD documented as of this encounter Visit Diagnoses Not on filedocumented in this encounter Additional Health Concerns Assessment Noted Time PHQ-9 Depression Total Score: 8 08/25/19 23 10:52 AM EST documented as of this encounter Care Teams Engine Installer Relationship Specialty Start Date End Date Kiara Resendez MD [address] [place] [address] PCP - General Family Medicine 07/19/18 Paul Macias PharmD [address] [place] [address] Pharmacist Internal Medicine 11/20/22 Karlee Sanders Biological Lab TechnicianDirect Care Staffer 02/23/24 documented as of this encounter
--- OUTSIDE RECORDS SUMMARY | 2024-12-07 08:20 | XMS_ITS | Encounter Summary ---
Author Organization [employer] Address [address] [place] [address] Care Team Providers Care Ironworker Wire Fence Erector Name Role Phone Kiara Resendez MD Primary Care Provider [phone] Paul Macias PharmD Unavailable [phone] Reason for Visit * Reason Comments Med Refill Encounter Details Date Type Department Care Team ([facility] st Contact Info) Description 08/26/2023 Refill [facility] MEDICINE [address] [place], [place] [phone] Kiara Resendez MD [address] [place], [place] [phone] Social History Tobacco Use Types Packs/Day Years [...] Description 12/12/2024 11:15 AM EDT Office Visit [facility] MEDICINE [address] [place] [address] Kiara Resendez MD [address] [place] [address] 12/27/2024 9:00 AM EDT Office Visit [facility] ADULT DENTAL [address] [place] [address] Jazmyne, Emeli [address] [place] [address] 01/22/2025 9:30 AM EDT Telemedicine [facility] CHC MED & PEDS [address] [place] [address] Sona Moreira, JEFF [address] [place] [address] documented as of this encounter Goals Goal Patient Goal Type Associated Problems Recent Progress Patient-Stated? Author Blood Pressure < 140/90 Blood Pressure 116/70(2024 1:01 PM EDT) No Paul Macias, PharmD Eat a balanced, healthy diet Diet No Jess Garcia, JEFF Hemoglobin A1c < 7 Result Component 6.5( 10:15 AM EST) No MaciasPaul PharmD Quit using tobacco (cigarettes, smokeless, etc) Tobacco Use No Paul Macias PharmD documented as of this encounter Visit Diagnoses Not on filedocumented in this encounter Additional Health Concerns Assessment Noted Time PHQ-9 Depression Total Score: 8 08/25/19 23 10:52 AM EST documented as of this encounter Care Teams Ironworker Wire Fence Erector Relationship Specialty Start Date End Date Kiara Resendez MD [address] [place] [address] PCP - General Family Medicine 07/19/18 Paul Macias PharmD [address] [place] [address] Pharmacist Internal Medicine 11/20/22 Kalree Sanders Client Services AssociateChassis Engineer 02/23/24 documented as of this encounter
--- OUTSIDE RECORDS SUMMARY | 2024-12-07 08:20 | XMS_ITS | Encounter Summary ---
Author Organization [employer] [facility] Address [address] [place] [address] Care Team Providers Care Consumer Loan Officer Name Role Phone Kiara Resendez MD Primary Care Provider [phone] Paul Macias PharmD Unavailable [phone] Encounter Details Date Type Department Care Team (Latest Contact Info) Description 12/26/2018 Abstract [facility] CONVERSIONS Dental, Provider, DDS Social History Tobacco Use Types Packs/Day Years Used Date Smoking Tobacco: Never Assessed Comments Unknown Sex and Gender Information Value Date Recorded Sex Assigned at Female 05/18/2022 10:20 AM EDT Legal Sex Female 10:20 AM EDT Gender Identity Female 05/18/2022 10:20 AM EDT Sexual Orientation Straight 05/18/2022 10 :20 AM EDT documented as of this encounter Plan of Treatment Upcoming Encounters Date Type Department Care Team (Late st Contact Info) Description 12/12/2024 11:15 AM EDT Office Visit [facility] MEDICINE [address] [place] [address] Kiara Resendez MD [address] [place] [address] 12/27/2024 9:00 AM EDT Office Visit [facility] ADULT DENTAL [address] [place] [address] Mohamud Samanoaris [address] [place] [address] 01/22/2025 9:30 AM EDT Telemedicine [facility] CHC MED & PEDS [address] [place] [address] Sona Moreira, RN [address] [place] [address] documented as of this encounter Visit Diagnoses Not on filedocumented in this encounter Care Teams Consumer Loan Officer Relationship Specialty Start Date End Date Kiara Resendez MD [address] [place] [address] PCP - General Family Medicine 07/19/18 Paul Macias, AlvinD [address] [place] [address] Pharmacist Internal Medicine 11/20/22 Karlee Sanders Er PhysicianDirector Broadcast 02/23/24 documented as of this encounter
--- OUTSIDE RECORDS SUMMARY | 2024-12-07 08:20 | XMS_ITS | Encounter Summary ---
Author Organization [employer] Address [address] [facility] [address] 7[address] [place] [address] Care Team Providers Care Piece Goods Packer Name Role Phone Kiara Resendez MD Primary Care Provider [phone] Paul Macias PharmD Unavailable [phone] Encounter Details Date Type Department Care Team ([facility] st Contact Info) Description 12/17/2023 Orders Only [facility] MEDICINE [address] [place], [place] [phone] Kiara Resendez MD 230 [place], [place] [phone] Social History Tobacco Use Types Packs/Day Years [...] Upcoming Encounters Date Type Department Care Team ([facility] st Contact Info) Description 12/12/2024 11:15 AM EDT Office Visit [facility] MEDICINE [address] [place] [address] Kiara Resendez MD 230 [place] [address] 12/27/2024 9:00 AM EDT Office Visit [facility] ADULT DENTAL 230 [place] [address] Jazmyne, Emeli [address] [place] [address] 01/22/2025 9:30 AM EDT Telemedicine [facility] CHC MED & PEDS 505 [place] [address] Sona Moreira RN 505 [place] [address] documented as of this encounter Goals Goal Patient Goal Type Associated Problems Recent Progress Patient-Stated? Author Blood Pressure < 140/90 Blood Pressure 116/70(2024 1:01 PM EDT) No Paul Macias, PharmD Eat a balanced, healthy diet Diet No Jess Garcia, RN Hemoglobin A1c < 7 Result Component 6.5( 10:15 AM EST) No Paul Macias, Sabrina Quit using tobacco (cigarettes, smokeless, etc) Tobacco Use No Paul Macias, PharmD documented as of this encounter Visit Diagnoses Not on filedocumented in this encounter Additional Health Concerns Assessment Noted Time PHQ-9 Depression Total Score: 8 08/25/19 23 10:52 AM EST documented as of this encounter Care Teams Piece Goods Packer Relationship Specialty Start Date End Date Kiara Resendez MD 230 [place] [address] PCP - General Family Medicine 07/19/18 Paul Macias, PharmD 230 [place] [address] Pharmacist Internal Medicine 11/20/22 Karlee Sanders Sugar Cane Planter Machine OperatorMarketing Traffic Coordinator 02/23/24 documented as of this encounter
--- OUTSIDE RECORDS SUMMARY | 2024-12-07 08:20 | XMS_ITS | Encounter Summary ---
Author Organization [employer] Address [address] [facility] [address] 7t [place] [address] Care Team Providers Care Melter Supervisor Electric Arc Furnace Name Role Phone Kiara Resendez MD Primary Care Provider Paul Macias PharmD Unavailable [phone] Reason for Visit * Reason Comments Med Refill Encounter Details Date Type Department Care Team ([facility] st Contact Info) Description 11/18/2023 Refill [facility] MEDICINE 230 [place], [place] [phone] Kiara Resendez MD 230 [place], [place] [phone] Social History Tobacco Use Types Packs/Day Years [...] Description 12/12/2024 11:15 AM EDT Office Visit [facility] MEDICINE 230 [place] [address] Kiara Resendez MD 230 [place] [address] 12/27/2024 9:00 AM EDT Office Visit [facility] ADULT DENTAL [address] [place] [address] Jazmyne, Emeli 230 [place] [address] 01/22/2025 9:30 AM EDT Telemedicine [facility] CHC MED & PEDS 505 [place] [address] Sona Moreira, JEFF 505 [place] [address] documented as of this encounter Goals Goal [...] documented as of this encounter Care Teams Melter Supervisor Electric Arc Furnace Relationship Specialty Start Date End Date Kiara Resendez MD 230 [place] [address] PCP - General Family Medicine 07/19/18 Paul Macias PharmD 230 [place] [address] Pharmacist Internal Medicine 11/20/22 Karlee Sanders Control Integration EngineerCaterer'S Aide 02/23/24 documented as of this encounter
--- OUTSIDE RECORDS SUMMARY | 2024-12-07 08:20 | XMS_ITS | Encounter Summary ---
Author Organization [employer] Address 75 [facility] 7t [place] [address] Care Team Providers Care Water Carter Name Role Phone Kiara Resendez MD Primary Care Provider [phone] Paul Macias PharmD Unavailable [phone] Reason for Visit * Reason Comments Med Refill Encounter Details Date Type Department Care Team ([facility] st Contact Info) Description 09/09/2022 Refill [facility] MEDICINE 230 [place] [address] Kiara Resendez MD 230 [place] [address] Allergic rhinitis, unspecified seasonality, unspecified trigger Social History Tobacco Use Types Packs/Day Years Used Date Smoking Tobacco: Former Cigarettes Passive Smoke Exposure: Past Smokeless Tobacco: Never Comments:Light tobacco smoke r 3 Cigarettes per day Alcohol Use Standard Drinks/Week Comments Never 0 (1 standard drink = 0.6 oz pur e alcohol) Depression Answer Date Recorded Patient Health Questionnaire-9 Score 8 08/25/2022 Depression Answer Date Recorded Patient Health Questionnaire-2 [...] file Not on file Not on file COVID-19 Exposure Response Date Recorded In the last 10 days, have yo u been in contact with someone who was confirmed or suspected to have Coronavirus/COVID-19? No / Unsure 09/08/2022 9:20 AM EST documented as of this encounter Plan of Treatment Upcoming Encounters Date Type Department Care Team (Late st Contact Info) Description 12/12/2024 11:15 AM EDT Office Visit [facility] MEDICINE 230 [place] [address] Kiara Resendez MD 230 [place] [address] 12/27/2024 9:00 AM EDT Office Visit [facility] ADULT DENTAL [address] [place] [address] Jazmyne, Emeli 230 [place] [address] 01/22/2025 9:30 AM EDT Telemedicine [facility] MED & PEDS 505 [place], [place] [phone] Sona Moreira, JEFF 505 [place], [place] [phone] documented as of this encounter Goals Goal Patient Goal Type Associated Problems Recent Progress Patient-Stated? Author Eat a balanced, healthy diet Diet Jess Rowe, RN documented as of this encounter Visit Diagnoses Diagnosis Allergic rhinitis, unspecified seasonality, unspecified trigger documented in this encounter Additional Health Concerns Assessment Noted Time PHQ-9 Depression Total Score: 8 08/25/19 23 10:52 AM EST documented as of this encounter Care Teams Water Carter Relationship Specialty Start Date End Date Kiara Resendez MD [address] [place] [address] PCP - General Family Medicine 07/19/18 Paul Macias, AlvinD [address] [place] [address] Pharmacist Internal Medicine 11/20/22 Karlee Sanders Broom ManDirector Of Purchasing 02/23/24 documented as of this encounter
--- OUTSIDE RECORDS SUMMARY | 2024-12-07 08:20 | XMS_ITS | Encounter Summary ---
Author Organization [employer] Address 75 [facility] [address] 7t [place] [address] Care Team Providers Care Manager Of Applications Development Name Role Phone Kiara Resendez MD Primary Care Provider [phone] Paul Macias PharmD Unavailable [phone] Reason for Visit * Reason Comments Med Refill Encounter Details Date Type Department Care Team ([facility] st Contact Info) Description 08/26/2023 Refill [facility] MEDICINE 230 [place], [place] [phone] Kiara Resendez MD 230 [place], [place] [phone] Social History Tobacco Use Types Packs/Day Years [...] Description 12/12/2024 11:15 AM EDT Office Visit [facility] MEDICINE 230 [place] [address] Kiara Resendez MD 230 [place] [address] 12/27/2024 9:00 AM EDT Office Visit [facility] ADULT DENTAL 230 [place] [address] Jazmyne, Emeli 230 [place] [address] 01/22/2025 9:30 AM EDT Telemedicine [facility] CHC MED & PEDS 505 [place] [address] Sona Moreira, JEFF 505 [place] [address] documented as of this encounter Goals Goal [...] documented as of this encounter Care Teams Manager Of Applications Development Relationship Specialty Start Date End Date Kiara Resendez MD 230 [place] [address] PCP - General Family Medicine 07/19/18 Paul Macias PharmD 230 [place] [address] Pharmacist Internal Medicine 11/20/22 Karlee Sanders Puppy SitterManager Long Term Care 02/23/24 documented as of this encounter
--- OUTSIDE RECORDS SUMMARY | 2024-12-07 08:20 | XMS_ITS | Encounter Summary ---
Author Organization [employer] Address [address] [facility] [address] 7t [place] [address] Care Team Providers Care Pecan Picker Name Role Phone Kiara Resendez MD Primary Care Provider [phone] Paul Macias PharmD Unavailable [phone] Encounter Details Date Type Department Care Team ([facility] st Contact Info) Description 12/02/2023 Orders Only [facility] MEDICINE 230 [place], [place] [phone] Kiara Resendez MD 230 [place], [place] [phone] Social History Tobacco Use Types Packs/Day Years [...] Upcoming Encounters Date Type Department Care Team ([facility] st Contact Info) Description 12/12/2024 11:15 AM EDT Office Visit [facility] MEDICINE [address] [place] [address] Kiara Resendez MD 230 [place] [address] 12/27/2024 9:00 AM EDT Office Visit [facility] ADULT DENTAL [address] [place] [address] Jazmyne, Emeli [address] [place] [address] 01/22/2025 9:30 AM EDT Telemedicine [facility] CHC MED & PEDS 505 [place] [address] Sona Moreira RN 505 [place] [address] documented as of this encounter Goals Goal [...] Macias PharmD documented as of this encounter Procedures Procedure Name Priority Date/Time Associated Diagnosis Comments BI MAMMOGRAM SCREENING TOMOSYNTHESIS BILATERAL Routine 12/02/2023 8:40 AM EDT documented in this encounter Results * BI Mammogram Screening Tomosynthesis Bilateral (12/02/2023 8:40 AM EDT) Anatomical Region Laterality Modality Breast Bilateral Mammography 12/02/2023 8:40 AM EDT Narrative 12/27/2023 1:51 PM EDT ? [facility] ? [address] ?[place] [address] ? Mammography Report ? Signed ? Patient: Lisa De La Cruz ?MR ?? #: [id number] ? : 1960 ?Acct:[id number] ? Age/Sex: 63 / F ?ADM Date: 12/02/23 ? Loc: HO.MAMMO ? Attending Dr: Kiara Resendez MD ? Ordering Physician: Kiara Resendez MD ?Results: 1Negative ? Date of Service: 12/02/23 ?Follow Up: 1 Year From Orig ?? inal Mammogram ? Procedure(s): MM tomosynthesis screening BI ?? Accession Number(s): [id number] ? cc: Kiara Resendez MD ? EXAMINATION: ?? MM SCREENING DIGITAL BREAST TOMOSYNTHESIS, BILATERAL ? CLINICAL INFORMATION: ? Screening. Asymptomatic. ? COMPARISON: ?? Mammography: 11/19/2022, 12/10/2021, and dating back to 11/20/2013. ? TECHNIQUE: ?? Digital breast tomosynthesis is performed in both the craniocaudal and ?? mediolateral oblique views along with computer-aided detection (CAD). ?? Synthesized 2D images are generated from the tomosynthesis. ??An extra ?? full-field right MLO view was included for nipple in profile. ? FINDINGS: ?? There are scattered areas of fibroglandular density (ACR BI-RADS breast ?? composition Category b). ? There are no suspicious masses, suspicious grouped calcifications, or ?? areas of architectural distortion in either breast. The parenchymal ?? pattern is stable from prior exams. ??No skin or axillary abnormalities ?? of suspicion. ? MM/MM tomosynthesis screening BI ?? IMPRESSION: ?? No mammographic evidence of malignancy. ? ASSESSMENT: ? BI-RADS BI-RADS 1 - Negative ? RECOMMENDATION: ?? Routine annual mammography screening. ? 1 year F/U ? This examination should not preclude the clinical evaluation of a ?? suspicious palpable abnormality. ? This patient's information was entered into a reminder system with a ?? target due date for their next mammogram. ? Dictated By: ?Loy Townsend MD ? Signed By: ?<Electronically signed by Loy Townsend MD in OV> ?12/27/23 1347 ? DD/ 0840 ? TD/TT: ? Twill Cutter: ? Procedure Note Behzad, Image - 12/27/2023 [facility] [address] [place] [address] Dr. [place], [place] [address] Mammography Report Signed Patient: Matthias De La Cruz #: [id number] : 2Acct:[id number] Age/Sex: 63 / FADM Date: 12/02/23 Loc: HO.MAMMO Attending Dr: Kiara Resendez MD Ordering Physician: Kiara Resendez MDResults: 1Negative Date of Service: 12/02/23Follow Up: 1 Year From Orig ina Mammogram Procedure(s): MM tomosynthesis screening BI Accession Number(s): [id number] cc: Kiara Resendez MD EXAMINATION: MM SCREENING DIGITAL BREAST TOMOSYNTHESIS, BILATERAL CLINICAL INFORMATION: Screening. Asymptomatic. COMPARISON: Mammography: 11/19/2022, 12/10/2021, and dating back to 11/20/2013. TECHNIQUE: Digital breast tomosynthesis is performed in both the craniocaudal and mediolateral oblique views along with computer-aided detection (CAD). Synthesized 2D images are generated from the tomosynthesis. An extra full-field right MLO view was included for nipple in profile. FINDINGS: There are scattered areas of fibroglandular density (ACR BI-RADS breast composition Category b). There are no suspicious masses, suspicious grouped calcifications, or areas of architectural distortion in either breast. The parenchymal pattern is stable from prior exams. No skin or axillary abnormalities of suspicion. MM/MM tomosynthesis screening BI IMPRESSION: No mammographic evidence of malignancy. ASSESSMENT: BI-RADS BI-RADS 1 - Negative RECOMMENDATION: Routine annual mammography screening. 1 year F/U This examination should not preclude the clinical evaluation of a suspicious palpable abnormality. This patient's information was entered into a reminder system with a target due date for their next mammogram. Dictated By: Loy Townsend MD Signed By: <Electronically signed by Loy Townsend MD in OV> 12/27/23 1347 DD/ 0840 TD/TT: Twill Cutter: us Kiara Resendez MD IMG BI PROCEDURES Final Result documented in this encounter Visit Diagnoses Not on filedocumented in this encounter Additional Health Concerns Assessment Noted Time PHQ-9 Depression Total Score: 8 08/25/19 23 10:52 AM EST documented as of this encounter Care Teams Pecan Picker Relationship Specialty Start Date End Date Kiara Resendez MD [address] [place] [address] PCP - General Family Medicine 07/19/18 Paul Macias, PharmD 230 [place] [address] Pharmacist Internal Medicine 11/20/22 Karlee Sanders Lime Hide InspectorCable Tv Installer 02/23/24 documented as of this encounter
--- OUTSIDE RECORDS SUMMARY | 2024-12-07 08:20 | XMS_ITS | Encounter Summary ---
Author Organization [employer] Address [address] [facility] [address] 7t [place] [address] Care Team Providers Care Sports Marketing Coordinator Name Role Phone Kiara Resendez MD Primary Care Provider [phone] Paul Macias PharmD Unavailable [phone] Encounter Details Date Type Department Care Team ([facility] st Contact Info) Description 07/30/2023 Orders Only [facility] MEDICINE 230 [place], [place] [phone] Kiara Resendez MD 230 [place], [place] [phone] Social History Tobacco Use Types Packs/Day Years [...] on file documented as of this encounter Functional Status * Over the last 2 weeks, how often have you been bothered by any of the following problems? Question Answer Date of Assessment Author Feeling nervous, anxious, or on edge 3 07/19 12:48 PM Megan Cruz Not being able to stop or co ntrol worrying 3 07/30/2023 12:48 PM Megan Cruz Worrying too much about different things 3 07/30/2023 12:48 PM Megan Cruz Trouble relaxing 3 07/30/2023 12:48 PM Megan Cruz Being so restless that it is hard to sit still 3 07/30/2023 12:48 PM Megan Cruz Becoming easily annoyed or irritable 3 07/19 12:48 PM Megan Cruz Feeling afraid as if somethi ng awful might happen 3 07/30/2023 12:48 PM Megan Cruz GURU-7 Total Score 21 07/30/2023 12:48 PM Megan Cruz documented as of this encounter Plan of Treatment Upcoming Encounters Date Type Department Care Team (Late st Contact Info) Description 12/12/2024 11:15 AM EDT Office Visit [facility] MEDICINE [address] [place], [place] [phone] Kiara Resendez MD 230 [place], [place] [phone] 12/27/2024 9:00 AM EDT Office Visit [facility] ADULT DENTAL 230 [place] [address] Emeli Samano 230 [place] [address] 01/22/2025 9:30 AM EDT Telemedicine [facility] CHC MED & PEDS 505 [place] [address] Sona Moreira, JEFF 505 [place], [place] documented as of this encounter Goals Goal [...] documented as of this encounter Care Teams Sports Marketing Coordinator Relationship Specialty Start Date End Date Kiara Resendez MD [address] [place] [address] PCP - General Family Medicine 07/19/18 Paul Macias PharmD [address] [place] [address] Pharmacist Internal Medicine 11/20/22 Karlee Sanders Bolter HelperRn Patient Services 02/23/24 documented as of this encounter
--- OUTSIDE RECORDS SUMMARY | 2024-12-07 08:20 | XMS_ITS | Encounter Summary ---
Author Organization [employer] Address [address] [facility] [address] 7t [place] [address] Care Team Providers Care Board Catcher Name Role Phone Kiara Resendez MD Primary Care Provider [phone] Paul Macias PharmD Unavailable [phone] Encounter Details Date Type Department Care Team ([facility] st Contact Info) Description 02/16/2024 Orders Only [facility] MEDICINE 230 [place], [place] [phone] Kiara Resendez MD [address] [place], [place] [phone] Social History Tobacco Use Types Packs/Day Years [...] Upcoming Encounters Date Type Department Care Team ([facility] st Contact Info) Description 12/12/2024 11:15 AM EDT Office Visit [facility] MEDICINE [address] [place] [address] Kiara Resendez MD [address] [place] [address] 12/27/2024 9:00 AM EDT Office Visit [facility] ADULT DENTAL 230 [place] [address] Jazmyne, Emeli 230 [place] [address] 01/22/2025 9:30 AM EDT Telemedicine [facility] CHC MED & PEDS 505 [place] [address] Sona Moreira RN 505 [place] [address] documented as of this encounter Goals Goal [...] documented as of this encounter Care Teams Board Catcher Relationship Specialty Start Date End Date Kiara Resendez MD [address] [place] [address] PCP - General Family Medicine 07/19/18 Paul Macias, PharmD [address] [place] [address] Pharmacist Internal Medicine 11/20/22 Karlee Sanders Baton TwirlerProcess Control Engineer 02/23/24 documented as of this encounter
--- OUTSIDE RECORDS SUMMARY | 2024-12-07 08:20 | XMS_ITS | Encounter Summary ---
Author Organization [employer] Address [address] [facility] [address] 7t [place] [address] Care Team Providers Care Front Maker Name Role Phone Kiara Resendez MD Primary Care Provider [phone] Paul Macias PharmD Unavailable [phone] Reason for Visit * Reason Comments Med Refill Encounter Details Date Type Department Care Team (Late st Contact Info) Description 10/26/2023 Refill [facility] ADULT DENTAL 230 [place] [address] Beni Almodovar DDS 230 [place] [address] Other specified disorders of teeth and supporting structures Social History Tobacco Use Types Packs/Day Years [...] is your housing situation today? I have hussainmanuel boothe [address] you [...] Telephone Encounter - Suresh Kong DMD - 10/26/2023 8:51 AM EDT Please follow up with Dr. Almodovar documented in this encounter Plan of Treatment Upcoming Encounters Date Type Department Care Team (Late st Contact Info) Description 12/12/2024 11:15 AM EDT Office Visit [facility] MEDICINE [address] [place] [address] Kiara Resendez MD 230 [place] [address] 12/27/2024 9:00 AM EDT Office Visit [facility] ADULT DENTAL 230 [place] [address] Emeli Samano 230 [place] [address] 01/22/2025 9:30 AM EDT Telemedicine [facility] CHC MED & PEDS 505 [place] [address] Sona Moreira, RN 505 [place] [address] documented as of this encounter Goals Goal [...] as of this encounter Visit Diagnoses Diagnosis Other specified disorders of teeth and supporting structures documented in this encounter Additional Health Concerns Assessment Noted Time PHQ-9 Depression Total Score: 8 08/25/19 23 10:52 AM EST documented as of this encounter Care Teams Front Maker Relationship Specialty Start Date End Date Kiara Resendez MD 230 [place] [address] PCP - General Family Medicine 07/19/18 Paul Macias, Sabrina [address] [place] [address] Pharmacist Internal Medicine 11/20/22 Karlee Sanders Brake RelinerE Commerce Director 02/23/24 documented as of this encounter
--- OUTSIDE RECORDS SUMMARY | 2024-12-07 08:20 | XMS_ITS | Encounter Summary ---
Author Organization [employer] Address [address] [facility] [address] [place] [address] Care Team Providers Care Horse Groomer Name Role Phone Kiara Resendez MD Primary Care Provider [phone] Paul Macias PharmD Unavailable [phone] Encounter Details Date Type Department Care Team ([facility] Contact Info) Description 07/23/2022 Abstract [facility] MEDICINE 230 [place] [address] Kiara Resendez MD 230 [place], [place] [phone] Social History Tobacco Use Types Packs/Day Years Used Date Smoking Tobacco: Every Day Cigarettes Passive Smoke Exposure: Current Smokeless Tobacco: Never Comments:Light tobacco smoke r 3 Cigarettes per day Alcohol Use Standard Drinks/Week Comments Never 0 (1 standard drink = 0.6 oz pur e alcohol) Comments Unknown Sex and Gender Information Value [...] suspected to have Coronavirus/COVID-19? No / Unsure 07/22/2022 8:12 AM EST documented as of this encounter Plan of Treatment Upcoming Encounters Date Type Department Care Team ([facility] Contact Info) Description 12/12/2024 11:15 AM EDT Office Visit [facility] MEDICINE 230 [place] [address] Kiara Resendez MD 230 [place] [address] 12/27/2024 9:00 AM EDT Office Visit [facility] ADULT DENTAL 230 [place] [address] Mohamud Samanoaris 230 [place] [address] 01/22/2025 9:30 AM EDT Telemedicine [facility] CHC MED & PEDS 505 [place], [place] [phone] Sona Moreira, JEFF 505 [place], [place] documented as of this encounter Goals Goal Patient Goal Type Associated Problems Recent Progress Patient-Stated? Author Eat a balanced, healthy diet Diet Jess Rowe, RN documented as of this encounter Visit Diagnoses Not on filedocumented in this encounter Care Teams Horse Groomer Relationship Specialty Start Date End Date Kiara Resendez MD 230 [place], [place] [phone] PCP - General Family Medicine 07/19/18 Paul Macias, AlvinD [address] [place] [address] Pharmacist Internal Medicine 11/20/22 Karlee Sanders Dredging InspectorCommercial Real Estate Assistant 02/23/24 documented as of this encounter
--- OUTSIDE RECORDS SUMMARY | 2024-12-07 08:20 | XMS_ITS | Encounter Summary ---
Author Organization [employer] Address [address] [place] [address] Care Team Providers Care Electronic Semiconductor Processor Name Role Phone Kiara Resendez MD Primary Care Provider [phone] Paul Macias PharmD Unavailable [phone] Reason for Visit * Reason Comments Med Refill Encounter Details Date Type Department Care Team ([facility] st Contact Info) Description 09/18/2023 Refill [facility] [address] [place], [place] [phone] Kiara Resendez MD [address], [place] [phone] Asthma with COPD Social History Tobacco Use Types Packs/Day Years [...] enough money to get more: Never True 10/ Transportation Answer Date Recorded In the past [...] Description 12/12/2024 11:15 AM EDT Office Visit [facility] MEDICINE [address] [place] [address] Kiara Resendez MD [address] [place] [address] 12/27/2024 9:00 AM EDT Office Visit [facility] ADULT DENTAL [address] [place] [address] Jazmyne Emeli [address] [place] [address] 01/22/2025 9:30 AM EDT Telemedicine [facility] MED & PEDS [address] [place] [address] Sona Moreira, JEFF [address] [place] [address] documented as of this encounter Goals Goal Patient Goal Type Associated Problems Recent Progress Patient-Stated? Author Blood Pressure < 140/90 Blood Pressure 116/70(2024 1:01 PM EDT) No Paul Macias, PharmD Eat a balanced, healthy diet Diet No Jess Garcia, JEFF Hemoglobin A1c < 7 Result Component 6.5( 10:15 AM EST) No Paul Macias, PharmLani Quit using tobacco (cigarettes, smokeless, etc) Tobacco Use No Paul Macias PharmD documented as of this encounter Visit Diagnoses Diagnosis Asthma with COPD (CMS/[facility]) documented in this encounter Additional Health Concerns Assessment Noted Time PHQ-9 Depression Total Score: 8 08/25/19 23 10:52 AM EST documented as of this encounter Care Teams Electronic Semiconductor Processor Relationship Specialty Start Date End Date Kiara Resendez MD [address] [place] [address] PCP - General Family Medicine 07/19/18 Paul Macias, PharmD [address] [place] [address] Pharmacist Internal Medicine 11/20/22 Karlee Sanders Manufacturing Applications EngineerSpecial Education Preschool Teacher 02/23/24 documented as of this encounter
--- OUTSIDE RECORDS SUMMARY | 2024-12-07 08:20 | XMS_ITS | Encounter Summary ---
Author Organization [facility] Address [address] 7t [place] [address] Care Team Providers Care Outbound Sales Professional Name Role Phone Kiara Resendez MD Primary Care Provider [phone] Paul Macias PharmD Unavailable [phone] Encounter Details Date Type Department Care Team (Latest Contact Info) Description 06/04/2021 Abstract [facility] CONVERSIONS Dental, Provider, DDS Social History Tobacco [...] Description 12/12/2024 11:15 AM EDT Office Visit [facility] MEDICINE [address] [place] [address] Kiara Resendez MD [address] [place] [address] 12/27/2024 9:00 AM EDT Office Visit [facility] ADULT DENTAL [address] [place] [address] Mohamud Samanoaris [address] [place] [address] 01/22/2025 9:30 AM EDT Telemedicine [facility] CHC MED & PEDS [address] [place] [address] Sona Moreira, RN [address] [place] [address] documented as of this encounter Visit Diagnoses Not on filedocumented in this encounter Care Teams Outbound Sales Professional Relationship Specialty Start Date End Date Kiara Resendez MD [address] [place] [address] PCP - General Family Medicine 07/19/18 Paul Macias, AlvinD [address] [place] [address] Pharmacist Internal Medicine 11/20/22 Karlee Sanders Element Winding Machine TenderSafety Person 02/23/24 documented as of this encounter
--- OUTSIDE RECORDS SUMMARY | 2024-12-07 08:20 | XMS_ITS | Encounter Summary ---
Author Organization [employer] Address [address] [place] [address] Care Team Providers Care Claims Manager Name Role Phone Kiara Resendez MD Primary Care Provider [phone] Paul Macias PharmD Unavailable [phone] Reason for Visit * Reason Comments Med Refill Encounter Details Date Type Department Care Team ([facility] st Contact Info) Description 07/16/2023 Refill [facility] ADULT DENTAL [address] [place] [address] Beni Almodovar, BRODY [address] [place] [address] Pain, dental Social History Tobacco Use Types Packs/Day Years [...] encounter Miscellaneous Notes * Telephone Encounter - Mouna Cisneros DDS - 07/16/2023 11:17 AM EST Approving, but needs appt for additional refills. documented in this encounter Plan of Treatment Upcoming Encounters Date Type Department Care Team (Late st Contact Info) Description 12/12/2024 11:15 AM EDT Office Visit [facility] MEDICINE [address] [place] [address] Kiara Resendez MD [address] [place] [address] 12/27/2024 9:00 AM EDT Office Visit [facility] ADULT DENTAL [address] [place] [address] Emeli Samano [address] [place] [address] 01/22/2025 9:30 AM EDT Telemedicine [facility] CHC MED & PEDS [address] [place] [address] Sona Moreira, JEFF [address] [place] [address] documented as of this encounter Goals Goal Patient Goal Type Associated Problems Recent Progress Patient-Stated? Author Blood Pressure < 140/90 Blood Pressure 116/70(2024 1:01 PM EDT) No Paul Macias PharmD Eat a balanced, healthy diet Diet Jess Rowe RN Hemoglobin A1c < 7 Result Component 6.5( 10:15 AM EST) No Paul Macias PharmD Quit using tobacco (cigarettes, smokeless, etc) Tobacco Use No Paul Macias PharmD documented as of this encounter Visit Diagnoses Diagnosis Pain, dental documented in this encounter Additional Health Concerns Assessment Noted Time PHQ-9 Depression Total Score: 8 08/25/19 23 10:52 AM EST documented as of this encounter Care Teams Claims Manager Relationship Specialty Start Date End Date Kiara Resendez MD [address] [place] [address] PCP - General Family Medicine 07/19/18 Paul Macias PharmD [address] [place] [address] Pharmacist Internal Medicine 11/20/22 Karlee Sanders Digital Photo PrinterStamp Clerk 02/23/24 documented as of this encounter
--- OUTSIDE RECORDS SUMMARY | 2024-12-07 08:21 | XMS_ITS | Encounter Summary ---
Author Organization [employer] Address [address] [facility] 7t [place] [address] Care Team Providers Care Hotel Baggage Handler Name Role Phone Kiara Resendez MD Primary Care Provider [phone] Paul Macias PharmD Unavailable [phone] Reason for Visit * Reason Comments Med Refill Encounter Details Date Type Department Care Team ([facility] st Contact Info) Description 07/14/2024 Refill [facility] MEDICINE [address] [place] [address] Kiara Resendez MD [address] [place] [address] Social History Tobacco Use Types Packs/Day Years [...] Description 12/12/2024 11:15 AM EDT Office Visit [facility] MEDICINE [address] [place] [address] Kiara Resendez MD [address] [place] [address] 12/27/2024 9:00 AM EDT Office Visit [facility] ADULT DENTAL [address] [place] [address] Emeli Samano [address] [place] [address] 01/22/2025 9:30 AM EDT Telemedicine [facility] CHC MED & PEDS [address] [place], [place] [phone] Sona Moreira, JEFF [address] [place] [address] documented as of this encounter Goals Goal [...] documented as of this encounter Care Teams Hotel Baggage Handler Relationship Specialty Start Date End Date Kiara Resendez MD [address] [place] [address] PCP - General Family Medicine 07/19/18 Paul Macias PharmD [address] [place] [address] Pharmacist Internal Medicine 11/20/22 Karlee Sanders Contracting Support SpecialistVehicle Cost Engineer 02/23/24 documented as of this encounter
--- OUTSIDE RECORDS SUMMARY | 2024-12-07 08:21 | XMS_ITS | Encounter Summary ---
Author Organization [employer] Address [address] [place] [address] Care Team Providers Care Nurse'S Companion Name Role Phone Kiara Resendez MD Primary Care Provider [phone] Paul Macias PharmD Unavailable [phone] Reason for Visit * Reason Onset Date Comments FYI 04/18/2024 Encounter Details Date Type Department Care Team ([facility] st Contact Info) Description 04/18/2024 Telephone [facility] MEDICINE [address] [place], [place] [phone] Kiara Resendez MD [address] [place], [place] [phone] FYI Social History Tobacco Use Types Packs/Day Years [...] encounter Miscellaneous Notes * Telephone Encounter - Tim Guerrier - 04/18/2024 10:11 AM EDT Tc from pt calling to inform pcp that they're in process getting APPAREL DESIGNER services and agency is faxing over forms for pcp to sign. If any questions you can contact pt at [phone]. documented in this encounter Plan of Treatment Upcoming Encounters Date Type Department Care Team ([facility] st Contact Info) Description 12/12/2024 11:15 AM EDT Office Visit [facility] MEDICINE [address] [place] [address] Kiara Resendez MD [address] [place] [address] 12/27/2024 9:00 AM EDT Office Visit [facility] ADULT DENTAL [address] [place] [address] Emeli Samano [address] [place] [address] 01/22/2025 9:30 AM EDT Telemedicine [facility] CHC MED & PEDS [address] [place] [address] Sona Moreira, JEFF [address] [place] [address] documented as of this encounter Goals Goal [...] documented as of this encounter Care Teams Nurse'S Companion Relationship Specialty Start Date End Date Kiara Resendez MD [address] [place] [address] PCP - General Family Medicine 07/19/18 Paul Macias, AlvinD [address] [place] [address] Pharmacist Internal Medicine 11/20/22 Karlee Sanders Interpreter For The DeafScrap Stripper Hand 02/23/24 documented as of this encounter
--- OUTSIDE RECORDS SUMMARY | 2024-12-07 08:21 | XMS_ITS | Encounter Summary ---
Author Organization [employer] Address [address] [place] [address] Care Team Providers Care Official Court Interpreter Name Role Phone Kiara Resendez MD Primary Care Provider [phone] Paul Macias PharmD Unavailable [phone] Encounter Details Date Type Department Care Team ([facility] Contact Info) Description 11/19/2022 Orders Only [facility] MEDICINE [address] [place], [place] [phone] Kiara Resendez MD [address] [place], [place] [phone] Social History Tobacco Use Types Packs/Day Years [...] suspected to have Coronavirus/COVID-19? No / Unsure 11/13/2022 2:21 PM EDT documented as of this encounter Plan of Treatment Upcoming Encounters Date Type Department Care Team (Late st Contact Info) Description 12/12/2024 11:15 AM EDT Office Visit [facility] MEDICINE [address] [place] [address] Kiara Resendez MD [address] [place] [address] 12/27/2024 9:00 AM EDT Office Visit [facility] ADULT DENTAL [address] [place] [address] Jazmyne, Emeli [address] [place] [address] 01/22/2025 9:30 AM EDT Telemedicine [facility] CHC MED & PEDS [address] [place], [place] [phone] Sona Moreira, JEFF [address] [place], [place] [phone] documented as of this encounter Goals Goal Patient Goal Type Associated Problems Recent Progress Patient-Stated? Author Blood Pressure < 140/90 Blood Pressure 116/70( 025 1:01 PM EDT) No Paul Macias, Sabrina Eat a balanced, healthy diet Diet No Jess Garcia, RN Quit using tobacco (cigarettes, smokeless, etc) Tobacco Use No Paul Macias PharmD documented as of this encounter Procedures Procedure Name Priority Date/Time Associated Diagnosis Comments BI MAMMOGRAM SCREENING TOMOSYNTHESIS BILATERAL Routine 11/19/2022 8:11 AM EDT documented in this encounter Results * BI Mammogram Screening Tomosynthesis Bilateral (11/19/2022 8:11 AM EDT) Anatomical Region Laterality Modality Breast Bilateral Mammography 11/19/2022 8:11 AM EDT Narrative 11/20/2022 4:41 PM EDT ? [facility] [place] ? [address] ?[place] [address] ? Mammography Report ? Signed ? Patient: Paco Eugenio,Lisa ?MR ?? #: [id number] ? : 1960 ?Acct:[id number] ? Age/Sex: 62 / F ?ADM Date: 05/04/23 ? Loc: HO.MAMMO ? Attending Dr: Kiara Resendez MD ? Ordering Physician: Kiara Resendez MD ?Results: 1Negative ? Date of Service: 11/19/22 ?Follow Up: 1 Year From Orig ?? inal Mammogram ? Procedure(s): MM tomosynthesis screening BI ?? Accession Number(s): [id number] ? cc: Kiara Resendez MD ? EXAMINATION: ?? MM SCREENING DIGITAL BREAST TOMOSYNTHESIS, BILATERAL ? CLINICAL INFORMATION: ? Screening. Asymptomatic. ? The lifetime risk of breast cancer based on the Tyrer-Cuzick Model is ?? 5.3%. ? COMPARISON: ?? Mammography: October 10, 2021 and dating back to November 20, 2013. ? TECHNIQUE: ?? Digital breast tomosynthesis is performed in both the craniocaudal and ?? mediolateral oblique views along with computer-aided detection (CAD). ?? Synthesized 2D images are generated from the tomosynthesis. ? FINDINGS: ?? There are scattered areas of fibroglandular density (ACR BI-RADS breast ?? composition Category b). ? There are no significant masses, abnormal calcifications, or other ?? abnormalities. ? MM/MM tomosynthesis screening BI ?? IMPRESSION: ?? No significant changes from prior exam. ? ASSESSMENT: ? BI-RADS 1: Negative ? RECOMMENDATION: ?? Routine annual mammography screening. ? This patient's information was entered into a reminder system with a ?? target due date for their next mammogram. ? Dictated By: ?Jabari Benitez MD ? Signed By: ?<Electronically signed by Jabari Benitez MD in OV> ?05/05/23 1638 ? DD/ 0811 ? TD/TT: ? Tile Ditcher: SK ? Procedure Note Donotuseinterpreter, Image - 01/14/2023 [place] [facility] [address] [place] [address] Mammography Report Signed Patient: Matthias De La Cruz #: [id number] : 2Acct:[id number] Age/Sex: 62 / FADM Date: 11/19/22 Loc: ÁNG[facility] Attending Dr: Kiara Rseendez MD Ordering Physician: Kiara Resendez MDResults: 1Negative Date of Service: 11/19/22Follow Up: 1 Year From Orig inal Mammogram Procedure(s): MM tomosynthesis screening BI Accession Number(s): [id number] cc: Kiara Resendez MD EXAMINATION: MM SCREENING DIGITAL BREAST TOMOSYNTHESIS, BILATERAL CLINICAL INFORMATION: Screening. Asymptomatic. The lifetime risk of breast cancer based on the Tyrer-Cuzick Model is 5.3%. COMPARISON: Mammography: October 10, 2021 and dating back to November 20, 2013. TECHNIQUE: Digital breast tomosynthesis is performed in both the craniocaudal and mediolateral oblique views along with computer-aided detection (CAD). Synthesized 2D images are generated from the tomosynthesis. FINDINGS: There are scattered areas of fibroglandular density (ACR BI-RADS breast composition Category b). There are no significant masses, abnormal calcifications, or other abnormalities. MM/MM tomosynthesis screening BI IMPRESSION: No significant changes from prior exam. ASSESSMENT: BI-RADS 1: Negative RECOMMENDATION: Routine annual mammography screening. This patient's information was entered into a reminder system with a target due date for their next mammogram. Dictated By: Jabari Benitez MD Signed By: <Electronically signed by Jabari Benitez MD in OV> 11/20/22 1638 DD/ 0811 TD/TT: Tile Ditcher: [facility] External Provider IMG BI PROCEDURES Final Result documented in this encounter Visit Diagnoses Not on filedocumented in this encounter Additional Health Concerns Assessment Noted Time PHQ-9 Depression Total Score: 8 08/25/19 23 10:52 AM EST documented as of this encounter Care Teams Official Court Interpreter Relationship Specialty Start Date End Date Kiara Resendez MD [address] [place] [address] PCP - General Family Medicine 07/19/18 Paul Macias, AlvinD [address] [place] [address] Pharmacist Internal Medicine 11/20/22 Karlee Sanders Template MakerFilter Tender 02/23/24 documented as of this encounter
--- OUTSIDE RECORDS SUMMARY | 2024-12-07 08:21 | XMS_ITS | Encounter Summary ---
Author Organization [employer] Address [address] [facility] [place] [place] [address] Care Team Providers Care Tobacco Packing Machine Operator Name Role Phone Kiara Resendez MD Primary Care Provider [phone] Paul Macias PharmD Unavailable Encounter Details Date Type Department Care Team ([facility] Contact Info) Description 07/13/2024 Orders Only [facility] MEDICINE [address], [place] [phone] Kiara Resendez MD [address] [place], [place] [phone] Social History Tobacco Use Types Packs/Day Years [...] this encounter Functional Status * Over the past 2 weeks, how often have you been bothered by any of the following problems? Question Answer Date of Assessment Author Patient Health Questionnaire -2 Score 2 07/13/2024 9:28 AM Maritza Calhoun [place] * Little interest or pleasure in doing things Answer Date of Assessment Author Several days 07/13/2024 9:28 AM Pilar Calhoun [place] * Feeling down, depressed, or hopeless Answer Date of Assessment Author Several days 07/13/2024 9:28 AM Pilar Calhoun [place] * Trouble falling or staying asleep, or sleeping too much Answer Date of Assessment Author More than half the days 07/13/2024 9:28 AM Pilar Acosta [place] * Feeling tired or having little energy Answer Date of Assessment Author Several days 07/13/2024 9:28 AM Pilar Calhoun [place] * Poor appetite or overeating Answer Date of Assessment Author More than half the days 07/13/2024 9:28 AM Pilar Acosta [place] * Feeling bad about yourself - or that you are a failure or have let yourself or your family down Answer Date of Assessment Author More than half the days 07/13/2024 9:28 AM Pilar Acosta [place] * Trouble concentrating on things, such as reading the newspaper or watching television Answer Date of Assessment Author More than half the days 07/13/2024 9:28 AM Pilar Acosta [place] * Moving or speaking so slowly that other people could have noticed? Or the opposite - being so fidgety or restless that you have been moving around a lot more than usual. Answer Date of Assessment Author Not at all 07/13/2024 9:28 AM Pilar Calhoun MA * Thoughts that you would be better off or hurting yourself in some way Answer Date of Assessment Author Not at all 07/13/2024 9:28 AM Pilar Calhoun [place] * Patient Health Questionnaire-9 Score Answer Date of Assessment Author 11 07/13/2024 9:28 AM Pilar Calhoun [place] * How difficult have these problems made it for you to do your work, take care of things at home, or get along with other people? Answer Date of Assessment Author Somewhat difficult 07/13/2024 9:28 AM Pilar Cardenas [place] * Over the last 2 weeks, how often have you been bothered by any of the following problems? Question Answer Date of Assessment Author Feeling nervous, anxious, or on edge 1 07/13/2024 9:28 AM Maritza Calhoun MA Not being able to stop or control worrying 1 07/13/2024 9:28 AM Maritza Calhoun MA Worrying too much about different things 1 07/13/2024 9:28 AM Maritza Calhoun MA Trouble relaxing 1 07/13/2024 9:28 AM Pilar Calhoun [place] Being so restless that it is hard to sit still 1 07/13/2024 9:28 AM Maritza Calhoun MA Becoming easily annoyed or irritable 1 07/13/2024 9:28 AM Maritza Calhoun MA Feeling afraid as if somethi ng awful might happen 1 07/13/2024 9:28 AM Maritza Calhoun [place] GURU-7 Total Score 7 07/13/2024 9:28 AM Pilar Calhoun MA documented as of this encounter Plan of Treatment Upcoming Encounters Date Type Department Care Team (Late st Contact Info) Description 12/12/2024 11:15 AM EDT Office Visit [facility] MEDICINE [address] [place] [address] Kiara Resendez MD [address] [place] [address] 12/27/2024 9:00 AM EDT Office Visit [facility] ADULT DENTAL [address] [place] [address] Jazmyne, Emeli [address] [place] [address] 01/22/2025 9:30 AM EDT Telemedicine [facility] PEDS [address], [place] [phone] Sona Moreira RN [address] [place] [address] documented as of this encounter Goals Goal Patient Goal Type Associated Problems Recent Progress Patient-Stated? Author Blood Pressure < 140/90 Blood Pressure 116/70(2024 1:01 PM EDT) No Paul Macias, PharmLani Eat a balanced, healthy diet Diet Jess Rowe RN Hemoglobin A1c < 7 Result Component 6.5( 10:15 AM EST) No Paul Macias PharmLani Quit using tobacco (cigarettes, smokeless, etc) Tobacco Use No Paul Macias PharmD documented as of this encounter Procedures Procedure Name Priority Date/Time Associated Diagnosis Comments XR CHEST 2 VIEWS Routine 07/27/2024 7:45 AM EST documented in this encounter Results * XR Chest 2 Views (07/27/2024 7:45 AM EST) Anatomical Region Laterality Modality Chest Radiographic Crys ging 07/27/2024 7:45 AM EST Narrative 07/27/2024 7:59 AM EST ? [facility] ?[address] ?[place] [address] ?XRay Report ? Signed ? Patient: Paco Eugenio,Lisa ?MR ?? #: [id number] ? : 1960 ?Acct:[id number] ? Age/Sex: 64 / F ?ADM Date: 07/27/24 ? Loc: HO.ED ? Attending Dr: ? Ordering Physician: Generic ED Physician ?? Date of Service: 07/27/24 ?? Procedure(s): XR chest 2V ?? Accession Number(s): [id number] ? cc: Generic ED Physician; Kiara Resendez MD ? EXAMINATION: ?? XR CHEST ? CLINICAL INFORMATION: ?? cough, sob ? COMPARISON: ?? X-ray dated March 18, 2020 ? TECHNIQUE: ?? 2 views of the chest were obtained. ? FINDINGS: ?? Prominence of the interstitial lung markings with indistinct margins in ?? the perihilar regions. Pulmonary reticular pattern. ?? No hyperinflation. ?? No pleural effusion or pneumothorax. ?? Cardiomediastinal silhouette demonstrates normal size with a round ?? apex. Multilevel thoracic and upper lumbar spondylosis. Degenerative ?? changes in the right acromioclavicular joint. ? XR/XR chest 2V ?? IMPRESSION: ?? Mild interstitial edema in the correct clinical settings. Superimposed ?? acute inflammatory versus infectious processes cannot be excluded. ? Electronically signed by: ??Markus Cook MD ??07/27/2024 07:56 AM ?? EST RP ? Dictated By: ?Markus Monson MD ? Signed By: ?<Electronically signed by Markus Ramey MD in OV> ? 07/27/24 0756 ? DD/ 0745 ? TD/TT: 07/27/24 0753 ? Managing Partner: ? Procedure Note Angela Wen - 07/27/[address] [address] XRay Report Signed Patient: Alexa De La CruzAde #: [id number] : 2Acct:[id number] Age/Sex: 64 / FADM Date: 07/27/24 Loc: HO.ED Attending Dr: Ordering Physician: Jackie ED Physician Date of Service: 07/27/24 Procedure(s): XR chest 2V Accession Number(s): [id number] cc: Generic ED Physician; Kiara Resendez MD EXAMINATION: XR CHEST CLINICAL INFORMATION: cough, sob COMPARISON: X-ray dated March 18, 2020 TECHNIQUE: 2 views of the chest were obtained. FINDINGS: Prominence of the interstitial lung markings with indistinct margins in the perihilar regions. Pulmonary reticular pattern. No hyperinflation. No pleural effusion or pneumothorax. Cardiomediastinal silhouette demonstrates normal size with a round apex. Multilevel thoracic and upper lumbar spondylosis. Degenerative changes in the right acromioclavicular joint. XR/XR chest 2V IMPRESSION: Mild interstitial edema in the correct clinical settings. Superimposed acute inflammatory versus infectious processes cannot be excluded. Electronically signed by: Markus Cook MD 07/27/2024 07:56 AM EST RP Dictated By: Markus Monson MD Signed By: <Electronically signed by Markus Ramey MDin OV> 07/27/24 0756 DD/ 0745 TD/TT: 07/27/24 0753 Managing Partner: [facility] External Provider IMG XR PROCEDURES Final Result documented in this encounter Visit Diagnoses Not on filedocumented in this encounter Additional Health Concerns Assessment Noted Time PHQ-9 Depression Total Score: 11 024 9:28 AM EST documented as of this encounter Care Teams Tobacco Packing Machine Operator Relationship Specialty Start Date End Date Kiara Resendez MD [address] [place] [address] PCP - General Family Medicine 07/19/18 Paul Macias, PharmD [address] [place] [address] Pharmacist Internal Medicine 11/20/22 Karlee [employer] RnScalp Treatment Operator 02/23/24 documented as of this encounter
--- OUTSIDE RECORDS SUMMARY | 2024-12-07 08:21 | XMS_ITS | Clinical Summary ---
Author Organization [employer] Address [address] [facility] [address] [place] [address] Care Team Providers Care Marriage And Family Counselor Name Role Phone Kiara Resendez MD Primary Care Provider [phone] Paul Macias PharmD Unavailable [phone] Allergies No known active allergies Medications * This document contains information received from the source organization and may not represent a complete record from that organization. Nebulizer mis Use it as directed 022 Active mirabegron ER (Myrbetriq) 25 MG 24 hr tablet Take 1 tablet by mouth in the morning. Active TRUEplus Lancets 33[place] [facility] [place] TWICE DAILY 100 each 11 023 Active ondansetron ODT (Zofran-ODT) 4 MG disintegrating tablet TOME JIGNA TABLETA CADA SEIS HORAS CUANDO SEA NECESARIO PARA LAS N USEAS Y V MITOS 023 Active loperamide (Imodium) 2 MG capsule TOME JIGNA C PSULA CADA SEIS HORAS CUANDO SEA NECESARIO LOOSE STOOL 023 Active nicotine polacrilex (Nicorette) 2 MG gum CHEW 1 PIECE IN MOUTH EVERY 2 HOURS NEEDED 023 Active lidocaine (Lidoderm) 5 % patchIndications :Chronic low back pain, unspecified back pain laterality, unspecified whether sciatica present APPLY 1 PATCH TOPICALLY TO SKIN, LEAVE ON FOR 12 HOURS AND OFF FOR 12 HOURS DIRECTED 30 patch 1 023 Active Multiple Vitamin (Multivitamin) tabletIndication s:Vitamin deficiency TAKE 1 TABLET BY MOUTH EVERY MORNING 90 tablet 11 024 Active triamcinolone (Kenalog) 0.1 % creamIndications :Chronic otitis externa of left ear, unspecified type APPLY TO THE AFFECTED AREA(S) TWICE DAILY IN THE MORNING AND AT BEDTIME NEEDED PAIN / SWELLING 30 g 2 024 Active Alcohol Swabs (Alcohol Prep) 70 % pads USE DIRECTED DAILY 100 each 11 024 Active cholecalciferol (Vitamin D-3) 25 MCG tablet TAKE 1 TABLET BY MOUTH EVERY MORNING 90 tablet 3 024 Active Calcium Carb-Cholecalcif jason 600-10 MG-MCG tablet TAKE 1 TABLET BY MOUTH TWICE DAILY IN THE MORNING AND IN THE EVENING 180 tablet 3 024 Active chlorhexidine (Peridex) 0.12 % solution Swish 15 mL morning and night for 1 minute. Spit, do not swallow. Do not eat or drink for 30 minutes following use. 473 mL 024 Active rosuvastatin (Crestor) 20 MG tablet Take 1 tablet (20 mg) by mouth Once per day. 30 tablet 11 024 2024 Active loratadine (Claritin) 10 MG tabletIndication s:Allergic rhinitis, unspecified seasonality, unspecified trigger TAKE 1 TABLET BY MOUTH EVERY DAY 90 tablet 1 025 Active albuterol (2.5 MG/3ML) 0.083% nebulizer solutionIndicati ons:Asthma with COPD ([facility]) INHALE 1 AMPULE USING A NEBULIZER FOUR TIMES DAILY NEEDED SHORTNESS OF BREATH 90 mL 1 025 Active zolpidem (Ambien) 5 MG tablet Take 1 tablet (5 mg) by mouth if needed at bedtime for sleep. 30 tablet 025 Active budesonide-formo terol (Symbicort) 80-4.5 MCG/ACT inhaler Two puffs twice daily, and may use additional 1-2 puff every 4 hours as needed for asthma symptoms. Maximum 12 puffs per day. Rinse mouth with water after use. 1 each 025 Active Aspirin Low Dose 81 MG EC tabletIndication s:Type 2 diabetes mellitus with hyperglycemia, without long-term current use of insulin ([facility]) TAKE 1 TABLET BY MOUTH EVERY MORNING 90 tablet 1 025 Active lisinopril 2.5 MG tablet TAKE 1 TABLET BY MOUTH EVERY EVENING 90 tablet 1 025 Active hydroCHLOROthiaz kyler (HYDRODiuril) 25 MG tablet TAKE 1 TABLET BY MOUTH EVERY MORNING 90 tablet 1 025 Active fenofibrate micronized (LoFibra) 200 MG capsuleIndicatio ns:Mixed hyperlipidemia TAKE 1 CAPSULE BY MOUTH EVERY EVENING 90 capsule 1 025 Active Trulicity 0.75 MG/0.5ML solution auto-injectorInd ications:Type 2 diabetes mellitus with hyperglycemia ([facility]) INJECT ONE PEN (=0.75MG) SUBCUTANEOUSLY ONCE A WEEK DIRECTED 2 mL 025 Active nicotine (Nicoderm, Step 3) 7 MG/24HR patch APPLY 1 PATCH TOPICALLY TO THE SKIN IN THE MORNING. DO NOT SMOKE WHILE USING PATCH. 30 patch 025 Active glucose blood (FREESTYLE LITE) test stripIndications :Type 2 diabetes mellitus with diabetic polyneuropathy, without long-term current use of insulin ([facility]) USE DIRECTED TO TEST BLOOD SUGAR THREE TIMES DAILY 100 strip 11 025 Active omeprazole (PriLOSEC) [address] capsuleIndicatio ns:Gastroesophag eal reflux disease, unspecified whether esophagitis present TAKE 1 CAPSULE BY MOUTH EVERY MORNING BEFORE A MEAL 90 capsule 025 Active cyclobenzaprine (Flexeril) 10 MG tabletIndication s:Fibromyalgia,C hronic low back pain, unspecified back pain laterality, unspecified whether sciatica present TAKE 1 TABLET BY MOUTH TWICE DAILY NEEDED FOR MUSCLE SPASMS 60 tablet 3 025 Active acetaminophen (Tylenol) 500 MG tabletIndication s:Dental root caries Take 1 tablet (500 mg) by mouth every 6 (six) hours if needed for mild pain. 20 tablet 025 Active sertraline (Zoloft) 50 MG tablet TAKE 1 TABLET BY MOUTH EVERY MORNING 30 tablet 2 025 Active QUEtiapine (SEROquel) 50 MG tablet TAKE 1 TABLET BY MOUTH TWICE DAILY IN THE MORNING AND AT BEDTIME 60 tablet 2 025 Active pregabalin (Lyrica) 100 MG capsuleIndicatio ns:Peripheral polyneuropathy TAKE 1 CAPSULE BY MOUTH TWICE DAILY IN THE MORNING AND IN THE EVENING 60 capsule 3 025 Active glipiZIDE (Glucotrol) 5 MG tabletIndication s:Type 2 diabetes mellitus with hyperglycemia, without long-term current use of insulin ([facility]) TAKE 1 TABLET BY MOUTH TWICE DAILY IN THE MORNING AND IN THE EVENING BEFORE MEALS 180 tablet Active metFORMIN XR (Glucophage-XR) 500 MG 24 hr tabletIndication s:Type 2 diabetes mellitus with hyperglycemia, without long-term current use of insulin ([facility]) TAKE 2 TABLETS BY MOUTH TWICE DAILY IN THE MORNING AND EVENING. Do not crush, chew, or split. 360 tablet 3 025 Active alendronate (Fosamax) 70 MG tabletIndication s:Osteoporosis, unspecified osteoporosis type, unspecified pathological fracture presence Take 1 tablet (70 mg) by mouth every 7 (seven) days. Take in the morning with a full glass of water, on an empty stomach, and do not take anything else by mouth or lie down for the next 30 min. 4 tablet 11 025 2025 Active zolpidem (Ambien) 5 MG tablet TAKE 1 TABLET BY MOUTH AT BEDTIME NEEDED FOR SLEEP 30 tablet 025 Active LORazepam (Ativan) 1 MG tablet Take 1 tablet (1 mg) by mouth 2 times daily. Do not start before November 15, 2024. 60 tablet 025 Active zolpidem (Ambien) 5 MG tablet TAKE 1 TABLET BY MOUTH DAILY AT BEDTIME NEEDED FOR SLEEP 30 tablet 025 2024 Discontinued LORazepam (Ativan) 1 MG tablet TAKE 1 TABLET BY MOUTH TWICE DAILY 60 tablet 025 2024 Discontinued(R eorder (will not trigger notification to Pharmacy)) Active Problems Patient Care Coordination No te Formatting of this note migh t be different from the original. [id number] Shikha Reyes C3/CM Marilu Stafford RN Problem Noted Date Diagnosed Date Long-term current use of opiate analgesic 2024 Dental root caries 09/14/2024 Symptomatic apical periodontitis 07/17/2024 Dental plaque 06/26/2024 Edentulous maxilla 09/03/2023 Otitis externa 08/19/2023 Assessment & Plan (08/19/2023 9:14 AM EST): - recurrent - local reaction to Ciprodex - cortisporin otic - avoid irritation - refer back to ENT Ill-fitting dentures 06/18/2023 Periodontal disease 04/14/2023 Chronic painful diabetic neuropathy 02/19/2023 Mass of right wrist 02/19/2023 Lumbar spondylosis 02/19/2023 History of adenomatous polyp of colon 02/19/2023 Arthritis of carpometacarpal (CMC) joint of righ t thumb 02/19/2023 De Quervain's tenosynovitis, right 02/19/2023 Lumbar radiculopathy 02/19/2023 shelter (current) use of oral hypoglycemic kathya gs 11/19/2022 Long-term current use of inj ectable noninsulin antidiabetic medication 11/19/2022 Dental caries 10/19/2022 Type 2 diabetes mellitus 07/26/2022 Assessment & Plan (10/02/2024 11:51 AM EDT): -A1C 6.5% on 08/21/24, 6.4% on 07/13/24, stable -Continue metformin 1000mg BID -Continue Glipizide 5mg with meals BID -Continue dulaglutide 0.75 mg weekly. Will titrate down and off glipizide to avoid hypoglycemia in near future -previously on Farxiga 5 mg daily but discontinued due to side effects. -Check blood glucose every day -Emphasized the importance of lifestyle modifications. -Pt advised to reduce sugar in coffee or use Splenda. -Last eye exam: Aug 2022 -Last foot exam: Jun 2024 -Last microalbumin test: 07/13/24 no microalbuminuria -Last lipid profile: 07/13/24 -Last dental exam: [facility], has dental issues -Immunizations: Up to date Assessment & Plan (08/21/2024 9:32 PM EST): -A1C 6.5% on 08/21/24, 6.4% on 07/13/24, stable -Continue metformin 1000mg BID -Continue Glipizide 5mg with meals BID -Continue dulaglutide 0.75 mg weekly. Will titrate down and off glipizide to avoid hypoglycemia in near future -previously on Farxiga 5 mg daily but discontinued due to side effects. -Check blood glucose every day -Emphasized the importance of lifestyle modifications. -Pt advised to reduce sugar in coffee or use Splenda. -Last eye exam: Aug 2022 -Last foot exam: Jun 2024 -Last microalbumin test: 07/13/24 no microalbuminuria -Last lipid profile: 07/13/24 -Last dental exam: [facility], has dental issues -Immunizations: Up to date Assessment & Plan (07/20/2024 5:21 AM EST): -A1C 6.4% on 07/13/24, stable -Continue metformin 1000mg BID -Continue Glipizide 5mg with meals BID -Continue dulaglutide 0.75 mg weekly. Will titrate down and off glipizide to avoid hypoglycemia in near future -previously on Farxiga 5 mg daily but discontinued due to side effects. -Check blood glucose every day -Emphasized the importance of lifestyle modifications. -Pt advised to reduce sugar in coffee or use Splenda. -Last eye exam: Aug 2022 -Last foot exam: 08/25/22 -Last microalbumin test: 07/01/23 UACR 17.4 -Last lipid profile: 07/01/23 TC 143; TG 185; HDL 23; LDL 83 -Last dental exam: [facility], has dental issues -Immunizations: Up to date Assessment & Plan (08/19/2023 5:55 AM EST): -A1C 6.3% on 07/01/23, 6.9% on 05/31/23, improving -Continue metformin 1000mg BID -Continue Glipizide 5mg with meals BID -Continue dulaglutide 0.75 mg weekly. Will titrate down and off glipizide to avoid hypoglycemia in near future -previously on Farxiga 5 mg daily but discontinued due to side effects. -Check blood glucose every day -Emphasized the importance of lifestyle modifications. -Pt advised to reduce sugar in coffee or use Splenda. -Last eye exam: Aug 2022 -Last foot exam: 08/25/22 -Last microalbumin test: 07/01/23 UACR 17.4 -Last lipid profile: 07/01/23 TC 143; TG 185; HDL 23; LDL 83 -Last dental exam: [facility], has dental issues -Immunizations: Up to date Assessment & Plan (06/04/2023 12:41 PM EST): -A1C 6.9% on 05/31/23, improving -Continue metformin 1000mg BID -Continue Glipizide 5mg with meals, BID -Continue dulaglutide 0.75 mg weekly. Will titrate down and off glipizide to avoid hypoglycemia in near future -previously on Farxiga 5 mg daily but discontinued due to side effects. -Check blood glucose every day -Emphasized the importance of lifestyle modifications. -Pt advised to reduce sugar in coffee or use Splenda. -Last eye exam: Aug 2022 -Last foot exam: 08/25/22 -Last microalbumin test: 10/06/21 UACR 10 -Last lipid profile: 08/28/22 TC 203; TG 326; HDL 30; LDL 126 -Last dental exam: [facility], has dental issues -Immunizations: Up to date Assessment & Plan (11/17/2022 12:12 PM EDT): -A1C 8% on 11/09/22 today, worsening -Continue metformin 1000mg BID -Continue Glipizide 5mg with meals, BID -previously on Trulicity, which was discontinued because she was not taking other medications; today she states she would like to try again. Will restart Trulicity 0.75 mg weekly. Will titrate down and off glipizide to avoid hypoglycemia in near future -previously on Farxiga 5 mg daily but discontinued due to side effects. -Check blood glucose every day -Emphasized the importance of lifestyle modifications. -Pt advised to reduce sugar in coffee or use Splenda. -Last eye exam: Aug 2022 -Last foot exam: 08/25/22 -Last microalbumin test: 10/06/21 UACR 10 -Last FLP:10/06/21 TC 131; TG 363; HDL 30; LDL 57 -Last dental exam: [facility], has dental issues -Immunizations: Up to date Assessment & Plan (08/25/2022 11:34 AM EST): -A1C 7.8% on 07/06/22, improving -Continue metformin 1000mg BID -Consider adding Glipizide 5mg with meals, BID -previously on Trulicity, which was discontinued due to side effect -previously on Farxiga 5 mg daily but discontinued due to side effects. -Check blood glucose every day -Emphasized the importance of lifestyle modifications. -Pt advised to reduce sugar in coffee or use Splenda. -Last eye exam: 08/21/22 and anticipating appt on 08/28/22 -Last foot exam: 08/25/22 -Last microalbumin test: 10/06/21 UACR 10 -Last FLP:10/06/21 TC 131; TG 363; HDL 30; LDL 57 -Last dental exam: [facility], has dental issues -Immunizations: Up to date Pulmonary nodules 07/26/2022 Assessment & Plan (10/02/2024 11:50 AM EDT): -CT scan on 10/12/20, stable subcentral pulmonary nodule, no new suspicious nodules noted -CT scan on 07/01/21 : stable 7mm right upper lobe, lung nodule -CT Scan on 08/10/22; stable nodues, no new suspicious nodules noted -patient is still smoking; will update CT scan Assessment & Plan (08/21/2024 9:24 PM EST): -CT scan on 10/12/20, stable subcentral pulmonary nodule, no new suspicious nodules noted -CT scan on 07/01/21 : stable 7mm right upper lobe, lung nodule -CT Scan on 08/10/22; stable nodues, no new suspicious nodules noted -patient is still smoking; will update CT scan Assessment & Plan (07/20/2024 5:28 AM EST): -CT scan on 10/12/20, stable subcentral pulmonary nodule, no new suspicious nodules noted -CT scan on 07/01/21 : stable 7mm right upper lobe, lung nodule -CT Scan on 08/10/22; stable nodues, no new suspicious nodules noted -patient is still smoking; will update CT scan Assessment & Plan (05/31/2023 12:05 PM EST): -CT scan on 10/12/20, stable subcentral pulmonary nodule, no new suspicious nodules noted -CT scan on 07/01/21 : stable 7mm right upper lobe, lung nodule -CT Scan on 08/10/22; stable nodues, no new suspicious nodules noted Assessment & Plan (09/05/2022 3:39 AM EST): -CT scan on 10/12/20, stable subcentral pulmonary nodule, no new suspicious nodules noted -CT scan on 07/01/21 : stable 7mm right upper lobe, lung nodule -CT Scan on 08/10/22; stable nodues, no new suspicious nodules noted Assessment & Plan (07/26/2022 1:20 PM EST): -CT scan on 10/12/20, stable subcentral pulmonary nodule, no new suspicious nodules noted -CT scan on 07/01/21 : stable 7mm right upper lobe, lung nodule Will update CT scan Carpal tunnel syndrome 06/16/2022 Assessment & Plan (09/05/2022 3:37 AM EST): -s/p right carpal tunnel release in 2012 -wear wrist brace and activity modification -judicious use of NSAIDs and pregabalin Assessment & Plan (07/26/2022 12:53 PM EST): -s/p right carpal tunnel release in 2012 Panic disorder 06/16/2022 Assessment & Plan (10/02/2024 11:51 AM EDT): Will refer to behavioral health service Assessment & Plan (08/25/2022 11:08 AM EST): Previously on Clonazepam and switched to Panzram. Intermittent explosive disorder 06/16/2022 Assessment & Plan (07/20/2024 5:23 AM EST): -Deep breathing exercise Assessment & Plan (09/05/2022 3:30 AM EST): -Deep breathing exercise Assessment & Plan (07/26/2022 1:25 PM EST): -Deep breathing exercise -tried today in the clinic Prolapse of female genital organs 06/16/2022 Assessment & Plan (11/19/2022 9:57 AM EDT): -Followed by [facility] Assessment & Plan (08/25/2022 11:09 AM EST): -Followed by [facility] Assessment & Plan (07/26/2022 1:02 PM EST): -Followed by [facility] Recurrent major depressive episodes, moderate Assessment & Plan (12/01/2024 12:23 PM EDT): During [facility] Consult Lisa presenting with depressed mood, Tearful, hopelessness, irritable mood, loss of interests/pleasure , sense of isolation/loneliness , changes in sleep difficulty falling asleep, fatigue/loss of energy, inappropriate/excessive guilt , difficulty concentrating, indecisiveness; for a period of 6-12 mo, for most or all symptoms in the context of family issues and housing. Lisa felt emotionally overwhelmed due to having different personal stressors. She states having interpersonal relationships with a neighbor which is triggering sxs described above. Her medical condition (fibromyalgia and osteoporosis) has being worsening as pt continues to experience pain. Explored coping strategies to use: journaling, challenging negative thoughts and limit toxic relationships. Pt has upcoming appt with Steven Dominique on 12/13. Assessment & Plan (10/16/2024 1:49 PM EDT): During [facility] Consult Lisa presenting with depressed mood, Tearful, hopelessness, irritable mood, loss of interests/pleasure , sense of isolation/loneliness , change in appetite or weight reduce appetite, changes in sleep difficulty falling asleep and difficulty staying asleep , psychomotor retardation, fatigue/loss of energy, inappropriate/excessive guilt , difficulty concentrating, indecisiveness and Recurrent panic attacks (abrupt surge of intese bo or discomfort that reaches peak within minutes and during which time the following occur (4 or more) palpitations, trembling/shaking, sensation of shortness of breath/smothering, feeling of choking, Chest pain/discomfort, dizzy/unsteady/light-headed/faint, numbness/tingling, fear of dying; for a period of 18+ mo, for most or all symptoms in the context of relationship issues and housing. Pt reported experiencing presentation of sxs for awhile now. Unable to cope with her anxiety due to stressors. Pt tried several times to quit smoking cigarettes. However, gets triggered by external factors and people around her who are heavy tobacco users. Pt plans to move out to a different apartment and start Nicotine patches. Pt has a high motivation to address this problem. Her sense of yuki is identified as strength and her daughter and zoroastrian community as protective factors. Pt has an upcoming appointment with Steven Dominique for medication management. clinician will provide additional support for current MH needs. Pt agreed with plan. Assessment & Plan (10/02/2024 11:52 AM EDT): -PHQ9 score 11 and GAD7 score 7 on 07/20/24. Patient seems to be depressed and stressed. -Previous [facility] provider: Dr. Rosales in [facility], pt has a therapist. Upcoming appointment with a new prescriber. -Dx is unclear. Possible bipolar. Concurrent intermittent explosive disorder / impulse control disorder. [facility] providers also assigned [place] 2 Dx. -Continue current medications. Discussed about judicious use. -Discussed about side effects of zolpidem, and reassured that it was being discontinued for long-term benefits. -Will refer to a new service Assessment & Plan (07/20/2024 5:26 AM EST): -PHQ9 score 11 and GAD7 score 7 today. Patient seems to be depressed and stressed. -Previous [facility] provider: Dr. Rosales in [facility], pt has a therapist. Upcoming appointment with a new prescriber. -Dx is unclear. Possible bipolar. Concurrent intermittent explosive disorder / impulse control disorder. [facility] providers also assigned [place] 2 Dx. -Continue current medications. Discussed about judicious use. -Discussed about side effects of zolpidem, and reassured that it was being discontinued for long-term benefits. Assessment & Plan (08/19/2023 9:15 AM EST): -Current [facility] provider: Dr. Rosales in [facility], pt has a therapist -Dx is unclear. Possible bipolar. Concurrent intermittent explosive disorder / impulse control disorder. [facility] providers also assigned [place] 2 Dx. -Continue current medications prescribed by psychiatrist. -Encouraged to speak with her therapist regarding to her medications and the reason why she disagrees with her psychiatrist. -Discussed about side effects of zolpidem, and reassured that it was being discontinued for long-term benefits. Assessment & Plan (05/31/2023 12:11 PM EST): -Current [facility] provider: Dr. Rosales in [facility], pt has a therapist -Dx is unclear. Possible bipolar. Concurrent intermittent explosive disorder / impulse control disorder. [facility] providers also assigned [place] 2 Dx. -Continue current medications prescribed by psychiatrist. -Encouraged to speak with her therapist regarding to her medications and the reason why she disagrees with her psychiatrist. -Discussed about side effects of zolpidem, and reassured that it was being discontinued for long-term benefits. Assessment & Plan (08/25/2022 11:10 AM EST): -Current [facility] provider: Dr. Rosales in [facility], pt has a therapist -Dx is unclear. Possible bipolar. Concurrent intermittent explosive disorder / impulse control disorder. [facility] providers also assigned [place] 2 Dx. -Continue current medications prescribed by psychiatrist. -Encouraged to speak with her therapist regarding to her medications and the reason why she disagrees with her psychiatrist. -Discussed about side effects of zolpidem, and reassured that it was being discontinued for long-term benefits. Assessment & Plan (07/26/2022 1:24 PM EST): -Current [facility] provider: Dr. Rosales in [facility], pt has a therapist -Dx is unclear. Possible bipolar. Concurrent intermittent explosive disorder / impulse control disorder. [facility] providers also assigned [place] 2 Dx. -Continue current medications prescribed by psychiatrist. -Encouraged to speak with her therapist regarding to her medications and the reason why she disagrees with her psychiatrist. -Discussed about side effects of zolpidem, and reassured that it was being discontinued for long-term benefits. SI (sacroiliac) joint dysfunction 06/16/2022 Assessment & Plan (05/31/2023 12:07 PM EST): [facility] -MRI on 12/10/21: Lumbar Spondylosis, SIJ Dysfunction, sacrococcygeal disorder. -Pt received SI Joint Injection on 01/13/22 - Assessment & Plan (11/19/2022 10:00 AM EDT): [facility] -MRI on 12/10/21: Lumbar Spondylosis, SIJ Dysfunction, sacrococcygeal disorder. -Pt received SI Joint Injection on 01/13/22 -Pt received MAGNO in Aug 2022 Assessment & Plan (08/25/2022 11:11 AM EST): [facility] -MRI on 12/10/21: Lumbar Spondylosis, SIJ Dysfunction, sacrococcygeal disorder. -Pt received SI Joint Injection on 01/13/22 -Pt had f/u on 02/12/22, is being scheduled MAGNO. Urinary incontinence, mixed 06/16/2022 Assessment & Plan (07/20/2024 5:19 AM EST): -Followed by [facility] -continue mribegron as prescribed Assessment & Plan (11/09/2022 2:30 PM EDT): -Followed by [facility] -continue mribegron as prescribed Assessment & Plan (08/25/2022 11:12 AM EST): -Followed by [facility] -continue mribegron as prescribed Assessment & Plan (07/26/2022 1:02 PM EST): -Followed by [facility] -continue mribegron as prescribed Essential hypertension 05/09/2015 Assessment & Plan (10/02/2024 11:50 AM EDT): -Goal BP < 140/90 per JNC-8, < 130/80 per ACC/AHA. -BP usually within acceptable range -Advised to check BP at home. -Encouraged to work on life style modifications and continue current medication. -Current medications: HCTZ 25 mg daily; lisinopril 2.5 mg daily. -referred to [facility] Assessment & Plan (08/21/2024 9:26 PM EST): -Goal BP < 140/90 per JNC-8, < 130/80 per ACC/AHA. -BP usually within acceptable range -Advised to check BP at home. -Encouraged to work on life style modifications and continue current medication. -Current medications: HCTZ 25 mg daily; lisinopril 2.5 mg daily. -referred to [facility] Assessment & Plan (07/20/2024 5:19 AM EST): -Goal BP < 140/90 per JNC-8, < 130/80 per ACC/AHA. -BP usually within acceptable range -Advised to check BP at home. -Encouraged to work on life style modifications and continue current medication. -Current medications: HCTZ 25 mg daily; lisinopril 2.5 mg daily. -referred to [facility] Assessment & Plan (08/19/2023 5:49 AM EST): -Goal BP < 140/90 per JNC-8, < 130/80 per ACC/AHA. -BP usually within acceptable range, but elevated today. Possibly due to being upset. -Advised to check BP at home. -Encouraged to work on life style modifications and continue current medication. -Current medications: HCTZ 25 mg daily; lisinopril 2.5 mg daily. -referred to [facility] Assessment & Plan (05/31/2023 12:06 PM EST): -Goal BP < 140/90 per JNC-8, < 130/80 per ACC/AHA. -BP usually within acceptable range, but elevated today. Possibly due to being upset. -Advised to check BP at home. -Encouraged to work on life style modifications and continue current medication. -Current medications: HCTZ 25 mg daily; lisinopril 2.5 mg daily. -referred to [facility] Assessment & Plan (11/09/2022 2:28 PM EDT): -Goal BP < 140/90 per JNC-8, < 130/80 per ACC/AHA. -BP usually within acceptable range, but elevated today. Possibly due to being upset. -Advised to check BP at home. -Encouraged to work on life style modifications and continue current medication. -Current medications: HCTZ 25 mg daily; lisinopril 2.5 mg daily. -refer to [facility] Assessment & Plan (08/25/2022 11:02 AM EST): -Goal BP < 140/90 per JNC-8, < 130/80 per ACC/AHA. -BP usually within acceptable range, but elevated today. Possibly due to being upset. -Advised to check BP at home. -Encouraged to work on life style modifications and continue current medication. -Current medications: HCTZ 25 mg daily; lisinopril 2.5 mg daily. -refer to [facility] Assessment & Plan (07/26/2022 12:59 PM EST): -Goal BP < 140/90 per JNC-8, < 130/80 per ACC/AHA. -BP usually within acceptable range, but elevated today. Possibly due to being upset. -Advised to check BP at home. -Encouraged to work on life style modifications and continue current medication. -Current medications: HCTZ 25 mg daily; lisinopril 2.5 mg daily. -refer to [facility] Tobacco use 05/09/2015 Assessment & Plan (10/02/2024 8:59 PM EDT): -Previously prescribed nicotine replacement -Continue working on smoking cessation -Nicotine replacement has been prescribed, yet patient states she will not be able to stop smoking unless her partner stop smoking in their home - [facility] Assessment & Plan (08/21/2024 9:33 PM EST): -Previously prescribed nicotine replacement -Continue working on smoking cessation -Nicotine replacement has been prescribed, yet patient states she will not be able to stop smoking unless her partner stop smoking in their home Assessment & Plan (07/20/2024 5:23 AM EST): -Previously prescribed nicotine replacement -Continue working on smoking cessation -Nicotine replacement as requested by the pt Assessment & Plan (11/19/2022 10:02 AM EDT): -Previously prescribed nicotine replacement -Continue working on smoking cessation -Nicotine replacement as requested by the pt Assessment & Plan (08/25/2022 11:11 AM EST): -Previously prescribed nicotine replacement -Continue working on smoking cessation Assessment & Plan (07/26/2022 1:19 PM EST): -Previously prescribed nicotine replacement -Continue working on smoking cessation Tubular adenoma of colon 05/29/2014 Assessment & Plan (11/19/2022 9:53 AM EDT): -Most recent colonoscopy on 05/08/22. Dr. Becker. Normal. However, she has Hx tubular adenoma and had a poor prep, so repeat colonoscopy in 5 years was recommended. Assessment & Plan (08/25/2022 11:11 AM EST): -Most recent colonoscopy on 05/08/22. Normal. Assessment & Plan (07/26/2022 1:00 PM EST): -Most recent colonoscopy on 05/08/22. Normal. Angle-closure glaucoma 09/07/2012 Assessment & Plan (09/05/2022 3:42 AM EST): -followed by public health representative -contraindication for anticholinergics (medications for OAB and psych; not on LAMA) Asthma with COPD 09/07/2012 Assessment & Plan (10/02/2024 11:50 AM EDT): -Severe exacerbation 09/25/21, with SARS Cov-2 -Most recent severe exacerbation on 07/27/24-07/28/24, [facility] [place] A -Frequency of exacerbation 4-5 times per year. -No Hx intubation -Hx pneumonia -Start budesonide / formoterol (Symbicort) for both maintenance and quick relief. -Emphasized the importance of adherence to medication and smoking cessation. Assessment & Plan (08/21/2024 9:26 PM EST): -Severe exacerbation 09/25/21, with SARS Cov-2 -Most recent severe exacerbation on 07/27/24-07/28/24, [facility] [place] with influenza A -Frequency of exacerbation 4-5 times per year. -No Hx intubation -Hx pneumonia -Start budesonide / formoterol (Symbicort) for both maintenance and quick relief. -Emphasized the importance of adherence to medication and smoking cessation. Assessment & Plan (07/20/2024 5:18 AM EST): - Last severe exacerbation 09/25/21, with SARS Cov-2 -Frequency of exacerbation 4-5 times per year. -No Hx intubation -Hx pneumonia -Current medications --Maintenance: mometasone (Asmanex) 100 mcg Two puffs bid --Rescue: Albuterol HFA and neb prn --Emphasized the importance of adherence to medication and smoking cessation. Assessment & Plan (05/31/2023 12:05 PM EST): - Last severe exacerbation 09/25/21, with SARS Cov-2 -Frequency of exacerbation 4-5 times per year. -No Hx intubation -Hx pneumonia -Current medications --Maintenance: Flovent HFA 110 mcg Two puffs bid --Rescue: Albuterol HFA and neb prn --Emphasized the importance of adherence to medication and smoking cessation. Assessment & Plan (11/19/2022 9:41 AM EDT): - Last severe exacerbation 09/25/21, with SARS Cov-2 -Frequency of exacerbation 4-5 times per year. -No Hx intubation -Hx pneumonia -Current medications --Maintenance: Flovent HFA 110 mcg Two puffs bid --Rescue: Albuterol HFA and neb prn --Emphasized the importance of adherence to medication and smoking cessation. Assessment & Plan (08/25/2022 11:01 AM EST): -Most recent exacerbation 09/25/21, COVID - POSITIVE. -Frequency of exacerbation 4-5 times per year. -No Hx intubation -Hx pneumonia -Current medications --Maintenance: Flovent HFA 110 mcg Two puffs bid --Rescue: Albuterol HFA and neb prn --Emphasized the importance of adherence to medication and smoking cessation. Assessment & Plan (07/26/2022 12:55 PM EST): -Most recent exacerbation 09/25/21, COVID - POSITIVE. -Frequency of exacerbation 4-5 times per year. -No Hx intubation -Hx pneumonia -Current medications --Maintenance: Flovent HFA 110 mcg Two puffs bid --Rescue: Albuterol HFA and neb prn --Emphasized the importance of adherence to medication and smoking cessation. Mixed hyperlipidemia 04/22/2012 Assessment & Plan (08/21/2024 9:34 PM EST): -Significant hypertriglyceridemia. -Medications: Rosuvastatin mg qhs; Fish oil 4 g daily; fenofibrate 200 mg daily -Last lipid profile: 07/01/23 total cholesterol 143; triglyceride 185; HDL 23; LDL 83 -Continue working on lifestyle modification -Continue current medication Assessment & Plan (07/20/2024 5:23 AM EST): -Significant hypertriglyceridemia. -Medications: Simvastatin 40 mg qhs; Fish oil 4 g daily; fenofibrate 200 mg daily -Last lipid profile: 07/01/23 total cholesterol 143; triglyceride 185; HDL 23; LDL 83 -Continue working on lifestyle modification -Continue current medication Assessment & Plan (08/19/2023 9:16 AM EST): -Significant hypertriglyceridemia. -Medications: Simvastatin 40 mg qhs; Fish oil 4 g daily; fenofibrate 200 mg daily -Last lipid profile: 07/01/23 total cholesterol 143; triglyceride 185; HDL 23; LDL 83 -Continue working on lifestyle modification -Continue current medication Assessment & Plan (05/31/2023 12:10 PM EST): -Significant hypertriglyceridemia. -Medications: Simvastatin 40 mg qhs; Fish oil 4 g daily; fenofibrate 200 mg daily -Last lipid profile: 08/28/22 TC 203; TG 326; HDL 30; LDL 126 Assessment & Plan (08/25/2022 11:02 AM EST): -Significant hypertriglyceridemia. -Medications: Simvastatin 40 mg qhs; Fish oil 4 g daily; fenofibrate 200 mg daily -Last lipid profile: 10/06/21 TC 131; TG 363; HDL 30; LDL 57 Assessment & Plan (07/26/2022 1:16 PM EST): -Significant hypertriglyceridemia. -Medications: Simvastatin 40 mg qhs; Fish oil 4 g daily; fenofibrate 200 mg daily -Last lipid profile: 10/06/21 TC 131; TG 363; HDL 30; LDL 57 Peripheral neuropathy 04/22/2012 Assessment & Plan (05/31/2023 12:05 PM EST): -judicious use of pregabalin -write script for diabetic footwear Assessment & Plan (09/05/2022 3:36 AM EST): -judicious use of pregabalin -write script for diabetic footwear Assessment & Plan (07/26/2022 12:53 PM EST): -judicious use of pregabalin Chronic low back pain 01/22/2012 Assessment & Plan (08/21/2024 9:35 PM EST): -[facility] -MRI on 12/10/21: Lumbar Spondylosis, SIJ Dysfunction, sacrococygeal disorder. -Pt receioved SI Joint Injection on 01/13/22 -Pt received MAGNO in Aug 2022. Assessment & Plan (11/19/2022 10:01 AM EDT): -[facility] -MRI on 12/10/21: Lumbar Spondylosis, SIJ Dysfunction, sacrococygeal disorder. -Pt receioved SI Joint Injection on 01/13/22 -Pt received MAGNO in Aug 2022. -Pt requests to be referred back to [facility] pain management. Assessment & Plan (08/25/2022 11:02 AM EST): -[facility] -MRI on 12/10/21: Lumbar Spondylosis, SIJ Dysfunction, sacrococygeal disorder. -Pt receioved SI Joint Injection on 01/13/22 -Pt had f/u on 02/12/22, is being scheduled MAGNO. Assessment & Plan (07/26/2022 1:13 PM EST): -[facility] -MRI on 12/10/21: Lumbar Spondylosis, SIJ Dysfunction, sacrococygeal disorder. -Pt receioved SI Joint Injection on 01/13/22 -Pt had f/u on 02/12/22, is being scheduled MAGNO. Fibromyalgia 01/22/2012 Assessment & Plan (08/21/2024 9:29 PM EST): - previously Followed [place] [facility], seen on 11/17/21 -Continue Lidoderm -Continue judicious use of Lyrica 150 mg bid -Continue APAP to 500-1000 mg q8h prn. -Continue judicious use of NSIADs / LOYA-2 inhibitor -She has tried muscle relaxants including cyclobenzaprine and tizanidine, which were ineffective -She has tried Cymbalta, prescribed by her psychiatrist, but it was switched back to her current medications -Previously tried gabapentin and amitriptyline, which were ineffective. -Received acupuncture in summer 2017, recommended to restart. Pt declined -Discontinued tramadol in 2017. -Script for TENS done -Advised to stay physically active. Assessment & Plan (07/20/2024 5:20 AM EST): Followed by [facility], seen on 11/17/21 -Continue Lidoderm -Continue judicious use of Lyrica 150 mg bid -Continue APAP to 500-1000 mg q8h prn. -Continue judicious use of NSIADs / LOYA-2 inhibitor -She has tried muscle relaxants including cyclobenzaprine and tizanidine, which were ineffective -She has tried Cymbalta, prescribed by her psychiatrist, but it was switched back to her current medications -Previously tried gabapentin and amitriptyline, which were ineffective. -Received acupuncture in summer 2017, recommended to restart. Pt declined -Discontinued tramadol in 2017. -Script for TENS sent to [facility] again in January 2020, but she needed to try TENS with PT. She now completed 2nd round of PT and tried TENS with PT. Will check its status -Advised to stay physically active. Assessment & Plan (05/31/2023 12:07 PM EST): Followed by [facility], seen on 11/17/21 -Continue Lidoderm -Continue judicious use of Lyrica 150 mg bid -Continue APAP to 500-1000 mg q8h prn. -Continue judicious use of NSIADs / LOYA-2 inhibitor -She has tried muscle relaxants including cyclobenzaprine and tizanidine, which were ineffective -She has tried Cymbalta, prescribed by her psychiatrist, but it was switched back to her current medications -Previously tried gabapentin and amitriptyline, which were ineffective. -Received acupuncture in summer 2017, recommended to restart. Pt declined -Discontinued tramadol in 2017. -Script for TENS sent to [facility] again in January 2020, but she needed to try TENS with PT. She now completed 2nd round of PT and tried TENS with PT. Will check its status -Advised to stay physically active. Assessment & Plan (11/09/2022 2:29 PM EDT): Followed by [facility], seen on 11/17/21 -Continue Lidoderm -Continue judicious use of Lyrica 150 mg bid -Continue APAP to 500-1000 mg q8h prn. -Continue judicious use of NSIADs / LOYA-2 inhibitor -She has tried muscle relaxants including cyclobenzaprine and tizanidine, which were ineffective -She has tried Cymbalta, prescribed by her psychiatrist, but it was switched back to her current medications -Previously tried gabapentin and amitriptyline, which were ineffective. -Received acupuncture in summer 2017, recommended to restart. Pt declined -Discontinued tramadol in 2017. -Script for TENS sent to [facility] again in January 2020, but she needed to try TENS with PT. She now completed 2nd round of PT and tried TENS with PT. Will check its status -Advised to stay physically active. Assessment & Plan (08/25/2022 11:03 AM EST): Followed by [facility], seen on 11/17/21 -Continue Lidoderm -Continue judicious use of Lyrica 150 mg bid -Continue APAP to 500-1000 mg q8h prn. -Continue judicious use of NSIADs / LOYA-2 inhibitor -She has tried muscle relaxants including cyclobenzaprine and tizanidine, which were ineffective -She has tried Cymbalta, prescribed by her psychiatrist, but it was switched back to her current medications -Previously tried gabapentin and amitriptyline, which were ineffective. -Received acupuncture in summer 2017, recommended to restart. Pt declined -Discontinued tramadol in 2017. -Script for TENS sent to [facility] again in January 2020, but she needed to try TENS with PT. She now completed 2nd round of PT and tried TENS with PT. Will check its status -Advised to stay physically active. Assessment & Plan (07/26/2022 1:07 PM EST): Followed by [facility], seen on 11/17/21 -Continue Lidoderm -Continue judicious use of Lyrica 150 mg bid -Continue APAP to 500-1000 mg q8h prn. -Continue judicious use of NSIADs / LOYA-2 inhibitor -She has tried muscle relaxants including cyclobenzaprine and tizanidine, which were ineffective -She has tried Cymbalta, prescribed by her psychiatrist, but it was switched back to her current medications -Previously tried gabapentin and amitriptyline, which were ineffective. -Received acupuncture in summer 2017, recommended to restart. Pt declined -Discontinued tramadol in 2017. -Script for TENS sent to [facility] again in January 2020, but she needed to try TENS with PT. She now completed 2nd round of PT and tried TENS with PT. Will check its status -Advised to stay physically active. Osteoporosis 01/12/2012 Assessment & Plan (10/02/2024 8:58 PM EDT): -DEXA scan in 04/07 showed the lowest T score - 1.4. -DEXA scan in Aug 2023 showed the lowest T-score - 3.1 (worsened) -History of osteoporosis status post alendronate treatment for 5 years. -continue Vitamin D -continue alendronate (restarted in Jun 2024) -continue weight bearing exercise Assessment & Plan (08/21/2024 9:28 PM EST): -DEXA scan in 04/07 showed the lowest T score - 1.4. -DEXA scan in Aug 2023 showed the lowest T-score - 3.1 (worsened) -History of osteoporosis status post alendronate treatment for 5 years. -continue Vitamin D -continue alendronate (restarted in Jun 2024) -continue weight bearing exercise Assessment & Plan (07/13/2024 9:47 AM EST): -DEXA scan in 04/07 showed the lowest T score - 1.4. -DEXA scan in Aug 2023 showed the lowest T-score - 3.1 (worsened) -History of osteoporosis status post alendronate treatment for 5 years. -continue Vitamin D -restart alendronate after confirming with dentist -continue weight bearing exercise Assessment & Plan (08/19/2023 5:56 AM EST): -DEXA scan in 04/07 showed the lowest T score - 1.4. -History of osteoporosis status post alendronate treatment for 5 years. -continue Vitamin D -continue weight bearing exercise -Repeat DEXA in 2022 Assessment & Plan (11/19/2022 9:58 AM EDT): -DEXA scan in 04/07 showed the lowest T score - 1.4. -History of osteoporosis status post alendronate treatment for 5 years. -continue Vitamin D -continue weight bearing exercise -Repeat DEXA in 2022 Assessment & Plan (09/05/2022 3:48 AM EST): -DEXA scan in 04/07 showed the lowest T score - 1.4. -History of osteoporosis status post alendronate treatment for 5 years. -continue Vitamin D -continue weight bearing exercise -Repeat DEXA in 2022 Resolved Problems Problem Noted Date Diagnosed Date Resolved Date Diabetes mellitus, type 2 09/07/2012 Encounters * This document contains information received from the source organization and may not represent a complete record from that organization. Date Type Department Care Team Description 11/13/2024 10:30 AM EDT Telemedicine [facility] [address] [place] [address] Sona Moreira RN Long-term current use of opiate analgesic 11/13/2024 Refill [facility] [address] [place] [address] Sona Moreira RN 11/13/[address] [facility] [address] [place] [address] Kiara Resendez MD 11/13/2024 Telephone [facility] [address] [place] [address] Sona Moreira RN 11/13/2024 Travel 10/26/2024 1:30 PM EDT Office Visit [facility] [address] [facility] [place] [address] Beni Almodovar DDS Ill-fitting dentures (Primary Dx) 10/25/2024 8:30 AM EDT Office Visit [facility] [address] [place] [address] Beni Almodovar DDS Edentulous maxilla (Primary Dx); Ill-fitting dentures 10/18/2024 9:30 AM EDT Office Visit [facility] [address] [facility] [place] [address] Beni Almodovar DDS Dental caries (Primary Dx) 10/16/2024 Travel 10/16/[address] [facility] [address] [place] [address] Kiara Resendez MD Med Refill 10/16/[address] [facility] [address] [place] [address] Carlene Myrick MD 10/02/2024 11:30 AM EDT Office Visit [facility] [address] [place] [address] [place] [address] Kiara Resendez MD Type 2 diabetes mellitus with diabetic polyneuropathy, without long-term current use of insulin ([facility]) (Primary Dx); Essential hypertension; Pulmonary nodules; Asthma with COPD ([facility]); Tobacco use; Recurrent major depressive episodes, moderate ([facility]); Panic disorder; Osteoporosis, unspecified osteoporosis type, unspecified pathological fracture presence 10/02/2024 Travel 09/29/2024 Population Health Risk Score [facility] () [address] [phone] Provider, Population Health Generic 09/29/[address] [facility] [address] [place] [address] Kiara Resendez MD Type 2 diabetes mellitus with hyperglycemia, without long-term current use of insulin ([facility]) 09/29/[address] [facility] [address] [place] [address] Yoselin Grady ANP Type 2 diabetes mellitus with hyperglycemia, without long-term current use of insulin ([facility]) 09/26/[address] [facility] [address] [place] [address] Kiara Resendez MD CHART PREP 09/24/[address] [facility] [address] [place] [address] Kiara Resendez MD Peripheral polyneuropathy 09/14/2024 9:30 AM EST Office Visit [facility] [address] [place] [address] Beni Almodovar DDS Dental root caries (Primary Dx) 09/11/[address] [facility] [address] [place] [address] Kiara Resendez MD Fibromyalgia; Chronic low back pain, unspecified back pain laterality, unspecified whether sciatica present 09/10/[address] [facility] [address] [place] [address] Kiara Resendez MD Gastroesophageal reflux disease, unspecified whether esophagitis present from Last 3 Months Immunizations Immunization Administration Dates Next Due Hep B, adult 02/23/2018,10/28/2015,05/29/2014 Influenza Injectable Quadriv alant Preservative Free IIV4 MDCK 04/12/2019,04/26/2018,05/17/2017 Influenza injectable quadriv alent preservative free 04/28/2023,04/06/2022,04/19/2021,04/06 Influenza, IIV3, injectable 05/07/2014,0 03/27/2011,06/04/2010,03/26 Influenza, Split (incl. kaleb fied surface antigen) 03/31/2013,04/22/2012 Influenza, seasonal, injecta ble, preservative free 08/21/2024 Moderna Covid-19 Vaccine 12+ 11/25/2021, 06/18/2021,10/23/2020,09/25 Pfizer Covid-19 Vaccine 12+ 08/21/2024, 4 Pneumococcal Conjugate PCV 20 04/06/2022 Pneumococcal Polysaccharide PPSV23 05/29/2014, TD (adult), 2 Lf tetanus tox oid, preservative free, adsorbed 11/25/2021,03/26/2009 Tdap 11/12/2011 Zoster, Recombinant 06/08/2022,04/06/2022 Social History Tobacco Use Types Packs/Day Years Used Date Smoking Tobacco: Every Day Cigarettes 0.3 48 Passive Smoke Exposure: Current Smokeless Tobacco: Never Tobacco Cessation:Ready to Q uit: Not Asked; Counseling Given: Not Answered Comments:Light tobacco smoker 3 Cigarettes per day while currently trying to quit Alcohol Use Standard Drinks/Week Comments Never 0 (1 standard drink = 0.6 oz pur e alcohol) Depression Answer Date Recorded Patient Health Questionnaire-9 Score 10 11/28/2024 Patient Health Questionnaire-9 Score 10 11/28/2024 Last PHQ-9: Questionnaire Data Not on file 0 11/28/2024 Housing Stability Answer Date Recorded What is [...] Answer Date Recorded Patient Health Questionnaire-2 Score 4 11/28/2024 Internet Access Answer Date Recorded Internet Access [...] file Not on file Not on file Last Filed Vital Signs Vital Sign Reading Time Taken Comments Blood Pressure 116/70 10/26/2024 1:01 PM EDT Pulse 80 10/26/2024 1:01 PM EDT Temperature 36.3 ??C (97.3 ??F) 10/02/2024 11:24 AM E DT Respiratory Rate 19 10/02/2024 11:24 AM EDT Oxygen Saturation 94% 10/02/2024 11:24 AM EDT Inhaled Oxygen Concentration - - Weight 70.6 kg (155 lb 9.6 oz) 10/02/2024 11:24 AM EDT Height 151 cm (4' 11.45 ) 07/13/2024 9:26 AM EST Body Mass Index 30.95 07/13/2024 9:26 AM EST Plan of Treatment Upcoming Encounters Date Type Department Care Team (Late st Contact Info) Description 12/12/2024 11:15 AM EDT Office Visit [facility] [address] [place] [address] Kiara Resendez MD [address] [place] [address] 12/27/2024 9:00 AM EDT Office Visit [facility] [address] [place] [address] Emeli Samano [address] [place] [address] 01/22/2025 9:[address] [facility] [address] [place] [address] Sona Moreira, JEFF [address] [place] [address] Health Maintenance Due Date Last Done Comments CT Colonography 1962 FIT DNA/Cologuard 1962 FIT 1962 FOBT 1962 Sigmoidoscopy 1962 Disability Screening 1962 Eye Exam 1972 Pap Smear 1983 HPV/Cotest 1992 RSV Patients and Patients Aged 60 years or older (1 - Risk 60-74 years 1-dose series) 2022 Dental Oral Exam 12/26/2024 06/26/2024 Dental Prophylaxis 12/26/2024 06/26/2024, 12/14/2023 Diabetes: Hemoglobin A1C 02/18/2025 025, 07/13/2024, 07/01/2023, Additional history exists Dental X-Ray: Bitewings 06/27/2025 06/26/2024 Alcohol/Substance Use Screening 07/13/2025 07/13/2024 Diabetes: Foot Exam 07/13/2025 07/13/2024, 05/31/2023, 05/31/2023, Additional history exists Diabetes: Urine Protein Screening 07/13/2025 07/13/2024, 07/01/2023, 10/06/2021, Additional history exists Lipid Panel 07/13/2025 07/13/2024, 06/18, 08/28/2022, Additional history exists SDOH Screening 07/13/2025 07/13/2024 Tobacco Screening 10/26/2025 10/26/2024 Depression Screening 11/28/2025 11/28/2024, 11/29/19 Mammogram 12/01/2025 12/02/2023, 10/2022, 10/10/2021, Additional history exists Dental X-Ray: Full Mouth 07/18/2027 07/17/2024 Colonoscopy 01/03/2029 01/03/2019 Colorectal Cancer Screening 01/03/2029 DTaP/Tdap/Td Vaccines (3 - Td or Tdap) 11/26/2031 11/25/2021, 11/12/2011, 03/26/2009 Hepatitis B Vaccines Completed 02/23/2018, 10/28/2015, 05/29/2014 Pneumococcal Vaccine: 50+ Years Completed 04/06/2022, 05/29/2014, 03/26/2009 Zoster Vaccines Completed 06/08/2022, 04/06/2022 COVID-19 Vaccine Completed 08/21/2024, , 11/25/2021, Additional history exists Influenza Vaccine Completed 08/21/2024, , 04/06/2022, Additional history exists Cervical Cancer Screening Discontinued HIB Vaccines Aged Out No longer eligi ble based on patient's age to complete this topic HIV Screening Discontinued HPV Vaccines Aged Out No longer eligi ble based on patient's age to complete this topic Hepatitis A Vaccines Aged Out No long er eligible based on patient's age to complete this topic Hepatitis C Screening Discontinued IPV Vaccines Aged Out No longer eligi ble based on patient's age to complete this topic Meningococcal B Vaccine Aged Out No l onger eligible based on patient's age to complete this topic Meningococcal Vaccine Aged Out No carlotta gerardo eligible based on patient's age to complete this topic RSV under 20 months Aged Out No longe r eligible based on patient's age to complete this topic Rotavirus Vaccines Aged Out No longer eligible based on patient's age to complete this topic Goals Goal Patient Goal Type Associated Problems Recent Progress Patient-Stated? Author Blood Pressure < 140/90 Blood Pressure 116/70(2024 1:01 PM EDT) No Paul Macias, PharmD Eat a balanced, healthy diet Diet No Jess Garcia, RN Hemoglobin A1c < 7 Result Component 6.5( 10:15 AM EST) No Paul Macias, Sabrina Quit using tobacco (cigarettes, smokeless, etc) Tobacco Use No Paul Macias, Sabrina Procedures Procedure Name Priority Date/Time Associated Diagnosis Comments DENTURE ADJUSTMENT Routine 10/26/2024 1: 30 PM EDT DENTURE ADJUSTMENT < 6 MONTHS Routine 10/25/2024 8:30 AM EDT CASE PRESENTATION, DETAILED AND EXTENSIVE TREATMENT PLANNING Routine 10/18/2024 9:30 AM EDT 21 B(V) RESIN-BASED COMPOSITE - 1 SURF, POSTERIOR Routine 10/18/2024 9:30 AM EDT 20 L(V) RESIN-BASED COMPOSITE - 1 SURF, POSTERIOR Routine 10/18/2024 9:30 AM EDT CASE PRESENTATION, DETAILED AND EXTENSIVE TREATMENT PLANNING Routine 09/14/2024 9:30 AM EST 28 EXTRACTION, ERUPTED TOOTH OR EXPOSED ROOT (ELEVATION/FORCEPS REMOVAL) Routine 09/14/2024 9:30 AM EST POCT GLYCOSYLATED HEMOGLOBIN (HGB A1C) Routine 08/21/2024 10:15 AM EST Type 2 diabetes mellitus with diabetic polyneuropathy, without long-term current use of insulin ([facility]) PANORAMIC RADIOGRAPHIC IMAGE Routine 07/17/2024 9:15 AM EST ALBUMIN, RANDOM URINE W/CREATININE Routine 07/13/2024 9:49 AM EST Essential hypertension Type 2 diabetes mellitus with diabetic polyneuropathy, without long-term current use of insulin ([facility]) LIPID PANEL WITH REFLEX TO DIRECT LDL Routine 07/13/2024 9:49 AM EST Type 2 diabetes mellitus with diabetic polyneuropathy, without long-term current use of insulin ([facility]) Mixed hyperlipidemia PROPHYLAXIS - ADULT Routine 06/26/2024 1 0:00 AM EST Periodontal disease Edentulous maxilla Dental plaque Dental caries BITEWINGS - 2 RADIOGRAPHIC IMAGES Routine 06/26/2024 10:00 AM EST Periodontal disease Edentulous maxilla Dental plaque Dental caries PERIODIC ORAL EVALUATION - ESTABLISHED PATIENT Routine 06/26/2024 10:00 AM EST BI MAMMOGRAM SCREENING TOMOSYNTHESIS BILATERAL Routine 12/02/2023 8:40 AM EDT HM COLONOSCOPY Routine 01/03/2019 from Last 3 Months or Most Recently Relevant to Health Maintenance Results * (ABNORMAL) POCT glycosylated hemoglobin (Hgb A1c) (08/21/2024 10:15 AM EST) Hemoglobin A1C 6.5(A) 4.0 - 6.0 % QC Media Lot # [id number] Lot# Expiration Date Blood Capillary blood specimen / Unknown 08/21/2024 10:15 AM EST Kiara Resendez MD POINT OF CARE TEST ENTER/EDIT OR DERABLES Final Result * (ABNORMAL) Lipid Panel with Reflex to Direct LDL (07/13/2024 9:49 AM EST) Triglycerides 286(H) <150 mg/dL [facility] Comment:Desirable Triglyceri de: less than 150 mg/dLBorderline High Triglyceride 150-199 mg/dLHigh Triglyceride: 200-499 mg/dLVery High Triglyceride: greater than or equal to 5OO mg/dL Cholesterol 141 <200 mg/dL [facility] Comment:Desirable Cholestero l: less than 200 mg/dLBorderline High Cholesterol: 200-239 mg/dLHigh Cholesterol: greater than 239 mg/dL LDL Cholesterol Calculated 55 <100 mg/dL [facility] Comment:Desirable LDL: less than 100 mg/dLNear Optimal/Above Optimal LDL: 110- 129 mg/dLBorderline High LDL: 130-159 mg/dLHigh LDL: 160-189 mg/dLVery High LDL: greater than or equal to 190 mg/dL HDL Cholesterol 29(L) >40 mg/dL [facility] Comment:Desirable HDL: great er than 40 mg/dL Note: This HDL assay may give artificially low results in patients with liver disease. Blood 07/13/2024 9:49 AM EST 07/13/2024 11:07 AM EST Kiara Resendez MD LAB BLOOD ORDERABLES Final Resul t [facility] [address] [place] [address] [phone] * Albumin, Random Urine W/Creatinine (07/13/2024 9:49 AM EST) Creatinine, Urine 39.31 mg/dL [facility] Microalbumin Urine <5.0 mg/L [facility] Microalbum Creatinine Ratio Ur TNP <30 ug/mg cr [facility] Comment:Unable to calculate albumin/creatinine ratio due to lowmicroalbumin or creatinine result. Urine 07/13/2024 9:49 AM EST 07/13/2024 11:35 AM EST us Kiara Resendez MD LAB URINE ORDERABLES Final Resul t Performing Organization Address City/[facility] Co de Phone Number [facility] [address] [place] [address] [phone] * BI Mammogram Screening Tomosynthesis Bilateral (12/02/2023 8:40 AM EDT) Anatomical Region Laterality Modality Breast Bilateral Mammography 12/02/2023 8:40 AM EDT Narrative 12/27/2023 1:51 PM EDT ? [facility] [place] ? [address] ?[place] [address] ? Mammography Report ? Signed ? Patient: Lisa De La Cruz ?MR ?? #: [id number] ? : 1960 ?Acct:[id number] ? Age/Sex: 63 / F ?ADM Date: 05/16/24 ? Loc: HO.MAMMO ? Attending Dr: Kiara Resendez MD ? Ordering Physician: Kiara Resendez MD ?Results: 1Negative ? Date of Service: 12/02/23 ?Follow Up: 1 Year From Orig ?? inal Mammogram ? Procedure(s): MM tomosynthesis screening BI ?? Accession Number(s): [id number] ? cc: Kiara Resendez MD ? EXAMINATION: [...] signed by Loy Townsend MD in OV> ?/05/11 1347 ? DD/ 0840 ? TD/TT: ? Water And Gas Helper: ? Procedure Note Donotreglainterpreter, Image - [facility] [address] [place] [address] Mammography Report Signed Patient: Matthias De La Cruz #: [id number] : 2Acct:[id number] Age/Sex: 63 / FADM Date: 12/02/23 Loc: ÁNGEL Attending Dr: Kiara Resendez MD Ordering Physician: Kiara Resendez MDResults: 1Negative Date of Service: 12/02/23Follow Up: 1 Year From Orig inal Mammogram Procedure(s): MM tomosynthesis screening BI Accession Number(s): [id number] cc: Kiara Resendez MD EXAMINATION: MM SCREENING [...] in OV> 12/27/23 1347 DD/ 0840 TD/TT: Water And Gas Helper: Kiara Resendez MD IMG BI PROCEDURES Final Result * Hm Colonoscopy (01/03/2019) Colonoscopy performed Historical Provider HEALTH MAINTENANCE Final Result from Last 3 Months or Most Recently Relevant to Health Maintenance Insurance [facility] C3 [facility] [employer] STAND ADULT Care Teams Marriage And Family Counselor Relationship Specialty Start Date End Date Kiara Resendez MD [address] [place] [address] PCP - General Family Medicine 07/19/18 Paul Macias, PharmD [address] [place] [address] Pharmacist Internal Medicine 11/20/22 Karlee Sanders Roving HaulerQuartz Miner 02/23/24
--- OUTSIDE RECORDS SUMMARY | 2024-12-07 08:21 | XMS_ITS | Encounter Summary ---
Author Organization [employer] Address [address] [facility] [address] [place] [address] Care Team Providers Care Field Counsel Name Role Phone Kiara Resendez MD Primary Care Provider [phone] Paul Macias PharmD Unavailable [phone] Reason for Visit * Reason Comments Med Refill Encounter Details Date Type Department Care Team (Late st Contact Info) Description 01/04/2023 Refill [facility] [address] [place] [address] Carlene Myrick MD [address] [place] [address] Chronic low back pain, unspecified back pain laterality, unspecified whether sciatica present Social History Tobacco Use Types Packs/Day Years [...] Recorded In the last 10 days, have gissell jackson been in contact with someone who was confirmed or suspected to have Coronavirus/COVID-19? No / Unsure 12/28/2022 9:22 AM EDT documented as of this encounter Plan of Treatment Upcoming Encounters Date Type Department Care Team (Late st Contact Info) Description 12/12/2024 11:15 AM EDT Office Visit [facility] [address] [place] [address] Kiara Resendez MD [address] [place] [address] 12/27/2024 9:00 AM EDT Office Visit [facility] [address] [place] [address] Emeli Samano [address] [place] [address] 01/22/2025 9:30 AM EDT Telemedicine [facility] [address] [place], [place] [phone] Sona Moreira RN [address] [place] [address] documented as of this encounter Goals Goal [...] as of this encounter Visit Diagnoses Diagnosis Chronic low back pain, unspecified back pain laterality, unspecified whether sciatica present documented in this encounter Additional Health Concerns Assessment Noted Time PHQ-9 Depression Total Score: 8 08/25/19 23 10:52 AM EST documented as of this encounter Care Teams Field Counsel Relationship Specialty Start Date End Date Kiara Resendez MD [address] [place], [place] PCP - General Family Medicine 07/19/18 Paul Macias, PharmD [address] [place] [address] Pharmacist Internal Medicine 11/20/22 Karlee Sanders Advertising Dispatch ClerkMapping Editor 02/23/24 documented as of this encounter
--- OUTSIDE RECORDS SUMMARY | 2024-12-07 08:21 | XMS_ITS | Encounter Summary ---
Author Organization [employer] Address [address] [facility] 7t [place] [address] Care Team Providers Care Chore Tender Name Role Phone Kiara Resendez MD Primary Care Provider [phone] Paul Macias PharmD Unavailable [phone] Reason for Visit * Reason Comments Med Refill Encounter Details Date Type Department Care Team (Late st Contact Info) Description 01/05/2023 Refill [facility] [address] [place] [address] Carlene Myrick MD [address] [place] [address] Chronic low back pain, unspecified back pain [...] 11:15 AM EDT Office Visit [facility] [address] [place] [address] Kiara Resendez MD [address] [place] [address] 12/27/2024 9:00 AM EDT Office Visit [facility] [address] [place] [address] Emeli Samano [address] [place] [address] 01/22/2025 9:30 AM EDT Telemedicine [facility] [address] [place], [place] [phone] Sona Moreira RN [address] [place] [address] documented as of this encounter Goals Goal [...] documented as of this encounter Care Teams Chore Tender Relationship Specialty Start Date End Date Kiara Resendez MD [address] [place], [place] PCP - General Family Medicine 07/19/18 Paul Macias, PharmD [address] [place] [address] Pharmacist Internal Medicine 11/20/22 Karlee Sanders Sed Special Education TeacherSenior Maintenance Machinist 02/23/24 documented as of this encounter
--- OUTSIDE RECORDS SUMMARY | 2024-12-07 08:21 | XMS_ITS | Encounter Summary ---
Author Organization [employer] Address [address] [facility] [address] [place] [address] Care Team Providers Care Urogynaecologist Name Role Phone Kiara Resendez MD Primary Care Provider [phone] Paul Macias PharmD Unavailable [phone] Reason for Visit * Reason Comments Med Refill Encounter Details Date Type Department Care Team ([facility] st Contact Info) Description 12/30/2022 Refill [facility] [address] [place], [place] [phone] Kiara Resendez MD [address] [place] [address] Social History Tobacco Use Types Packs/Day Years [...] Description 12/12/2024 11:15 AM EDT Office Visit [facility] [address] [place] [address] Kiara Resendez MD [address] [place] [address] 12/27/2024 9:00 AM EDT Office Visit [facility] [address] [place] [address] Mohamud Samanoaris [address] [place] [address] 01/22/2025 9:30 AM EDT Telemedicine [facility] [address] [place], [place] [phone] Sona Moreira, JEFF [address] [place] [address] documented as of this encounter Goals Goal Patient Goal Type Associated Problems Recent Progress Patient-Stated? Author Blood Pressure < 140/90 Blood Pressure 116/70( 025 1:01 PM EDT) No Paul Macias PharmD [...] documented as of this encounter Care Teams Urogynaecologist Relationship Specialty Start Date End Date Kiara Resendez MD [address] [place] [address] PCP - General Family Medicine 07/19/18 Paul Macias PharmD [address] [place] [address] Pharmacist Internal Medicine 11/20/22 Karlee Sanders Pipe InstallerManager Night 02/23/24 documented as of this encounter
== END 2024-12-07 08:13 | disposition home or self-care (01) ==
LOC: HO.MAMMO 08:12
PROVIDERS: PCP Family Medicine; Visit Provider Family Medicine
DX: Z12.31 Encounter for screening mammogram for malignant neoplasm of breast (principal)
CPT/HCPCS: 77063; 77067

== ENCOUNTER → 2024-12-07 08:45 | Outpatient (BNV) | payer MEDICAID, SELFPAY | PROVIDERS: PCP Family Medicine; Visit Provider Internal Medicine | DX: Z12.31 Encounter for screening mammogram for malignant neoplasm of breast (principal) | CPT/HCPCS: 77063; 77067 ==

== ENCOUNTER 2025-05-09 12:43 | Outpatient (REF) | payer MEDICAID, SELFPAY ==
--- NOTE | 2025-05-09 | EMG_ITS ---
Chief complaint:?R20.0 Paresthesia of skin Reason for referral: Pain in both wrists and hands Referred by:?Kiara Resendez Procedure done: Bilateral upper extremities NCS/EMG Bilateral median and ulnar motor studies were performed bilateral median and ulnar mixed sensory studies were performed at radial sensory studies were performed. Bilateral median and ulnar 2nd digit ortho sensory studies were performed. EMG needle examination was performed. Right median motor distal latency was moderately prolonged. Mixed median sensory studies revealed moderately delayed distal latency on the left side and mild on the right side. Median sensory conduction velocity was slow on the left side. Impression: [id number]-kh-lyidkgip left and mild right median neuropathy across carpal tunnel [place] [address], 2 Extremities MTDD
== END 2025-05-09 12:44 | disposition home or self-care (01) ==
LOC: HO.NEURO 12:43
PROVIDERS: PCP Family Medicine; Visit Provider Family Medicine
DX: R22.31 Localized swelling, mass and lump, right upper limb (principal); R20.0 Anesthesia of skin; R20.2 Paresthesia of skin; M25.531 Pain in right wrist; M25.532 Pain in left wrist; M79.641 Pain in right hand; M79.642 Pain in left hand
CPT/HCPCS: 95886; 95913

== ENCOUNTER → 2025-05-09 13:00 | Outpatient (BNV) | payer MEDICAID, SELFPAY | PROVIDERS: PCP Family Medicine; Visit Provider Psychiatry & Neurology Neurology | DX: G56.03 Carpal tunnel syndrome, bilateral upper limbs (principal) | CPT/HCPCS: 95886; 95913 ==

== ENCOUNTER 2025-06-08 09:05 | Outpatient (AMB) | payer MEDICAID, SELFPAY ==
--- NOTE | 2025-06-08 09:20 | MHC.OFFVIS ---
Vital Signs 06/08/25 09:21 Height 5 ft 3 in Weight 154 lb BMI 27.3 Intake Visit Reasons: NewProb-Bilat hand EMG review Intake Note: Lisa is a 65 year old right hand dominant Citizen Of [place] speaking female who presents today for a New Problem Visit complaining of Bilateral Hand Numbness & Tingling status post Right Carpal Tunnel Release by Dr. Aleman, 11/09/12. Patient has a history of Type 2 Diabetes Mellitus, Right De Quervain's tenosynovitis, Right Hand Tendinitis of Flexor Tendon, Right Volar Radial Wrist Mass, and Right CMC Arthritis. She was last evaluated by Dr. Stewart on 06/30/22 where she was given a Right De Quervain's injection. Patient reports today her left middle and ring finger are constantly numbed and tingly. She is having a hard time sleeping due to this. She usually wakes up with her left hand very stiff and swollen. She also complains of left trigger thumb. She has not tried injections, OT, or hand braces. She is interested in surgery. Impression 05/09/25: Ndqm-tn-msflolyu left and mild right median neuropathy across carpal tunnel Vacuum System Tester Required: No Allergies No Known Allergies (No Known Allergies*) Allergy (Verified 06/08/25 09:24) HPI HPI NewProb-Bilat hand EMG review: Details: Lisa is a 65 year old right hand dominant Citizen Of [place] speaking female who presents today for a New Problem Visit complaining of Bilateral Hand Numbness & Tingling status post Right Carpal Tunnel Release by Dr. Aleman, 11/09/12. Patient has a history of Type 2 Diabetes Mellitus, Right De Quervain's tenosynovitis, Right Hand Tendinitis of Flexor Tendon, Right Volar Radial Wrist Mass, and Right CMC Arthritis. She was last evaluated by Dr. Stewart on 06/30/22 where she was given a Right De Quervain's injection. Patient reports today her left middle and ring finger are constantly numbed and tingly. She is having a hard time sleeping due to this. She usually wakes up with her left hand very stiff and swollen. She also complains of left trigger thumb. She has not tried injections, OT, or hand braces. She is interested in surgery. Patient denies any numbness or tingling in the right hand. Impression 05/09/25: Qisi-wy-shoutxax left and mild right median neuropathy across carpal tunnel [facility] Medical History (Updated 06/08/25 @ 12:52 by ABBY Hughes) Nicotine dependence, cigarettes, uncomplicated History of adenomatous polyp of colon Low back pain Asthma Hyperlipemia Osteoporosis Fibromyalgia Diabetes HTN (hypertension) Surgical History (Updated 04/09/25 @ 09:47 by Bouchra Howard PA-C) History of colonoscopy History of carpal tunnel surgery of right wrist History of excision of lesion History of hysterectomy with bilateral oophorectomy Family History Sister Lung cancer Social History (Updated 06/08/25 @ 09:50 by Bouchra Howard PA-C) Household Members: Family Housing: Apartment Do you presently have visiting nurse or other home services: Yes (FUR BLOWER OPERATOR) Alcohol intake: never Patient Tobacco Use Status: Current everyday Tobacco user Tobacco use type: Cigarette Cigarettes Per Day: 6 Years Smoked: (onset 15yo, 1/2ppd x 50yrs, 25pyh) service: No Review of Systems Const All systems reviewed & are unremarkable except as noted in HPI and below Physical Exam Vital Signs: BMI result Body Mass Index 27.3 Extrem Other: Neuro: Decreased sensation in the left middle and ring fingers. Normal sensation to all other digits in the left hand today. Normal sensation in the tips of all digits of the right hand today. No thenar or intrinsic wasting. Good APB muscle firing and good finger cross. Vascular: Capillary refill brisk. ROM: Patient can make a fist and extend all their digits. Skin: No lacerations or abrasions noted. General: No ecchymosis. No erythema or evidence of infection. Assessment & Plan Assessment & Plan (1) Left carpal tunnel syndrome: Code(s): G56.02 - Carpal tunnel syndrome, left upper limb Category: Medical Plan 1. Left carpal tunnel syndrome Symptoms intermittent, daily, worse at night I educated the patient about the condition. I discussed both operative and nonoperative treatment options. The patient would like to proceed with surgery. The risks and benefits of operative treatment were discussed with the patient and the patient wishes to proceed with surgery. These risks include, but are not limited to, risk of damage to blood vessels, nerves, tendons, infection, recurrence, incomplete relief of preoperative symptoms, persistent pain, possible need for further surgery, and the risks associated with regional blocks and/or anesthesia. Plan is to take the patient to the operating room at some point in the next few weeks for the following procedures: 1. Left carpal tunnel release under local All of the preoperative paperwork including the consent was discussed today. All of the patient's questions were answered in the clinic today. The patient understands that they will be in contact with our security field supervisor to discuss scheduling their procedure. Patient reports diabetes, last A1c 7.8 Denies blood thinners, asthma, heart issues, lung issues, kidney issues, or current smoking. Coding Level of Care Code Est Pt Level 4 (25983) Diagnoses Left carpal tunnel syndrome G56.02
[2025-06-08 09:21] VITALS: BMI 27.3
--- OUTSIDE RECORDS SUMMARY | 2025-06-08 09:24 | XMS_ITS | Encounter Summary ---
Author Organization [employer] Address [address] [facility] 7t [place] [address] Care Team Providers Care Gas Station Supervisor Name Role Phone Kiara Resendez MD Primary Care Provider Paul Macias PharmD Unavailable [phone] Encounter Details Date Type Department Care Team (Latest Contact Info) Description 12/26/[address] [facility] CONVERSIONS Dental, Provider, DDS Social History [...] Upcoming Encounters Date Type Department Care Team ( st Contact Info) Description 06/29/2025 9:00 AM EST Clinical Support [facility] MEDICINE [address] [place] [address] Sona Moreira RN [address] [place] [address] 07/27/2025 9:00 AM EST Office Visit [facility] ADULT DENTAL [address] [place] [address] Beni Almodovar DDS [address] [place] [address] 09/04/2025 9:30 AM EST Office Visit [facility] ADULT DENTAL [address] [place] [address] Addie Scanlon 09/24/2025 1:30 PM EDT Office Visit [facility] [address] [place], [place] [phone] Glenny Pineda, OD [address] [place] [address] documented as of this encounter Visit Diagnoses Not on filedocumented in this encounter Care Teams Gas Station Supervisor Relationship Specialty Start Date End Date Kiara Resendez MD [address] [place] [address] PCP - General Family Medicine 07/19/18 Paul Macias, AlvinD [address] [place] [address] Pharmacist Internal Medicine 11/20/22 Karlee Sanders Health TeacherMushroom Laborer 02/23/24 documented as of this encounter
--- OUTSIDE RECORDS SUMMARY | 2025-06-08 09:24 | XMS_ITS | Encounter Summary ---
Author Organization [employer] Address [address] [facility] 7t [place] [address] Care Team Providers Care Hr Consultant Name Role Phone Kiara Resendez MD Primary Care Provider [phone] Paul Macias PharmD Unavailable [phone] Encounter Details Date Type Department Care Team (Latest Contact Info) Description 06/04/2021 Abstract [facility] CONVERSIONS Dental, Provider, DDS Social History [...] Care Team (Late st Contact Info) Description 06/29/2025 9:00 AM EST Clinical Support [facility] MEDICINE [address] [place] [address] Sona Moreira RN [address] [place] [address] 07/27/2025 9:00 AM EST Office Visit [facility] ADULT DENTAL [address] [place] [address] Beni Almodovar DDS [address] [place] [address] 09/04/2025 9:30 AM EST Office Visit [facility] ADULT DENTAL [address] [place] [address] Addie Scanlon 09/24/2025 1:30 PM EDT Office Visit [facility] [address] [place] [address] Glenny Pineda, OD [address] [place] [address] documented as of this encounter Visit Diagnoses Not on filedocumented in this encounter Care Teams Hr Consultant Relationship Specialty Start Date End Date Kiara Resendez MD [address] [place] [address] PCP - General Family Medicine 07/19/18 Paul Macias, AlvinD [address] [place] [address] [id number] Pharmacist Internal Medicine 11/20/22 Karlee Sanders Biochemistry TechnologistInstitution Librarian 02/23/24 documented as of this encounter
--- OUTSIDE RECORDS SUMMARY | 2025-06-08 09:24 | XMS_ITS | Encounter Summary ---
Author Organization [employer] Address [address] [facility] 7t [place] [address] Care Team Providers Care Excavator Backhoe Operator Name Role Phone Kiara Resendez MD Primary Care Provider [phone] Paul Macias PharmD Unavailable [phone] Reason for Visit * Reason Comments Med Refill Encounter Details Date Type Department Care Team (Late st Contact Info) Description 07/16/2023 Refill [facility] ADULT DENTAL [address] [place] [address] Beni Almodovar, DDS [address] [place] [address] Pain, dental Social History Tobacco Use Types [...] Description 06/29/2025 9:00 AM EST Clinical Support [facility] MEDICINE [address] [place] [address] Sona Moreira, RN [address] [place] [address] 07/27/2025 9:00 AM EST Office Visit [facility] ADULT DENTAL [address] [place] [address] Beni Almodovar DDS [address] [place] [address] 09/04/2025 9:30 AM EST Office Visit [facility] ADULT DENTAL [address] [place] [address] Addie Scanlon 09/24/2025 1:30 PM EDT Office Visit [facility] OPTOMETRY [address] [place] [address] Glenny Pineda, OD [address] [place] [address] documented as of this encounter Goals Goal Patient Goal Type Associated Problems Recent Progress Patient-Stated? Author Blood Pressure < 140/90 Blood Pressure 132/66(2024 9:51 AM EDT) No Paul Macias PharmD Eat a balanced, healthy diet Diet No Jess Garcia RN Hemoglobin A1c < 7 Result Component 7.8( 9:24 AM EDT) No Paul Macias PharmD Quit using tobacco (cigarettes, smokeless, etc) Tobacco Use No Paul Macias PharmD documented as of this encounter Visit Diagnoses Diagnosis Pain, dental documented in this encounter Additional Health Concerns Assessment Noted Time PHQ-9 Depression Total Score: 8 08/25/19 23 10:52 AM EST documented as of this encounter Care Teams Excavator Backhoe Operator Relationship Specialty Start Date End Date Kiara Resendez MD [address] [place] [address] PCP - General Family Medicine 07/19/18 Paul Macias, Sabrina [address] [place] [address] Pharmacist Internal Medicine 11/20/22 Karlee Sanders Plating EngineerPlaner Operator 02/23/24 documented as of this encounter
--- OUTSIDE RECORDS SUMMARY | 2025-06-08 09:25 | XMS_ITS | Encounter Summary ---
Author Organization [employer] Address 75 [facility] 7t [place] [address] Care Team Providers Care Professor Of Social Work Name Role Phone Kaira Resendez MD Primary Care Provider [phone] Paul Macias PharmD Unavailable [phone] Reason for Visit * Reason Comments Med Refill Encounter Details Date Type Department Care Team (Late st Contact Info) Description 02/01/2025 Refill [facility] [address] [place], [place] [phone] Kiara Resendez MD [address] [place] [address] Chronic low back pain, unspecified back pain [...] Description 06/29/2025 9:00 AM EST Clinical Support [facility] MEDICINE [address] [place] [address] Sona Moreira, RN [address] [place] [address] 07/27/2025 9:00 AM EST Office Visit [facility] ADULT DENTAL [address] [place] [address] Beni Almodovar DDS [address] [place] [address] 09/04/2025 9:30 AM EST Office Visit [facility] ADULT DENTAL [address] [place] [address] Addie Scanlon 09/24/2025 1:30 PM EDT Office Visit [facility] OPTOMETRY [address] [place] [address] Glenny Pineda OD [address] [place] [address] documented as of this encounter Goals Goal [...] Assessment Noted Time PHQ-9 Depression Total Score: 10 025 12:21 PM EDT documented as of this encounter Care Teams Professor Of Social Work Relationship Specialty Start Date End Date Kiara Resendez MD [address] [place] [address] PCP - General Family Medicine 07/19/18 Paul Macias PharmD [address] [place] [address] Pharmacist Internal Medicine 11/20/22 Karlee Sanders Core WorkerPararescue Craftsman 02/23/24 documented as of this encounter
--- OUTSIDE RECORDS SUMMARY | 2025-06-08 09:25 | XMS_ITS | Encounter Summary ---
Author Organization [employer] Address 75 [facility] 7t [place] [address] Care Team Providers Care Rn Emergency Name Role Phone Kiara Resendez MD Primary Care Provider [phone] Paul Macias PharmD Unavailable [phone] Encounter Details Date Type Department Care Team ([facility] st Contact Info) Description 07/13/2024 Orders Only [facility] MEDICINE [address] [place], [place] [phone] Kiara Resendez MD [address] [place], [place] [phone] Social History Tobacco Use Types Packs/Day Years [...] Trouble relaxing 1 07/13/2024 9:28 AM Pilar Acosta [place] Being so restless that it is hard to sit still 1 07/13/2024 9:28 AM Maritza Calhoun [place] Becoming easily annoyed or irritable 1 07/13/2024 9:28 AM Maritza Calhoun [place] Feeling afraid as if somethi ng awful might happen 1 07/13/2024 9:28 AM Maritza Calhoun [place] GURU-7 Total Score 7 07/13/2024 9:28 AM EST Pilar Reyes [place] documented as of this encounter Plan of Treatment Upcoming Encounters Date Type Department Care Team (Late st Contact Info) Description 06/29/2025 9:00 AM EST Clinical Support [facility] MEDICINE [address] [place] [address] Sona Moreira, RN [address] [place] [address] 07/27/2025 9:00 AM EST Office Visit [facility] ADULT DENTAL [address] [place] [address] Beni Almodovar DDS [address] [place] [address] 09/04/2025 9:30 AM EST Office Visit [facility] ADULT DENTAL [address] [place] [address] Addie Scanlon 09/24/2025 1:30 PM EDT Office Visit [facility] OPTOMETRY [address] [place] [address] TarkaGlenny, OD [address] [place] [address] documented as of this encounter Goals Goal Patient Goal Type Associated Problems Recent Progress Patient-Stated? Author Blood Pressure < 140/90 Blood Pressure 132/66(2024 9:51 AM EDT) No Paul Macias, PharmD Eat a balanced, healthy diet Diet No Jess Garcia RN Hemoglobin A1c < 7 Result Component 7.8( 9:24 AM EDT) No Paul Macias, PharmLani Quit using tobacco (cigarettes, smokeless, etc) Tobacco Use No Paul Macias PharmLani documented as of this encounter Procedures Procedure Name Priority Date/Time Associated Diagnosis Comments XR CHEST 2 VIEWS Routine 07/27/2024 7:45 AM EST documented in this encounter Results * XR Chest 2 Views (07/27/2024 7:45 AM EST) Anatomical Region Laterality Modality Chest Radiographic Crys ging 07/27/2024 7:45 AM EST Narrative 07/27/2024 7:59 AM EST [address] [address] XRay Report Signed Patient: Lisa De La Cruz MR #: [id number] : 1960 Acct:[id number] Age/Sex: 64 / F ADM Date: 07/27/24 Loc: HO.ED Attending Dr: Ordering Physician: Generic ED Physician Date of Service: 07/27/24 Procedure(s): XR chest 2V Accession Number(s): [id number] cc: Generic ED Physician; Kiara Resendez MD [...] Markus Cook MD 07/27/2024 07:56 AM EST Dictated By: Markus Monson MD Signed By: <Electronically signed by Markus Ramey MD in OV> 07/27/24 0756 DD/ 0745 TD/TT: 07/27/24 0753 [employer]: Procedure Note Donotuseinterpreter, Image - 07/27/[address] [address] XRay Report Signed Patient: Gilma De La CruzR #: [id number] : [id number]:[id number] Age/Sex: 64 / FADM Date: 07/27/24 Loc: HO.ED Attending Dr: Ordering Physician: Generic ED Physician Date of Service: 07/27/24 Procedure(s): XR chest 2V Accession Number(s): [id number] cc: Generic ED Physician; Kiara Resendez MD [...] 07/27/24 0756 DD/ 0745 TD/TT: 07/27/24 0753 [employer]: [facility] External Provider IMG XR PROCEDURES Final Result documented in this encounter Visit Diagnoses Not on filedocumented in this encounter Additional Health Concerns Assessment Noted Time PHQ-9 Depression Total Score: 11 024 9:28 AM EST documented as of this encounter Care Teams Rn Emergency Relationship Specialty Start Date End Date Kiara Resendez MD [address] [place] [address] PCP - General Family Medicine 07/19/18 Palu Macias, AlvinD [address] [place] [address] Pharmacist Internal Medicine 11/20/22 Karlee Sanders Head SawyerCasino Duty Manager 02/23/24 documented as of this encounter
--- OUTSIDE RECORDS SUMMARY | 2025-06-08 09:25 | XMS_ITS | Encounter Summary ---
Author Organization [employer] Address [address] [facility] 7t [place] [address] Care Team Providers Care Front End Developer Designer Name Role Phone Kiara Resendez MD Primary Care Provider [phone] Paul Macias PharmD Unavailable [phone] Encounter Details Date Type Department Care Team ([facility] Contact Info) Description 12/22/2024 Telephone [facility] MEDICINE [address] [place], [place] [phone] Kiara Resendez MD [address] [place], [place] [phone] Social History Tobacco Use Types Packs/Day Years [...] Description 06/29/2025 9:00 AM EST Clinical Support [facility] MEDICINE [address] [place] [address] Sona Moreira RN [address] [place] [address] 07/27/2025 9:00 AM EST Office Visit [facility] ADULT DENTAL [address] [place] [address] Beni Almodovar DDS [address] [place] [address] 09/04/2025 9:30 AM EST Office Visit [facility] ADULT DENTAL [address] [place] [address] Addie Scanlon 09/24/2025 1:30 PM EDT Office Visit [facility] OPTOMETRY [address] [place] [address] Glenny Pineda OD [address] [place] [address] documented as of this encounter Goals Goal [...] as of this encounter Care Teams Front End Developer Designer Relationship Specialty Start Date End Date Kiara Resendez MD [address] [place] [address] PCP - General Family Medicine 07/19/18 Paul Macias PharmD [address] [place] [address] Pharmacist Internal Medicine 11/20/22 Karlee Sanders Obstetrical TechGrain Drier Operator 02/23/24 documented as of this encounter
--- OUTSIDE RECORDS SUMMARY | 2025-06-08 09:25 | XMS_ITS | Encounter Summary ---
Author Organization [employer] Address [address] [facility] 7t [place] [address] Care Team Providers Care Customer Quality Engineer Name Role Phone Kiara Resendez MD Primary Care Provider [phone] Paul Macias PharmD Unavailable [phone] Reason for Visit * Reason Comments Med Refill Encounter Details Date Type Department Care Team (Late st Contact Info) Description 08/26/2023 Refill [facility] MEDICINE [address] [place], [place] [phone] Kiara Resendez MD [address] [place], [place] [phone] Social History Tobacco Use Types Packs/Day Years [...] Description 06/29/2025 9:00 AM EST Clinical Support [facility] MEDICINE [address] [place] [address] Sona Moreira RN [address] [place] [address] 07/27/2025 9:00 AM EST Office Visit [facility] ADULT DENTAL [address] [place] [address] Beni Almodovar DDS [address] [place] [address] 09/04/2025 9:30 AM EST Office Visit [facility] ADULT DENTAL [address] [place] [address] Addie Scanlon 09/24/2025 1:30 PM EDT Office Visit [facility] OPTOMETRY [address] [place] [address] Glenny Pineda OD [address] [place] [address] documented as of this encounter Goals Goal Patient Goal Type Associated Problems Recent Progress Patient-Stated? Author Blood Pressure < 140/90 Blood Pressure 132/66(2024 9:51 AM EDT) No Paul Macias, PharmD Eat a balanced, healthy diet Diet No Jess Garcia, RN Hemoglobin A1c < 7 Result Component 7.8( 5 9:24 AM EDT) No Paul Macias PharmD Quit using tobacco (cigarettes, smokeless, etc) Tobacco Use No Paul Macias PharmD documented as of this encounter Visit Diagnoses Not on filedocumented in this encounter Additional Health Concerns Assessment Noted Time PHQ-9 Depression Total Score: 8 08/25/19 23 10:52 AM EST documented as of this encounter Care Teams Customer Quality Engineer Relationship Specialty Start Date End Date Kiara Resendez MD [address] [place] [address] PCP - General Family Medicine 07/19/18 Paul Macias, PharmD [address] [place] [address] Pharmacist Internal Medicine 11/20/22 Karlee Sanders Dolphin TrainerGroup Home Counselor 02/23/24 documented as of this encounter
--- OUTSIDE RECORDS SUMMARY | 2025-06-08 09:25 | XMS_ITS | Encounter Summary ---
Author Organization [email or web address] Address [address] [facility] 7t [place] [address] Care Team Providers Care Field Project Manager Name Role Phone Kiara Resendez MD Primary Care Provider [phone] Paul Macias PharmD Unavailable [phone] Reason for Visit * Reason Comments Med Refill Encounter Details Date Type Department Care Team (Late st Contact Info) Description 09/18/2023 Refill [facility] MEDICINE [address] [place], [place] [phone] Kiara Resendez MD [address] [place], [place] [phone] Asthma with COPD Social History Tobacco Use [...] Upcoming Encounters Date Type Department Care Team ([facility] st Contact Info) Description 06/29/2025 9:00 AM EST Clinical Support [facility] MEDICINE [address] [place] [address] Sona Moreira RN [address] [place] [address] 07/27/2025 9:00 AM EST Office Visit [facility] ADULT DENTAL [address] [place] [address] Beni Almodovar DDS [address] [place] [address] 09/04/2025 9:30 AM EST Office Visit [facility] ADULT DENTAL [address] [place] [address] Addie Scanlon 09/24/2025 1:30 PM EDT Office Visit [facility] OPTOMETRY [address] [place] [address] Glenny Pineda OD [address] [place] [address] documented as of this encounter Goals Goal Patient Goal Type Associated Problems Recent Progress Patient-Stated? Author Blood Pressure < 140/90 Blood Pressure 132/66(2024 9:51 AM EDT) No Paul Macias, PharmD Eat a balanced, healthy diet Diet No Jose Jess, RN Hemoglobin A1c < 7 Result Component 7.8( 5 9:24 AM EDT) No Paul Macias, Sabrina Quit using tobacco (cigarettes, smokeless, etc) Tobacco Use No Paul Macias, Sabrina documented as of this encounter Visit Diagnoses Diagnosis Asthma with COPD (CMS/HCC) ([facility]) documented in this encounter Additional Health Concerns Assessment Noted Time PHQ-9 Depression Total Score: 8 08/25/19 23 10:52 AM EST documented as of this encounter Care Teams Field Project Manager Relationship Specialty Start Date End Date Kiara Resendez MD [address] [place] [address] PCP - General Family Medicine 07/19/18 Paul Macias, PharmD [address] [place] [address] Pharmacist Internal Medicine 11/20/22 Karlee Sanders Coal [place] O[place] ControllerResident Care Assistant 02/23/24 documented as of this encounter
--- OUTSIDE RECORDS SUMMARY | 2025-06-08 09:25 | XMS_ITS | Encounter Summary ---
Author Organization [employer] Address [address] [facility] 7t [place] [address] Care Team Providers Care Application Development Consultant Name Role Phone Kiara Resendez MD Primary Care Provider [phone] Paul Macias PharmD Unavailable [phone] Reason for Visit * Reason Onset Date Comments need upperr and lower models 09/02/2023 Encounter Details Date Type Department Care Team ([facility] st Contact Info) Description 09/02/2023 Telephone [facility] ADULT DENTAL [address] [place] [address] Beni Almodovar DDS [address] [place] [address] need upperr and lower models Social History [...] Kristin Gaxiola * Telephone Encounter - Nieves Garnre - 09/02/2023 4:17 PM EST Leif delgado [facility] called stating that they need the upper and lower models for he wax try in. They did not receive them. documented in this encounter Plan of Treatment Upcoming Encounters Date Type Department Care Team (Late st Contact Info) Description 06/29/2025 9:00 AM EST Clinical Support [facility] MEDICINE [address] [place] [address] Sona Moreira RN 505 [place] [address] 07/27/2025 9:00 AM EST Office Visit [facility] ADULT DENTAL [address] [place] [address] Beni Almodovar DDS [address] [place] [address] 09/04/2025 9:30 AM EST Office Visit [facility] ADULT DENTAL [address] [place] [address] Addie Scanlon 09/24/2025 1:30 PM EDT Office Visit [facility] OPTOMETRY [address] [place] [address] TarGlenny balderas, OD [address] [place] [address] documented as of this encounter Goals Goal [...] documented as of this encounter Care Teams Application Development Consultant Relationship Specialty Start Date End Date Kiara Resendez MD [address] [place] [address] PCP - General Family Medicine 07/19/18 Paul Macias, PharmD [address] [place] [address] Pharmacist Internal Medicine 11/20/22 Karlee Sanders Teacher Of The Hearing ImpairedPecan Picker 02/23/24 documented as of this encounter
--- OUTSIDE RECORDS SUMMARY | 2025-06-08 09:25 | XMS_ITS | Encounter Summary ---
Author Organization [employer] Address 75 [facility] 7t [place] [address] Care Team Providers Care Retail Coverage Merchandiser Lead Name Role Phone Kiara Resendez MD Primary Care Provider [phone] Paul Macias PharmD Unavailable [phone] Reason for Visit * Reason Comments Med Refill Encounter Details Date Type Department Care Team ([facility] st Contact Info) Description 09/09/2022 Refill [facility] MEDICINE [address] [place], [place] [phone] Kiara Resendez MD 230 [place], [place] [phone] Allergic rhinitis, unspecified seasonality, unspecified trigger Social [...] 9:00 AM EST Clinical Support [facility] MEDICINE [address] [place] [address] Sona Moreira, RN [address] [place] [address] 07/27/2025 9:00 AM EST Office Visit [facility] ADULT DENTAL [address] [place] [address] Beni Almodovar DDS [address] [place] [address] 09/04/2025 9:30 AM EST Office Visit [facility] ADULT DENTAL [address] [place] [address] Addie Scanlon 09/24/2025 1:30 PM EDT Office Visit [facility] OPTOMETRY [address] [place] [address] Glenny Pineda, OD [address] [place] [address] documented as of this encounter Goals Goal Patient Goal Type Associated Problems Recent Progress Patient-Stated? Author Eat a balanced, healthy diet Diet Jses Rowe, RN documented as of this encounter Visit Diagnoses Diagnosis Allergic rhinitis, unspecified seasonality, unspecified trigger documented in this encounter Additional Health Concerns Assessment Noted Time PHQ-9 Depression Total Score: 8 08/25/19 23 10:52 AM EST documented as of this encounter Care Teams Retail Coverage Merchandiser Lead Relationship Specialty Start Date End Date Kiara Resendez MD [address] [place] [address] PCP - General Family Medicine 07/19/18 Paul Macias, PharmD [address] [place] [address] Pharmacist Internal Medicine 11/20/22 Karlee Sanders Credentialing AnalystGolf Professional 02/23/24 documented as of this encounter
--- OUTSIDE RECORDS SUMMARY | 2025-06-08 09:25 | XMS_ITS | Encounter Summary ---
Author Organization [employer] Address 75 [facility] 7t [place] [address] Care Team Providers Care Valve Inserter Name Role Phone Kiara Resendez MD Primary Care Provider [phone] Paul Macias PharmD Unavailable [phone] Reason for Visit * Reason Comments Med Refill Encounter Details Date Type Department Care Team ([facility] st Contact Info) Description 11/18/[address] [facility] MEDICINE [address] [place], [place] [phone] Kiara Resendez MD 230 [place], [place] [phone] Social History Tobacco Use Types Packs/Day Years [...] 06/29/2025 9:00 AM EST Clinical Support [facility] MEDICINE [address] [place] [address] Sona Moreira RN 505 [place] [address] 07/27/2025 9:00 AM EST Office Visit [facility] ADULT DENTAL [address] [place] [address] Beni Almodovar DDS [address] [place] [address] 09/04/2025 9:30 AM EST Office Visit [facility] ADULT DENTAL [address] [place] [address] Addie Scanlon 09/24/2025 1:30 PM EDT Office Visit [facility] OPTOMETRY [address] [place] [address] Glenny Pineda OD [address] [place] [address] documented as of this encounter Goals Goal [...] documented as of this encounter Care Teams Valve Inserter Relationship Specialty Start Date End Date Kiara Resendez MD 230 [place] [address] PCP - General Family Medicine 07/19/18 Paul Macias, PharmD [address] [place] [address] Pharmacist Internal Medicine 11/20/22 Karlee Sanders Historic Site AdministratorBread Jockey 02/23/24 documented as of this encounter
--- OUTSIDE RECORDS SUMMARY | 2025-06-08 09:25 | XMS_ITS | Encounter Summary ---
Author Organization [employer] Address 75 [facility] 7t [place] [address] Care Team Providers Care Real Estate Site Analyst Name Role Phone Kiara Resendez MD Primary Care Provider [phone] Paul Macias PharmD Unavailable [phone] Reason for Visit * Reason Comments Med Refill Encounter Details Date Type Department Care Team (Late st Contact Info) Description 12/14/2024 Refill [facility] ADULT DENTAL [address] [place] [address] Beni Almodovar DDS [address] [place] [address] Social History Tobacco Use Types Packs/Day Years [...] Description 06/29/2025 9:00 AM EST Clinical Support [facility] MEDICINE [address] [place] [address] Sona Moreira, RN 505 [place] [address] 07/27/2025 9:00 AM EST Office Visit [facility] ADULT DENTAL [address] [place] [address] Beni Almodovar DDS [address] [place] [address] 09/04/2025 9:30 AM EST Office Visit [facility] ADULT DENTAL [address] [place] [address] Addie Scanlon 09/24/2025 1:30 PM EDT Office Visit [facility] OPTOMETRY [address] [place] [address] Glenny Pineda OD [address] [place] [address] documented as of this encounter Goals Goal [...] documented as of this encounter Care Teams Real Estate Site Analyst Relationship Specialty Start Date End Date Kiara Resendez MD [address] [place] [address] PCP - General Family Medicine 07/19/18 Paul Macias, AlvinD [address] [place] [address] Pharmacist Internal Medicine 11/20/22 Karlee Sanders Supervisor Winding DepartmentReal Estate Site Analyst 02/23/24 documented as of this encounter
--- OUTSIDE RECORDS SUMMARY | 2025-06-08 09:25 | XMS_ITS | Encounter Summary ---
Author Organization [employer] Address 75 [facility] 7t [place] [address] Care Team Providers Care Hook And Eye Attacher Name Role Phone Kiara Resendez MD Primary Care Provider [phone] Paul Macias PharmD Unavailable [phone] Reason for Visit * Reason Comments Med Refill Encounter Details Date Type Department Care Team (Late st Contact Info) Description 06/03/2025 Refill [facility] [address] [place], [place] [phone] Kiara Resendez MD [address] [place] [address] Insomnia, unspecified type Social History Tobacco Use Types Packs/Day Years [...] Description 06/29/2025 9:00 AM EST Clinical Support [facility] MEDICINE [address] [place] [address] Sona Moreira, RN 505 [place] [address] 07/27/2025 9:00 AM EST Office Visit [facility] ADULT DENTAL [address] [place] [address] Beni Almodovar DDS [address] [place] [address] 09/04/2025 9:30 AM EST Office Visit [facility] ADULT DENTAL [address] [place] [address] Addie Scanlon 09/24/2025 1:30 PM EDT Office Visit [facility] OPTOMETRY [address] [place] [address] Glenny Pineda OD [address] [place] [address] documented as of this encounter Goals Goal [...] as of this encounter Visit Diagnoses Diagnosis Insomnia, unspecified type documented in this encounter Additional Health Concerns Assessment Noted Time PHQ-9 Depression Total Score: 10 025 12:21 PM EDT documented as of this encounter Care Teams Hook And Eye Attacher Relationship Specialty Start Date End Date Kiara Resendez MD [address] [place] [address] PCP - General Family Medicine 07/19/18 Paul Macias PharmD [address] [place] [address] Pharmacist Internal Medicine 11/20/22 Karlee Sanders Truck Dock Material MoverRelief Docking Master 02/23/24 documented as of this encounter
--- OUTSIDE RECORDS SUMMARY | 2025-06-08 09:25 | XMS_ITS | Encounter Summary ---
Author Organization [employer] Address 75 [facility] 7t [place] [address] Care Team Providers Care Commissary Assistant Name Role Phone Kiara Resendez MD Primary Care Provider [phone] Paul Macias PharmD Unavailable [phone] Encounter Details Date Type Department Care Team ([facility] Contact Info) Description 07/23/2022 Abstract [facility] MEDICINE [address] [place] [address] Kiara Resendez MD [address] [place] [address] Social History Tobacco Use Types Packs/Day Years [...] Upcoming Encounters Date Type Department Care Team ([facility] Contact Info) Description 06/29/2025 9:00 AM EST Clinical Support [facility] MEDICINE [address] [place] [address] Sona Moreira, RN [address] [place] [address] 07/27/2025 9:00 AM EST Office Visit [facility] ADULT DENTAL [address] [place] [address] Beni Almodovar DDS [address] [place] [address] 09/04/2025 9:30 AM EST Office Visit [facility] ADULT DENTAL [address] [place] [address] Addie Scanlon 09/24/2025 1:30 PM EDT Office Visit [facility] OPTOMETRY [address] [place] [address] Glenny Pineda, OD [address] [place] [address] documented as of this encounter Goals Goal Patient Goal Type Associated Problems Recent Progress Patient-Stated? Author Eat a balanced, healthy diet Diet Jess Rowe, RN documented as of this encounter Visit Diagnoses Not on filedocumented in this encounter Care Teams Commissary Assistant Relationship Specialty Start Date End Date Kiara Resendez MD [address] [place] [address] PCP - General Family Medicine 07/19/18 Paul Macias, AlvinD [address] [place] [address] Pharmacist Internal Medicine 11/20/22 Karlee Sanders Cost And Risk Analysis ManagerAssistant Professor Of Archaeology 02/23/24 documented as of this encounter
--- OUTSIDE RECORDS SUMMARY | 2025-06-08 09:25 | XMS_ITS | Encounter Summary ---
Author Organization [employer] Address 75 [facility] 7t [place] [address] Care Team Providers Care Accounts Payable Professional Name Role Phone Kiara Resendez MD Primary Care Provider [phone] Paul Macias PharmD Unavailable [phone] Reason for Visit * Reason Comments Med Refill Encounter Details Date Type Department Care Team (Late st Contact Info) Description 08/26/2023 Refill [facility] MEDICINE [address] [place], [place] [phone] Kiara Resendez MD [address] [place], [place] [phone] Social History Tobacco Use Types Packs/Day Years [...] Description 06/29/2025 9:00 AM EST Clinical Support [facility] MEDICINE 230 [place] [address] Sona Moreira RN 505 [place] [address] 07/27/2025 9:00 AM EST Office Visit [facility] ADULT DENTAL 230 [place] [address] Beni Almodovar DDS [address] [place] [address] 09/04/2025 9:30 AM EST Office Visit [facility] ADULT DENTAL 230 [place] [address] Addie Scanlon 09/24/2025 1:30 PM EDT Office Visit [facility] OPTOMETRY [address] [place] [address] Glenny Pineda OD [address] [place] [address] documented as of this encounter Goals Goal [...] documented as of this encounter Care Teams Accounts Payable Professional Relationship Specialty Start Date End Date Kiara Resendez MD 230 [place] [address] PCP - General Family Medicine 07/19/18 Paul Macias, PharmD 230 [place] [address] Pharmacist Internal Medicine 11/20/22 Karlee Sanders Sand Cleaning Machine OperatorCreative Director 02/23/24 documented as of this encounter
--- OUTSIDE RECORDS SUMMARY | 2025-06-08 09:25 | XMS_ITS | Encounter Summary ---
Author Organization [email or web address] Address 75 [facility] 7t [place] [address] Care Team Providers Care Sewing Machine Maintenance Mechanic Name Role Phone Kiara Resendez MD Primary Care Provider [phone] Paul Macias PharmD Unavailable [phone] Reason for Visit * Reason Comments Med Refill Encounter Details Date Type Department Care Team (Late st Contact Info) Description 10/26/2023 Refill [facility] ADULT DENTAL [address] [place] [address] Beni Almodovar DDS [address] [place] [address] Other specified disorders of teeth and supporting [...] Description 06/29/2025 9:00 AM EST Clinical Support [facility] MEDICINE [address] [place] [address] Sona Moreira, JEFF [address] [place] [address] 07/27/2025 9:00 AM EST Office Visit [facility] ADULT DENTAL [address] [place] [address] Beni Almodovar DDS [address] [place] [address] 09/04/2025 9:30 AM EST Office Visit [facility] ADULT DENTAL [address] [place] [address] Addie Scanlon 09/24/2025 1:30 PM EDT Office Visit [facility] OPTOMETRY [address] [place] [address] Glenny Pineda OD [address] [place] [address] documented as of this encounter Goals Goal [...] documented as of this encounter Care Teams Sewing Machine Maintenance Mechanic Relationship Specialty Start Date End Date Kiara Resendez MD 230 [place] [address] PCP - General Family Medicine 07/19/18 Paul Macias PharmD [address] [place] [address] Pharmacist Internal Medicine 11/20/22 Karlee Sanders Plant And Instrument EngineerClaim Inspector 02/23/24 documented as of this encounter
--- OUTSIDE RECORDS SUMMARY | 2025-06-08 09:25 | XMS_ITS | Encounter Summary ---
Author Organization [employer] Address [address] [facility] [address] 7t [place] [address] Care Team Providers Care Manager Of Health Name Role Phone Kiara Resendez MD Primary Care Provider [phone] Paul Macias PharmD Unavailable [phone] Encounter Details Date Type Department Care Team (Late st Contact Info) Description 08/21/2024 Abstract [facility] MEDICINE [address] [place], [place] [phone] Pilar Reyes [place] Social History Tobacco Use [...] Description 06/29/2025 9:00 AM EST Clinical Support [facility] MEDICINE [address] [place] [address] Sona Moreira, RN 505 [place] [address] 07/27/2025 9:00 AM EST Office Visit [facility] ADULT DENTAL [address] [place] [address] Beni Almodovar DDS [address] [place] [address] 09/04/2025 9:30 AM EST Office Visit [facility] ADULT DENTAL [address] [place] [address] Addie Scanlon 09/24/2025 1:30 PM EDT Office Visit [facility] OPTOMETRY [address] [place] [address] Glenny Pineda, ADEBAYO [address] [place] [address] documented as of this encounter Goals Goal [...] of this encounter Care Teams Manager Of Health Relationship Specialty Start Date End Date Kiara Resendez MD 230 [place] [address] PCP - General Family Medicine 07/19/18 Paul Macias PharmD 230 [place] [address] Pharmacist Internal Medicine 11/20/22 Karlee Sanders Manual Lathe OperatorTechnical Education Teacher 02/23/24 documented as of this encounter
--- OUTSIDE RECORDS SUMMARY | 2025-06-08 09:25 | XMS_ITS | Encounter Summary ---
Author Organization [employer] Address 75 [facility] 7t [place] [address] Care Team Providers Care Design Project Manager Name Role Phone Kiara Resendez MD Primary Care Provider [phone] Paul Macias PharmD Unavailable [phone] Reason for Visit * Reason Comments Med Refill Encounter Details Date Type Department Care Team (Late st Contact Info) Description 12/21/2024 Refill [facility] MEDICINE [address] [place], [place] [phone] Kiara Resendez MD 230 [place], [place] [phone] Type 2 diabetes mellitus with hyperglycemia, without long-term current use of insulin ([facility]) Social History Tobacco Use Types Packs/Day Years [...] Description 06/29/2025 9:00 AM EST Clinical Support [facility] MEDICINE [address] [place] [address] Sona Moreira, RN [address] [place] [address] 07/27/2025 9:00 AM EST Office Visit [facility] ADULT DENTAL [address] [place] [address] Beni Almodovar DDS [address] [place] [address] 09/04/2025 9:30 AM EST Office Visit [facility] ADULT DENTAL [address] [place] [address] Addie Scanlon 09/24/2025 1:30 PM EDT Office Visit [facility] OPTOMETRY [address] [place] [address] Glenny Pineda OD [address] [place] [address] documented as of this encounter Goals Goal [...] as of this encounter Visit Diagnoses Diagnosis Type 2 diabetes mellitus with hyperglycemia, without long-term current use of insulin (HCC) documented in this encounter Additional Health Concerns Assessment Noted Time PHQ-9 Depression Total Score: 10 025 12:21 PM EDT documented as of this encounter Care Teams Design Project Manager Relationship Specialty Start Date End Date Kiara Resendez MD [address] [place] [address] PCP - General Family Medicine 07/19/18 Paul Macias PharmD [address] [place] [address] Pharmacist Internal Medicine 11/20/22 Karlee Sanders Stock Parts InspectorMother Tester 02/23/24 documented as of this encounter
--- OUTSIDE RECORDS SUMMARY | 2025-06-08 09:25 | XMS_ITS | Encounter Summary ---
Author Organization [employer] Address 75 [facility] 7t [place] [address] Care Team Providers Care Fabric Machine Operator Name Role Phone Kiara Resendez MD Primary Care Provider [phone] Paul Macias PharmD Unavailable [phone] Reason for Visit * Reason Onset Date Comments FYI 04/18/2024 Encounter Details Date Type Department Care Team ([facility] st Contact Info) Description 04/18/2024 Telephone [facility] MEDICINE [address] [place], [place] [phone] Kiara Resendez MD [address] [place] [address] FYI Social History Tobacco Use Types Packs/Day [...] inform pcp that they're in process getting MORTGAGE LOAN PROCESSING CLERK services and agency is faxing over forms for pcp to sign. If any questions you can contact pt at [phone]. documented in this encounter Plan of Treatment Upcoming Encounters Date Type Department Care Team ([facility] st Contact Info) Description 06/29/2025 9:00 AM EST Clinical Support [facility] MEDICINE [address] [place] [address] Sona Moreira RN 505 [place] [address] 07/27/2025 9:00 AM EST Office Visit [facility] ADULT DENTAL [address] [place] [address] Beni Almodovar DDS [address] [place] [address] 09/04/2025 9:30 AM EST Office Visit [facility] ADULT DENTAL [address] [place] [address] Addie Scanlon 09/24/2025 1:30 PM EDT Office Visit [facility] OPTOMETRY [address] [place] [address] Glenny Pineda, OD [address] [place] [address] documented as of this encounter Goals Goal [...] documented as of this encounter Care Teams Fabric Machine Operator Relationship Specialty Start Date End Date Kiara Resendez MD [address] [place] [address] PCP - General Family Medicine 07/19/18 Paul Macias, Sabrina [address] [place] [address] Pharmacist Internal Medicine 11/20/22 Karlee Sanders Outreach ManagerCamera Engineer 02/23/24 documented as of this encounter
--- OUTSIDE RECORDS SUMMARY | 2025-06-08 09:25 | XMS_ITS | Encounter Summary ---
Author Organization [employer] Address 75 [facility] 7t [place] [address] Care Team Providers Care Web Methods Developer Name Role Phone Kiara Resendez MD Primary Care Provider [phone] Paul Macias PharmD Unavailable [phone] Encounter Details Date Type Department Care Team ([facility] st Contact Info) Description 07/30/2023 Orders Only [facility] MEDICINE [address] [place], [place] [phone] Kiara Resendez MD [address] [place], [place] [phone] Social History Tobacco Use Types Packs/Day Years [...] or on edge 3 07/19 12:48 PM EST Megan Phillip Not being able to stop or co ntrol worrying 3 07/30/2023 12:48 PM EST Megan Phillip Worrying too much about different things 3 07/30/2023 12:48 PM EST Megan Phillip Trouble relaxing 3 07/30/2023 12:48 PM EST Adriel Phillipsa Being so restless that it is hard to sit still 3 07/30/2023 12:48 PM EST Adriel Phillipsa Becoming easily annoyed or irritable 3 07/19 12:48 PM EST Megan Phillip Feeling afraid as if somethi ng awful might happen 3 07/30/2023 12:48 PM EST Megan Phillip GURU-7 Total Score 21 07/30/2023 12:48 PM EST Megan Phillip documented as of this encounter Plan of Treatment Upcoming Encounters Date Type Department Care Team (Late st Contact Info) Description 06/29/2025 9:00 AM EST Clinical Support [facility] MEDICINE [address] [place] [address] Sona Moreira, JEFF 505 [place], [place] [phone] 07/27/2025 9:00 AM EST Office Visit [facility] ADULT DENTAL 230 [facility], [place] [phone] Beni Almodovar, DDS [address] [place] [address] 09/04/2025 9:30 AM EST Office Visit [facility] ADULT DENTAL 230 [place] [address] Addie Scanlon 09/24/2025 1:30 PM EDT Office Visit [facility] OPTOMETRY [address] [facility], [place] [phone] TarGlneny balderas, OD [address] [place] [address] documented as of this encounter Goals Goal [...] documented as of this encounter Care Teams Web Methods Developer Relationship Specialty Start Date End Date Kiara Resendez MD [address] [place], [place] [phone] PCP - General Family Medicine 07/19/18 Paul Macias PharmD [address] [place], [place] [phone] Pharmacist Internal Medicine 11/20/22 Karlee Sanders County AdministratorSuperintendent Meters 02/23/24 documented as of this encounter
--- OUTSIDE RECORDS SUMMARY | 2025-06-08 09:25 | XMS_ITS | Encounter Summary ---
Author Organization [employer] Address 75 [facility] 7t [place] [address] Care Team Providers Care Spring Coiler Name Role Phone Kiara Resendez MD Primary Care Provider [phone] Paul Macias PharmD Unavailable Reason for Visit * Reason Comments Med Refill Encounter Details Date Type Department Care Team ([facility] st Contact Info) Description 12/13/2024 Refill [facility] MEDICINE [address] [place], [place] [phone] Kiara Resendez MD 230 [place] [address] Social History Tobacco Use Types Packs/Day Years [...] 06/29/2025 9:00 AM EST Clinical Support [facility] MEDICINE [address] [place] [address] Sona Moreira, RN [address] [place] [address] 07/27/2025 9:00 AM EST Office Visit [facility] ADULT DENTAL [address] [place] [address] Beni Almodovar DDS [address] [place] [address] 09/04/2025 9:30 AM EST Office Visit [facility] ADULT DENTAL [address] [place] [address] Addie Scanlon 09/24/2025 1:30 PM EDT Office Visit [facility] OPTOMETRY [address] [place] [address] Glenny Pineda OD [address] [place] [address] documented as of this encounter Goals Goal [...] documented as of this encounter Care Teams Spring Coiler Relationship Specialty Start Date End Date Kiara Resendez MD 230 [place] [address] PCP - General Family Medicine 07/19/18 Paul Macias, AlvinD 230 [place] [address] Pharmacist Internal Medicine 11/20/22 Karlee Sanders Waiter/Waitress Cabin ClassTallow Maker 02/23/24 documented as of this encounter
--- OUTSIDE RECORDS SUMMARY | 2025-06-08 09:25 | XMS_ITS | Encounter Summary ---
Author Organization [employer] Address 75 [facility] 7t [place] [address] Care Team Providers Care Ict Project Manager Name Role Phone Kiara Resendez MD Primary Care Provider [phone] Paul Macias PharmD Unavailable [phone] Encounter Details Date Type Department Care Team ([facility] st Contact Info) Description 11/19/2022 Orders Only [facility] MEDICINE 230 [place], [place] [phone] Kiara Resendez MD [address] [place], [place] [phone] Social History Tobacco Use Types Packs/Day Years [...] Description 06/29/2025 9:00 AM EST Clinical Support [facility] MEDICINE 230 [place] [address] Sona Moreira, RN [address] [place] [address] 07/27/2025 9:00 AM EST Office Visit [facility] ADULT DENTAL [address] [place] [address] Beni Almodovar DDS 230 [place] [address] 09/04/2025 9:30 AM EST Office Visit [facility] ADULT DENTAL [address] [place] [address] Addie Scanlon 09/24/2025 1:30 PM EDT Office Visit [facility] OPTOMETRY [address] [place] [address] Glenny Pineda, OD [address] [place] [address] documented as of this encounter Goals Goal Patient Goal Type Associated Problems Recent Progress Patient-Stated? Author Blood Pressure < 140/90 Blood Pressure 132/66( 025 9:51 AM EDT) No Paul Macias, PharmD Eat a balanced, healthy diet Diet No Jess Garcia, RN Quit using tobacco (cigarettes, smokeless, etc) Tobacco Use No Paul Macias, PharmD documented as of this encounter Procedures Procedure Name Priority Date/Time Associated Diagnosis Comments BI MAMMOGRAM SCREENING TOMOSYNTHESIS BILATERAL Routine 11/19/2022 8:11 AM EDT documented in this encounter Results * BI Mammogram Screening Tomosynthesis Bilateral (11/19/2022 8:11 AM EDT) Anatomical Region Laterality Modality Breast Bilateral Mammography 11/19/2022 8:11 AM EDT Narrative 11/20/2022 4:41 PM EDT [facility] [address] [place] [address] Mammography Report Signed Patient: Lisa De La Cruz MR #: [id number] : 1960 Acct:[id number] Age/Sex: 62 / F ADM Date: 11/19/22 Loc: ÁNGEL Attending Dr: Kiara Resendez MD Ordering Physician: Kiara Resendez MD Results: 1Negative Date of Service: 11/19/22 Follow Up: 1 Year From Orig ina Mammogram Procedure(s): MM tomosynthesis screening BI Accession Number(s): [id number] cc: Kiara Resendez MD EXAMINATION: MM SCREENING [...] in OV> 11/20/22 1638 DD/ 0811 TD/TT: Data Developer: SK Procedure Note Donotuseinterpreter, Image - 01/14/2023 [facility] [address] [place] [address] Mammography Report Signed Patient: Gilma De La CruzR #: [id number] : [id number]:[id number] Age/Sex: 62 / FADM Date: 11/19/22 Loc: HO.MAMMO Attending Dr: Kiara Resendez MD Ordering Physician: Kiara Resendez MDResults: 1Negative Date of Service: 11/19/22Follow Up: 1 Year From Orig inal Mammogram Procedure(s): MM tomosynthesis screening BI Accession Number(s): [id number] cc: Kiara Resendez MD EXAMINATION: MM SCREENING [...] in OV> 11/20/22 1638 DD/ 0811 TD/TT: Data Developer: CASSI [facility] External Provider IMG BI PROCEDURES Final Result documented in this encounter Visit Diagnoses Not on filedocumented in this encounter Additional Health Concerns Assessment Noted Time PHQ-9 Depression Total Score: 8 08/25/19 23 10:52 AM EST documented as of this encounter Care Teams Ict Project Manager Relationship Specialty Start Date End Date Kiara Resendez MD [address] [place] [address] PCP - General Family Medicine 07/19/18 Paul Macias, PharmD [address] [place] [address] Pharmacist Internal Medicine 11/20/22 Karlee Sanders Fuel Verification TechnicianParts Representative 02/23/24 documented as of this encounter
--- OUTSIDE RECORDS SUMMARY | 2025-06-08 09:25 | XMS_ITS | Encounter Summary ---
Author Organization [employer] Address 75 [facility] 7t [place] [address] Care Team Providers Care Pest Management Supervisor Name Role Phone Kiara Resendez MD Primary Care Provider [phone] Paul Macias PharmD Unavailable [phone] Reason for Visit * Reason Comments Med Refill Encounter Details Date Type Department Care Team ([facility] st Contact Info) Description 07/14/2024 Refill [facility] MEDICINE 230 [place], [place] [phone] Kiara Resendez MD 230 [place] [address] Social History Tobacco Use Types Packs/Day Years [...] Description 06/29/2025 9:00 AM EST Clinical Support [facility] MEDICINE [address] [place] [address] Sona Moreira, RN 505 [place] [address] 07/27/2025 9:00 AM EST Office Visit [facility] ADULT DENTAL [address] [place] [address] Beni Almodovar DDS [address] [place] [address] 09/04/2025 9:30 AM EST Office Visit [facility] ADULT DENTAL [address] [place] [address] Addie Scanlon 09/24/2025 1:30 PM EDT Office Visit [facility] OPTOMETRY [address] [place] [address] Glenny Pineda OD [address] [place] [address] documented as of this encounter Goals Goal [...] documented as of this encounter Care Teams Pest Management Supervisor Relationship Specialty Start Date End Date Kiara Resendez MD 230 [place] [address] PCP - General Family Medicine 07/19/18 Paul Macias, AlvinD [address] [place] [address] Pharmacist Internal Medicine 11/20/22 Karlee Sanders Manufacturing Business AnalystStudent Union Consultant 02/23/24 documented as of this encounter
--- OUTSIDE RECORDS SUMMARY | 2025-06-08 09:25 | XMS_ITS | Encounter Summary ---
Author Organization [employer] Address 75 [facility] 7t [place] [address] Care Team Providers Care Electronic News Gathering Editor Name Role Phone Kiara Resendez MD Primary Care Provider [phone] Paul Macias PharmD Unavailable Encounter Details Date Type Department Care Team ([facility] st Contact Info) Description 03/15/2025 Refill [facility] MEDICINE [address] [place], [place] [phone] Kiara Resendez MD 230 [place], [place] [phone] Panic disorder; Insomnia, unspecified type Social History Tobacco Use [...] Description 06/29/2025 9:00 AM EST Clinical Support [facility] MEDICINE [address] [place] [address] Sona Moreira, RN [address] [place] [address] 07/27/2025 9:00 AM EST Office Visit [facility] ADULT DENTAL [address] [place] [address] Beni Almodovar DDS [address] [place] [address] 09/04/2025 9:30 AM EST Office Visit [facility] ADULT DENTAL [address] [place] [address] Addie Scanlon 09/24/2025 1:30 PM EDT Office Visit [facility] OPTOMETRY [address] [place] [address] Glenny Pineda OD [address] [place] [address] documented as of this encounter Goals Goal [...] as of this encounter Visit Diagnoses Diagnosis Panic disorder Panic disorder without agoraphobia Insomnia, unspecified type documented in this encounter Additional Health Concerns Assessment Noted Time PHQ-9 Depression Total Score: 10 025 12:21 PM EDT documented as of this encounter Care Teams Electronic News Gathering Editor Relationship Specialty Start Date End Date Kiara Resendez MD [address] [place] [address] PCP - General Family Medicine 07/19/18 Paul Macias PharmD [address] [place] [address] Pharmacist Internal Medicine 11/20/22 Karlee Sanders Stencil InspectorEmergency Room Clerk 02/23/24 documented as of this encounter
--- OUTSIDE RECORDS SUMMARY | 2025-06-08 09:25 | XMS_ITS | Encounter Summary ---
Author Organization [employer] Address 75 [facility] 7t [place] [address] Care Team Providers Care Reference Assistant Name Role Phone Kiara Resendez MD Primary Care Provider [phone] Paul Macias PharmD Unavailable [phone] Encounter Details Date Type Department Care Team ([facility] st Contact Info) Description 12/02/2023 Orders Only [facility] MEDICINE [address] [place], [place] [phone] Kiara Resendez MD 230 [place], [place] [phone] Social History Tobacco Use Types Packs/Day Years [...] Upcoming Encounters Date Type Department Care Team ([facility] st Contact Info) Description 06/29/2025 9:00 AM EST Clinical Support [facility] MEDICINE [address] [place] [address] Sona Moreira RN [address] [place] [address] 07/27/2025 9:00 AM EST Office Visit [facility] ADULT DENTAL [address] [place] [address] Beni Almodovar DDS [address] [place] [address] 09/04/2025 9:30 AM EST Office Visit [facility] ADULT DENTAL [address] [place] [address] Addie Scanlon 09/24/2025 1:30 PM EDT Office Visit [facility] OPTOMETRY [address] [place] [address] Glenny Pineda OD [address] [place] [address] documented as of this encounter Goals Goal Patient Goal Type Associated Problems Recent Progress Patient-Stated? Author Blood Pressure < 140/90 Blood Pressure 132/66(2024 9:51 AM EDT) No Paul Macias, PharmD Eat a balanced, healthy diet Diet No Jess Garcia, RN Hemoglobin A1c < 7 Result Component 7.8( 9:24 AM EDT) No Paul Macias, PharmD Quit using tobacco (cigarettes, smokeless, etc) [...] AM EDT Narrative 12/27/2023 1:51 PM EDT [facility] [address] [place] [address] Mammography Report Signed Patient: Lisa De La Cruz MR #: [id number] : 1960 Acct:[id number] Age/Sex: 63 / F ADM Date: 12/02/23 Loc: ÁNGEL Attending Dr: Kiara Resendez MD Ordering Physician: Kiara Resendez MD Results: 1Negative Date of Service: 12/02/23 Follow Up: 1 Year From [facility] Mammogram Procedure(s): MM tomosynthesis screening BI Accession Number(s): [id number] cc: Kiara Resendez MD EXAMINATION: MM SCREENING [...] in OV> 12/27/23 1347 DD/ 0840 TD/TT: Fisher: Procedure Note Donotuseinterpreter, Image - 12/27/2023 [facility] [address] [place] [address] Mammography Report Signed Patient: Matthias De La Cruz #: [id number] : [id number]:[id number] Age/Sex: 63 / FADM Date: 12/02/23 Loc: ÁNGEL Attending Dr: Kiara Resendez MD Ordering Physician: Kiara Resendez MDResults: 1Negative Date of Service: 12/02/23Follow Up: 1 Year From Orig ina Mammogram Procedure(s): MM tomosynthesis screening BI Accession Number(s): [id number] cc: Kiara Resendez MD EXAMINATION: MM SCREENING [...] in OV> 12/27/23 1347 DD/ 0840 TD/TT: Fisher: us Kiara Resendez MD IMG BI PROCEDURES Final Result documented in this encounter Visit Diagnoses Not on filedocumented in this encounter Additional Health Concerns Assessment Noted Time PHQ-9 Depression Total Score: 8 08/25/19 23 10:52 AM EST documented as of this encounter Care Teams Reference Assistant Relationship Specialty Start Date End Date Kiara Resendez MD 230 [place] [address] PCP - General Family Medicine 07/19/18 Paul Macias, AlvinD 230 [place] [address] Pharmacist Internal Medicine 11/20/[address] TechOxygen Equipment Preparer 02/23/24 documented as of this encounter
--- OUTSIDE RECORDS SUMMARY | 2025-06-08 09:25 | XMS_ITS | Encounter Summary ---
Author Organization [employer] Address 75 [facility] 7t [place] [address] Care Team Providers Care Mining Machinery Assembler Name Role Phone Kiara Resendez MD Primary Care Provider [phone] Paul Macias PharmD Unavailable [phone] Encounter Details Date Type Department Care Team ([facility] st Contact Info) Description 02/16/2024 Orders Only [facility] MEDICINE 230 [place], [place] [phone] Kiara Resendez MD [address] [place], [place] [phone] Social History Tobacco Use Types Packs/Day Years [...] Upcoming Encounters Date Type Department Care Team ([facility] st Contact Info) Description 06/29/2025 9:00 AM EST Clinical Support [facility] MEDICINE [address] [place] [address] Sona Moreira RN [address] [place] [address] 07/27/2025 9:00 AM EST Office Visit [facility] ADULT DENTAL [address] [place] [address] Beni Almodovar DDS [address] [place] [address] 09/04/2025 9:30 AM EST Office Visit [facility] ADULT DENTAL [address] [place] [address] Addie Scanlon 09/24/2025 1:30 PM EDT Office Visit [facility] OPTOMETRY [address] [place] [address] Glenny Pineda OD [address] [place] [address] documented as of this encounter Goals Goal [...] documented as of this encounter Care Teams Mining Machinery Assembler Relationship Specialty Start Date End Date Kiara Resendez MD [address] [place] [address] PCP - General Family Medicine 07/19/18 Paul Macias, AlvinD [address] [place] [address] Pharmacist Internal Medicine 11/20/22 Karlee Sanders Cellular Phone RepairerVb Developer 02/23/24 documented as of this encounter
--- OUTSIDE RECORDS SUMMARY | 2025-06-08 09:25 | XMS_ITS | Encounter Summary ---
Author Organization [employer] Address 75 [facility] 7t [place] [address] Care Team Providers Care Snack Stewardess Name Role Phone Kiara Resendez MD Primary Care Provider [phone] Paul Macias PharmD Unavailable [phone] Encounter Details Date Type Department Care Team ([facility] st Contact Info) Description 12/17/2023 Orders Only [facility] MEDICINE [address] [place], [place] [phone] Kiara Resendez MD [address] [place], [place] [phone] Social History Tobacco Use Types Packs/Day Years [...] Upcoming Encounters Date Type Department Care Team ([facility] st Contact Info) Description 06/29/2025 9:00 AM EST Clinical Support [facility] MEDICINE [address] [place] [address] Sona Moreira RN [address] [place] [address] 07/27/2025 9:00 AM EST Office Visit [facility] ADULT DENTAL [address] [place] [address] Beni Almodovar DDS [address] [place] [address] 09/04/2025 9:30 AM EST Office Visit [facility] ADULT DENTAL [address] [place] [address] Addie Scanlon 09/24/2025 1:30 PM EDT Office Visit [facility] OPTOMETRY [address] [place] [address] Glenny Pineda OD [address] [place] [address] documented as of this encounter Goals Goal [...] documented as of this encounter Care Teams Snack Stewardess Relationship Specialty Start Date End Date Kiara Resendez MD [address] [place] [address] PCP - General Family Medicine 07/19/18 Paul Macias, AlvinD [address] [place] [address] Pharmacist Internal Medicine 11/20/22 Karlee Sanders Pressurization MechanicHollow Handle Bench Worker 02/23/24 documented as of this encounter
--- OUTSIDE RECORDS SUMMARY | 2025-06-08 09:26 | XMS_ITS | Encounter Summary ---
Author Organization [employer] Address 75 [facility] 7t [place] [address] Care Team Providers Care Quality Control Scientist Name Role Phone Kiara Resendez MD Primary Care Provider [phone] Paul Macias PharmD Unavailable [phone] Reason for Visit * Reason Comments Med Refill Encounter Details Date Type Department Care Team ([facility] st Contact Info) Description 01/05/2023 Refill [facility] MEDICINE 230 [place], [place] [phone] Carlene Myrick MD 230 [place], [place] [phone] Chronic low back pain, unspecified back pain [...] 06/29/2025 9:00 AM EST Clinical Support [facility] MEDICINE [address] [place] [address] Sona Moreira, JEFF [address] [place] [address] 07/27/2025 9:00 AM EST Office Visit [facility] ADULT DENTAL [address] [place] [address] Beni Almodovar DDS [address] [place] [address] 09/04/2025 9:30 AM EST Office Visit [facility] ADULT DENTAL [address] [place] [address] Addie Scanlon 09/24/2025 1:30 PM EDT Office Visit [facility] OPTOMETRY [address] [place] [address] TarGlenny balderas, OD [address] [place] [address] documented as of this encounter Goals Goal Patient Goal Type Associated Problems Recent Progress Patient-Stated? Author Blood Pressure < 140/90 Blood Pressure 132/66(2024 9:51 AM EDT) No Paul Macias PharmD Eat a balanced, healthy diet Diet No Jess Garcia, RN Hemoglobin A1c < 7 Result Component 7.8( 9:24 AM EDT) No Paul Macias PharmLani Quit using tobacco (cigarettes, smokeless, etc) Tobacco Use No Paul Macias PharmD documented as of this encounter Visit Diagnoses Diagnosis Chronic low back pain, unspecified back pain laterality, unspecified whether sciatica present documented in this encounter Additional Health Concerns Assessment Noted Time PHQ-9 Depression Total Score: 8 08/25/19 23 10:52 AM EST documented as of this encounter Care Teams Quality Control Scientist Relationship Specialty Start Date End Date Kiara Resendez MD [address] [place] [address] PCP - General Family Medicine 07/19/18 Paul Macias, AlvinD [address] [place] [address] Pharmacist Internal Medicine 11/20/22 Karele Sanders Network AnalystPyridine Recovery Operator 02/23/24 documented as of this encounter
--- OUTSIDE RECORDS SUMMARY | 2025-06-08 09:26 | XMS_ITS | Clinical Summary ---
Author Organization [employer] Address [address] [facility] [address] [place] [address] Care Team Providers Care Computer Laboratory Technician Name Role Phone Kiara Resendez MD Primary Care Provider [phone] Paul Macias PharmD Unavailable [phone] Allergies No known active allergies Medications * This document contains information received from the source organization and may not represent a complete record from that organization. [place]ul[place] [facility] [place] it as directed 022 Active rosuvastatin (Crestor) 20 MG tablet Take 1 tablet (20 mg) by mouth Once per day. 30 tablet 11 024 2024 Active loratadine (Claritin) 10 MG tabletIndications :Allergic rhinitis, unspecified seasonality, unspecified trigger TAKE 1 TABLET BY MOUTH EVERY DAY 90 tablet 1 025 Active budesonide-formot jason (Symbicort) 80-4.5 MCG/ACT inhaler Two puffs twice daily, and may use additional 1-2 puff every 4 hours as needed for asthma symptoms. Maximum 12 puffs per day. Rinse mouth with water after use. 1 each 11 5 11:29 AM EST 025 Active acetaminophen (Tylenol) 500 MG tabletIndications :Dental root caries Take 1 tablet (500 mg) by mouth every 6 (six) hours if needed for mild pain. 20 tablet 025 Active Additional Information Patient not taking.Reported on 02/28/2025 metFORMIN XR (Glucophage-XR) 500 MG 24 hr tabletIndications :Type 2 diabetes mellitus with hyperglycemia, without long-term current use of insulin (HCC) TAKE 2 TABLETS BY MOUTH TWICE DAILY IN THE MORNING AND EVENING. Do not crush, chew, or split. 360 tablet 3 Active alendronate (Fosamax) 70 MG tabletIndications :Osteoporosis, unspecified osteoporosis type, unspecified pathological fracture presence Take 1 tablet (70 mg) by mouth every 7 (seven) days. Take in the morning with a full glass of water, on an empty stomach, and do not take anything else by mouth or lie down for the next 30 min. 4 tablet 025 2025 Active losartan (Cozaar) 25 MG tabletIndications :Essential hypertension Take 0.5 tablets (12.5 mg) by mouth Once per day. 15 tablet 2025 Active nicotine (Nicoderm CQ) 14 MG/24HR patchIndications: Tobacco use Place 1 patch on the skin 1 (one) time each day at the same time. 21 patch Active nicotine polacrilex (Nicotine Mini) 4 MG lozengeIndication s:Tobacco use Dissolve 1 lozenge (4 mg) in the mouth every 1-2 (two) hours if needed for smoking cessation 72 lozenge 3 Active Multiple Vitamin (Multivitamin) tabletIndications :Vitamin deficiency Take 1 tablet by mouth in the morning. 90 tablet Active fenofibrate micronized (LoFibra) 200 MG capsuleIndication s:Mixed hyperlipidemia Take 1 capsule (200 mg) by mouth in the evening. 90 capsule Active hydroCHLOROthiazi de (HYDRODiuril) 25 MG tablet Take 1 tablet (25 mg) by mouth in the morning. 90 tablet Active Aspirin Low Dose 81 MG EC tabletIndications :Type 2 diabetes mellitus with hyperglycemia, without long-term current use of insulin (HCC) Take 1 tablet (81 mg) by mouth in the morning. 90 tablet 1 Active Blood Glucose Monitoring Suppl (FreeStyle Murray Lite) w/Device kitIndications:Ty pe 2 diabetes mellitus with diabetic polyneuropathy, without long-term current use of insulin (HCC) Use to test blood sugar as directed 1 kit Active Lancets miscIndications:T ype 2 diabetes mellitus with diabetic polyneuropathy, without long-term current use of insulin ([facility]) Use to test blood sugar 1 time daily 100 each 3 5 11:29 AM EST 025 Active glucose blood (FREESTYLE LITE) test stripIndications: Type 2 diabetes mellitus with diabetic polyneuropathy, without long-term current use of insulin ([facility]) Use to test blood sugar 1 time daily 100 each 3 5 11:29 AM EST 025 2025 Active Calcium Carb-Cholecalcife rol 600-10 MG-MCG tablet TAKE 1 TABLET BY MOUTH TWICE DAILY IN THE MORNING AND IN THE EVENING 180 tablet 3 025 Active omeprazole (PriLOSEC) [address] capsuleIndication s:Gastroesophagea l reflux disease, unspecified whether esophagitis present TAKE 1 CAPSULE BY MOUTH EVERY MORNING BEFORE A MEAL 90 capsule 3 025 Active cholecalciferol (Vitamin D-3) 25 MCG tablet TAKE 1 TABLET BY MOUTH EVERY MORNING 90 tablet 3 025 Active Dulaglutide (Trulicity) 3 MG/0.5ML solution auto-injector Inject 3 mg under the skin 1 (one) time per week. 2 mL 025 Active Neomycin-Polymyxi n-HC 1 % solution Administer 3 drops into affected ear(s) 4 times daily. 10 mL 025 Active Spacer/Aero-Holdi ng Chambers (OptiChamber Lizzeth) deviceIndications :Asthma with COPD (CMS/HCC) ([facility]) Use with inhaler as directed 1 each 025 Active lidocaine (Lidoderm) 5 % patchIndications: Chronic low back pain, unspecified back pain laterality, unspecified whether sciatica present APPLY 1 PATCH TOPICALLY TO SKIN, LEAVE ON FOR 12 HOURS AND OFF FOR 12 HOURS DIRECTED 30 patch 1 025 Active LORazepam (Ativan) 1 MG tabletIndications :Panic disorder Take 1 tablet (1 mg) by mouth 2 times daily. Do not start before May 11, 2025. 60 tablet 025 Active cyclobenzaprine (Flexeril) 10 MG tabletIndications :Fibromyalgia,Chr onic low back pain, unspecified back pain laterality, unspecified whether sciatica present TAKE 1 TABLET BY MOUTH TWICE DAILY NEEDED FOR MUSCLE SPASMS 60 tablet 3 025 Active Alcohol Swabs (Alcohol Prep) 70 % pads USE DIRECTED ONCE DAILY 100 each 11 025 Active albuterol (2.5 MG/3ML) 0.083% nebulizer solutionIndicatio ns:Asthma with COPD (CMS/HCC) (HCC) INHALE 1 AMPULE USING A NEBULIZER FOUR TIMES DAILY NEEDED SHORTNESS OF BREATH 90 mL 1 025 Active QUEtiapine (SEROquel) 50 MG tabletIndications :Insomnia, unspecified type TAKE 1 TABLET BY MOUTH AT BEDTIME 30 tablet 1 5 11:29 AM EST 025 Active sertraline (Zoloft) 50 MG tabletIndications :Recurrent major depressive episodes, moderate (CMS/HCC) (HCC) TAKE 1 TABLET BY MOUTH EVERY MORNING 30 tablet 1 5 11:29 AM EST 025 Active pregabalin (Lyrica) 100 MG capsuleIndication s:Peripheral polyneuropathy TAKE 1 CAPSULE BY MOUTH TWICE DAILY IN THE MORNING AND IN THE EVENING 60 capsule 3 5 11:29 AM EST 025 Active zolpidem (Ambien) 5 MG tabletIndications :Insomnia, unspecified type TAKE 1 TABLET BY MOUTH EVERY DAY AT BEDTIME NEEDED FOR SLEEP 30 tablet 025 Active Alcohol Swabs (Alcohol Prep) 70 % pads USE DIRECTED DAILY 100 each 11 024 2024 Discontinued albuterol (2.5 MG/3ML) 0.083% nebulizer solutionIndicatio ns:Asthma with COPD (CMS/HCC) (HCC) INHALE 1 AMPULE USING A NEBULIZER FOUR TIMES DAILY NEEDED SHORTNESS OF BREATH 90 mL 1 025 2024 Discontinued pregabalin (Lyrica) 100 MG capsuleIndication s:Peripheral polyneuropathy TAKE 1 CAPSULE BY MOUTH TWICE DAILY IN THE MORNING AND IN THE EVENING 60 capsule 3 025 2024 Discontinued sertraline (Zoloft) 50 MG tabletIndications :Recurrent major depressive episodes, moderate (CMS/HCC) (HCC) TAKE 1 TABLET BY MOUTH EVERY MORNING 30 tablet 1 025 2024 Discontinued QUEtiapine (SEROquel) 50 MG tabletIndications :Insomnia, unspecified type TAKE 1 TABLET BY MOUTH AT BEDTIME 30 tablet 1 025 2024 Discontinued zolpidem (Ambien) 5 MG tabletIndications :Insomnia, unspecified type Take 1 tablet (5 mg) by mouth if needed at bedtime for sleep. Do not start before May 11, 2025. 30 tablet 025 2024 Discontinued Active Problems Patient Care Coordination No te Formatting of this note migh t be different from the original. [id number] Shikha Reyes C3/CM Marilu Stafford RN Problem Noted Date Diagnosed Date Smoking greater than 20 pack years 03/23/2025 Assessment & Plan (03/23/2025 3:32 PM EDT): - Started smoking at 14. - Smoking 6-8 cigs per day. - Hx pulmonary nodule; pneumonia; asthma / COPD - refer to lung cancer screening Primary insomnia 12/13/2024 Dental root caries 09/14/2024 Symptomatic apical periodontitis 07/17/2024 Dental plaque 06/26/2024 Edentulous maxilla 09/03/2023 Otitis externa 08/19/2023 Assessment & Plan (03/21/2025 9:01 AM EDT): - recurrent - local reaction to Ciprodex - cortisporin otic - avoid irritation - refer back to ENT Assessment & Plan (08/19/2023 9:14 AM EST): [...] Quervain's tenosynovitis, right 02/19/2023 Lumbar radiculopathy 02/19/2023 oil heaterman (current) use of oral hypoglycemic kathya gs 11/19/2022 Long-term current use of inj ectable noninsulin antidiabetic medication 11/19/2022 Dental caries 10/19/2022 Type 2 diabetes mellitus 07/26/2022 Assessment & Plan (03/23/2025 2:40 PM EDT): -A1C 7.8% on 03/20/25, increased from 7.2% on 12/12/24 -Continue metformin 1000mg BID -Increase dulaglutide to 3.0 mg weekly. Consider switching to tirzepatide. -Discontinued Glipizide 5mg with meals bid to avoid hypoglycemia with GLP1RA dose increase -previously on Farxiga 5 mg daily but discontinued due to side effects. -Check blood glucose every day -Emphasized the importance of lifestyle modifications. -Pt advised to reduce sugar in coffee or use Splenda. -Last eye exam: Aug 2022 -Last foot exam: Jun 2024 -Last microalbumin test: 07/13/24 no microalbuminuria -Last lipid profile: 07/13/24 total cholesterol 141; triglyceride 286; HDL 29; LDL 55 -Last dental exam: [facility], has dental issues -Immunizations: Up to date Assessment & Plan (12/17/2024 5:22 AM EDT): -A1C 7.2% on 12/12/24, increase from 6.5% on 08/21/24 -Continue metformin 1000mg BID -Increase dulaglutide 1.5 mg weekly. -Discontinue Glipizide 5mg with meals BID -previously on Farxiga 5 mg daily but discontinued due to side effects. -Check blood glucose every day -Emphasized the importance of lifestyle modifications. -Pt advised to reduce sugar in coffee or use Splenda. -Last eye exam: Aug 2022 -Last foot exam: Jun 2024 -Last microalbumin test: 07/13/24 no microalbuminuria -Last lipid profile: 07/13/24 total cholesterol 141; triglyceride 286; HDL 29; LDL 55 -Last dental exam: [facility], has dental issues -Immunizations: Up to date Assessment & Plan (10/02/2024 11:51 AM EDT): [...] -Last lipid profile: 07/13/24 -Last dental exam: [facility], has dental issues -Immunizations: Up to date [...] -Last lipid profile: 07/13/24 -Last dental exam: [facility], has dental issues -Immunizations: Up to date [...] HDL 23; LDL 83 -Last dental exam: [facility], has dental issues -Immunizations: Up to date [...] HDL 23; LDL 83 -Last dental exam: [facility], has dental issues -Immunizations: Up to date [...] HDL 30; LDL 126 -Last dental exam: [facility], has dental issues -Immunizations: Up to date [...] HDL 30; LDL 57 -Last dental exam: [facility], has dental issues -Immunizations: Up to date [...] HDL 30; LDL 57 -Last dental exam: [facility], has dental issues -Immunizations: Up to date Pulmonary nodules 07/26/2022 Assessment & Plan (03/20/2025 4:55 AM EDT): -CT scan on 10/12/20, stable subcentral pulmonary nodule, no new suspicious nodules noted -CT scan on 07/01/21 : stable 7mm right upper lobe, lung nodule -CT Scan on 08/10/22; stable nodues, no new suspicious nodules noted -patient is still smoking; will update CT scan Assessment & Plan (12/12/2024 8:54 AM EDT): -CT scan on 10/12/20, stable subcentral pulmonary nodule, no new suspicious nodules noted -CT scan on 07/01/21 : stable 7mm right upper lobe, lung nodule -CT Scan on 08/10/22; stable nodues, no new suspicious nodules noted -patient is still smoking; will update CT scan Assessment & Plan (10/02/2024 11:50 AM EDT): [...] upper lobe, lung nodule -CT Scan on 1/23/23; stable nodues, no new suspicious nodules noted [...] 2012 Panic disorder 06/16/2022 Assessment & Plan (03/21/2025 9:03 AM EDT): - continue judicious use of clonazepam Assessment & Plan (10/02/2024 11:51 AM EDT): Will refer to behavioral health service Assessment & Plan (08/25/2022 11:08 AM EST): Previously on Clonazepam and switched to Panzram. Intermittent explosive disorder 06/16/2022 Assessment & Plan (03/23/2025 2:41 PM EDT): -Deep breathing exercise Assessment & Plan (07/20/2024 5:23 AM EST): -Deep breathing exercise Assessment & Plan (09/05/2022 3:30 AM EST): -Deep breathing exercise Assessment & Plan (07/26/2022 1:25 PM EST): -Deep breathing exercise -tried today in the clinic Prolapse of female genital organs 06/16/2022 Assessment & Plan (11/19/2022 9:57 AM EDT): -Followed by [facility] Assessment & Plan (08/25/2022 11:09 AM EST): -Followed by [facility] Assessment & Plan (07/26/2022 1:02 PM EST): -Followed by [facility] Recurrent major depressive episodes, moderate ([facility] MS/HCC) 06/16/2022 Assessment & Plan (03/21/2025 9:03 AM EDT): -PHQ9 score 10 and GAD7 score 12 on 12/12/24, 11 and GAD7 score 7 in Jun 2024 -Previous [facility] provider: Dr. Rosales in [facility], pt has a therapist. Upcoming appointment with a new prescriber. -Dx is unclear. Possible bipolar. Concurrent intermittent explosive disorder / impulse control disorder. [facility] providers also assigned Rogers 2 Dx. -Continue current medications. Assessment & Plan (12/17/2024 5:26 AM EDT): -PHQ9 score 10 and GAD7 score 12 on 12/12/24, 11 and GAD7 score 7 in Jun 2024 -Previous [facility] provider: Dr. Rosales in [facility], pt has a therapist. Upcoming appointment with a new prescriber. -Dx is unclear. Possible bipolar. Concurrent intermittent explosive disorder / impulse control disorder. [facility] providers also assigned Rogers 2 Dx. -Continue current medications. Discussed about judicious use. -Discussed about side effects of zolpidem, and reassured that it was being discontinued for long-term benefits. Assessment & Plan (12/01/2024 12:23 PM EDT): [...] identified as strength and her daughter and shinto community as protective factors. Pt has an upcoming appointment with Steven Dominique for medication management. clinician will provide additional support for current MH needs. Pt agreed with plan. Assessment & Plan (10/02/2024 11:52 AM EDT): -PHQ9 score 11 and GAD7 score 7 on 07/20/24. Patient seems to be depressed and stressed. -Previous [facility] provider: Dr. Rosales in [facility], pt has a therapist. Upcoming appointment with a new prescriber. -Dx is unclear. Possible bipolar. Concurrent intermittent explosive disorder / impulse control disorder. [facility] providers also assigned Rogers 2 Dx. -Continue current medications. Discussed about judicious use. -Discussed about side effects of zolpidem, and reassured that it was being discontinued for long-term benefits. -Will refer to a new service Assessment & Plan (07/20/2024 5:26 AM EST): -PHQ9 score 11 and GAD7 score 7 today. Patient seems to be depressed and stressed. -Previous [facility] provider: Dr. Rosales in [facility], pt has a therapist. Upcoming appointment with a new prescriber. -Dx is unclear. Possible bipolar. Concurrent intermittent explosive disorder / impulse control disorder. [facility] providers also assigned Rogers 2 Dx. -Continue current medications. Discussed about judicious use. -Discussed about side effects of zolpidem, and reassured that it was being discontinued for long-term benefits. Assessment & Plan (08/19/2023 9:15 AM EST): -Current [facility] provider: Dr. Rosales in [facility], pt has a therapist -Dx is unclear. Possible bipolar. Concurrent intermittent explosive disorder / impulse control disorder. [facility] providers also assigned Rogers 2 Dx. -Continue current medications prescribed by psychiatrist. -Encouraged to speak with her therapist regarding to her medications and the reason why she disagrees with her psychiatrist. -Discussed about side effects of zolpidem, and reassured that it was being discontinued for long-term benefits. Assessment & Plan (05/31/2023 12:11 PM EST): -Current [facility] provider: Dr. Rosales in [facility], pt has a therapist -Dx is unclear. Possible bipolar. Concurrent intermittent explosive disorder / impulse control disorder. [facility] providers also assigned Rogers 2 Dx. -Continue current medications prescribed by psychiatrist. -Encouraged to speak with her therapist regarding to her medications and the reason why she disagrees with her psychiatrist. -Discussed about side effects of zolpidem, and reassured that it was being discontinued for long-term benefits. Assessment & Plan (08/25/2022 11:10 AM EST): -Current [facility] provider: Dr. Rosales in [facility], pt has a therapist -Dx is unclear. Possible bipolar. Concurrent intermittent explosive disorder / impulse control disorder. [facility] providers also assigned Rogers 2 Dx. -Continue current medications prescribed by psychiatrist. -Encouraged to speak with her therapist regarding to her medications and the reason why she disagrees with her psychiatrist. -Discussed about side effects of zolpidem, and reassured that it was being discontinued for long-term benefits. Assessment & Plan (07/26/2022 1:24 PM EST): -Current [facility] provider: Dr. Rosales in [facility], pt has a therapist -Dx is unclear. Possible bipolar. Concurrent intermittent explosive disorder / impulse control disorder. [facility] providers also assigned Rogers 2 Dx. -Continue current medications prescribed by psychiatrist. -Encouraged to speak with her therapist regarding to her medications and the reason why she disagrees with her psychiatrist. -Discussed about side effects of zolpidem, and reassured that it was being discontinued for long-term benefits. SI (sacroiliac) joint dysfunction 06/16/2022 Assessment & Plan (05/31/2023 12:07 PM EST): [facility] -MRI on 12/10/21: Lumbar Spondylosis, SIJ Dysfunction, sacrococcygeal disorder. -Pt received SI Joint Injection on 01/13/22 - Assessment & Plan (11/19/2022 10:00 AM EDT): [facility] -MRI on 12/10/21: Lumbar Spondylosis, SIJ Dysfunction, sacrococcygeal disorder. -Pt received SI Joint Injection on 01/13/22 -Pt received MAGNO in Aug 2022 Assessment & Plan (08/25/2022 11:11 AM EST): [facility] -MRI on 12/10/21: Lumbar Spondylosis, SIJ Dysfunction, sacrococcygeal disorder. -Pt received SI Joint Injection on 01/13/22 -Pt had f/u on 02/12/22, is being scheduled MAGNO. Urinary incontinence, mixed 06/16/2022 Assessment & Plan (07/20/2024 5:19 AM EST): -Followed by [facility] -continue mribegron as prescribed Assessment & Plan (11/09/2022 2:30 PM EDT): -Followed by [facility] -continue mribegron as prescribed Assessment & Plan (08/25/2022 11:12 AM EST): -Followed by [facility] -continue mribegron as prescribed Assessment & Plan (07/26/2022 1:02 PM EST): -Followed by [facility] -continue mribegron as prescribed Essential hypertension 05/09/2015 Assessment & Plan (03/20/2025 4:50 AM EDT): -Goal BP < 130/80 per ACC/AHA -BP usually within acceptable range -Co-managed with our pharmacist -Advised to check BP at home. -Encouraged to work on life style modifications and continue current medication. -Current medications: HCTZ 25 mg daily; losartan 12.5 mg daily Assessment & Plan (12/17/2024 5:17 AM EDT): -Goal BP < 140/90 per JNC-8, < 130/80 per ACC/AHA. -BP usually within acceptable range -Advised to check BP at home. -Encouraged to work on life style modifications and continue current medication. -Current medications: HCTZ 25 mg daily; lisinopril 2.5 mg daily. Changing lisinopril to losartan 25 mg daily -referred to [facility] Assessment & Plan (10/02/2024 11:50 AM EDT): -Goal BP < 140/90 per JNC-8, < 130/80 per ACC/AHA. -BP usually within acceptable range -Advised to check BP at home. -Encouraged to work on life style modifications and continue current medication. -Current medications: HCTZ 25 mg daily; lisinopril 2.5 mg daily. -referred to [facility] Assessment & Plan (08/21/2024 9:26 PM EST): -Goal BP < 140/90 per JNC-8, < 130/80 per ACC/AHA. -BP usually within acceptable range -Advised to check BP at home. -Encouraged to work on life style modifications and continue current medication. -Current medications: HCTZ 25 mg daily; lisinopril 2.5 mg daily. -referred to [facility] Assessment & Plan (07/20/2024 5:19 AM EST): -Goal BP < 140/90 per JNC-8, < 130/80 per ACC/AHA. -BP usually within acceptable range -Advised to check BP at home. -Encouraged to work on life style modifications and continue current medication. -Current medications: HCTZ 25 mg daily; lisinopril 2.5 mg daily. -referred to [facility] Assessment & Plan (08/19/2023 5:49 AM EST): -Goal BP < 140/90 per JNC-8, < 130/80 per ACC/AHA. -BP usually within acceptable range, but elevated today. Possibly due to being upset. -Advised to check BP at home. -Encouraged to work on life style modifications and continue current medication. -Current medications: HCTZ 25 mg daily; lisinopril 2.5 mg daily. -referred to [facility] Assessment & Plan (05/31/2023 12:06 PM EST): -Goal BP < 140/90 per JNC-8, < 130/80 per ACC/AHA. -BP usually within acceptable range, but elevated today. Possibly due to being upset. -Advised to check BP at home. -Encouraged to work on life style modifications and continue current medication. -Current medications: HCTZ 25 mg daily; lisinopril 2.5 mg daily. -referred to [facility] Assessment & Plan (11/09/2022 2:28 PM EDT): -Goal BP < 140/90 per JNC-8, < 130/80 per ACC/AHA. -BP usually within acceptable range, but elevated today. Possibly due to being upset. -Advised to check BP at home. -Encouraged to work on life style modifications and continue current medication. -Current medications: HCTZ 25 mg daily; lisinopril 2.5 mg daily. -refer to [facility] Assessment & Plan (08/25/2022 11:02 AM EST): -Goal BP < 140/90 per JNC-8, < 130/80 per ACC/AHA. -BP usually within acceptable range, but elevated today. Possibly due to being upset. -Advised to check BP at home. -Encouraged to work on life style modifications and continue current medication. -Current medications: HCTZ 25 mg daily; lisinopril 2.5 mg daily. -refer to [facility] Assessment & Plan (07/26/2022 12:59 PM EST): -Goal BP < 140/90 per JNC-8, < 130/80 per ACC/AHA. -BP usually within acceptable range, but elevated today. Possibly due to being upset. -Advised to check BP at home. -Encouraged to work on life style modifications and continue current medication. -Current medications: HCTZ 25 mg daily; lisinopril 2.5 mg daily. -refer to [facility] Tobacco use 05/09/2015 Assessment & Plan (03/21/2025 9:04 AM EDT): -Previously prescribed nicotine replacement -Continue working on smoking cessation -Nicotine replacement has been prescribed, yet patient states she will not be able to stop smoking unless her partner stop smoking in their home -Referred to smoking cessation program since she is re-referred to [facility]. Assessment & Plan (12/17/2024 5:24 AM EDT): -Previously prescribed nicotine replacement -Continue working on smoking cessation -Nicotine replacement has been prescribed, yet patient states she will not be able to stop smoking unless her partner stop smoking in their home -Referred to smoking cessation program since she is re-referred to [facility]. - Invited to tobacco use education group in [facility] Assessment & Plan (10/02/2024 8:59 PM EDT): -Previously prescribed nicotine replacement -Continue working on smoking cessation -Nicotine replacement has been prescribed, yet patient states she will not be able to stop smoking unless her partner stop smoking in their home - Invited to tobacco use education group in [facility] Assessment & Plan (08/21/2024 9:33 PM EST): [...] Plan (09/05/2022 3:42 AM EST): -followed by cream tester -contraindication for anticholinergics (medications for OAB and psych; not on LAMA) Asthma with COPD ([facility]) 09/07/2012 Assessment & Plan (03/21/2025 9:04 AM EDT): -Severe exacerbation 09/25/21, with SARS Cov-2 -Most recent severe exacerbation on 07/27/24-07/28/24, [facility] hospitalization with influenza A -Frequency of exacerbation 4-5 times per year. -No Hx intubation -Hx pneumonia -Continue budesonide / formoterol (Symbicort) for both maintenance and quick relief. -Emphasized the importance of adherence to medication and smoking cessation. Assessment & Plan (12/12/2024 8:54 AM EDT): -Severe exacerbation 09/25/21, with SARS Cov-2 -Most recent severe exacerbation on 07/27/24-07/28/24, [facility] hospitalization with influenza A -Frequency of exacerbation 4-5 times per year. -No Hx intubation -Hx pneumonia -Start budesonide / formoterol (Symbicort) for both maintenance and quick relief. -Emphasized the importance of adherence to medication and smoking cessation. Assessment & Plan (10/02/2024 11:50 AM EDT): -Severe exacerbation 09/25/21, with SARS Cov-2 -Most recent severe exacerbation on 07/27/24-07/28/24, [facility] hospitalization with influenza A -Frequency of exacerbation 4-5 times per year. -No Hx intubation -Hx pneumonia -Start budesonide / formoterol (Symbicort) for both maintenance and quick relief. -Emphasized the importance of adherence to medication and smoking cessation. Assessment & Plan (08/21/2024 9:26 PM EST): -Severe exacerbation 09/25/21, with SARS Cov-2 -Most recent severe exacerbation on 07/27/24-07/28/24, [facility] hospitalization with influenza A -Frequency [...] cessation. Mixed hyperlipidemia 04/22/2012 Assessment & Plan (03/20/2025 4:53 AM EDT): -Significant hypertriglyceridemia. -Medications: Rosuvastatin 20mg qhs; Fish oil 4 g daily; fenofibrate 200 mg daily -Last lipid profile: 07/13/24 total cholesterol 141; triglyceride 286; HDL 29; LDL 55 -Continue working on lifestyle modification -Continue current medication Assessment & Plan (12/13/2024 1:50 PM EDT): -Significant hypertriglyceridemia. -Medications: Rosuvastatin mg qhs; Fish oil 4 g daily; fenofibrate 200 mg daily -Last lipid profile: 07/13/24 total cholesterol 141; triglyceride 286; HDL 29; LDL 55 -Continue working on lifestyle modification -Continue current medication Assessment & Plan (08/21/2024 9:34 PM EST): [...] low back pain 01/22/2012 Assessment & Plan (12/12/2024 8:54 AM EDT): -[facility] -MRI on 12/10/21: Lumbar Spondylosis, SIJ Dysfunction, sacrococygeal disorder. -Pt receioved SI Joint Injection on 01/13/22 -Pt received MANGO in Aug 2022. Assessment & Plan (08/21/2024 9:35 PM EST): -[facility] followed [facility] -MRI on 12/10/21: Lumbar Spondylosis, SIJ Dysfunction, sacrococygeal disorder. -Pt receioved SI Joint Injection on 01/13/22 -Pt received MAGNO in Aug 2022. Assessment & Plan (11/19/2022 10:01 AM EDT): -Followed by [facility] -MRI on 12/10/21: Lumbar Spondylosis, SIJ Dysfunction, sacrococygeal disorder. -Pt receioved SI Joint Injection on 01/13/22 -Pt received MAGNO in Aug 2022. -Pt requests to be referred back to [facility] pain management. Assessment & Plan (08/25/2022 11:02 AM EST): -Followed [facility] -MRI on 12/10/21: Lumbar Spondylosis, SIJ Dysfunction, sacrococygeal disorder. -Pt receioved SI Joint Injection on 01/13/22 -Pt had f/u on 02/12/22, is being scheduled MAGNO. Assessment & Plan (07/26/2022 1:13 PM EST): -Followed [facility] -MRI on 12/10/21: Lumbar Spondylosis, SIJ Dysfunction, sacrococygeal disorder. -Pt receioved SI Joint Injection on 01/13/22 -Pt had f/u on 02/12/22, is being scheduled MAGNO. Fibromyalgia 01/22/2012 Assessment & Plan (03/23/2025 9:02 AM EDT): - previously Followed by [facility] Pain Management, seen on 11/17/21 [...] to restart. Pt declined -Discontinued tramadol in 2018. -Script for TENS done -Advised to stay physically active. Assessment & Plan (12/12/2024 8:54 AM EDT): - previously Followed by [facility] Pain Management, seen on 11/17/21 [...] to restart. Pt declined -Discontinued tramadol in 2018. -Script for TENS done -Advised to stay physically active. Assessment & Plan (08/21/2024 9:29 PM EST): - previously Followed by [facility] Pain Management, seen on 11/17/21 [...] to restart. Pt declined -Discontinued tramadol in 2018. -Script for TENS done -Advised to stay physically active. Assessment & Plan (07/20/2024 5:20 AM EST): Followed by [facility] Pain Management, seen on 11/17/21 [...] Plan (05/31/2023 12:07 PM EST): Followed by [facility] Pain Management, seen on 11/17/21 [...] to restart. Pt declined -Discontinued tramadol in 2018. -Script for TENS sent to [facility] again in January 2020, but she needed to try TENS with PT. She now completed 2nd round of PT and tried TENS with PT. Will check its status -Advised to stay physically active. Assessment & Plan (11/09/2022 2:29 PM EDT): Followed by [facility] Pain Management, seen on 11/17/21 [...] to restart. Pt declined -Discontinued tramadol in 2018. -Script for TENS sent to [facility] again in January 2020, but she needed to try TENS with PT. She now completed 2nd round of PT and tried TENS with PT. Will check its status -Advised to stay physically active. Assessment & Plan (08/25/2022 11:03 AM EST): Followed by [facility] Pain Management, seen on 11/17/21 [...] Plan (07/26/2022 1:07 PM EST): Followed by [facility] Pain Management, seen on 11/17/21 [...] to restart. Pt declined -Discontinued tramadol in 2018. -Script for TENS sent to [facility] [...] organization. Date Type Department Care Team Description 06/03/2025 Refill [facility] [address] [place] [address] Kiara Resendez MD Insomnia, unspecified type 05/26/2025 Refill [facility] [address] [place] [address] Kiara Resendez MD Insomnia, unspecified type; Recurrent major depressive episodes, moderate (CMS/HCC) ([facility]); Peripheral polyneuropathy 05/17/2025 Refill [facility] [address] [place] [address] Kiara Resendez MD Asthma with COPD (CMS/HCC) ([facility]) 05/16/2025 Refill [facility] [address] [place] [address] Kiara Resendez MD 05/09/2025 Telephone [facility] [address] [place] [address] Kiara Resendez MD Med Refill 05/09/2025 Refill [facility] [address] [place] [address] Kiara Resendez MD Panic disorder; Insomnia, unspecified type; Fibromyalgia; Chronic low back pain, unspecified back pain laterality, unspecified whether sciatica present 04/29/2025 Refill [facility] [address] [place] [address] Kiara Resendez MD Chronic low back pain, unspecified back pain laterality, unspecified whether sciatica present 04/20/2025 Travel 04/12/2025 Telephone [facility] [address] [place] [address] Nutrition referral 04/11/2025 Telephone [facility] [address] [place] [address] Kiara Resendez MD Med Refill 04/11/2025 Refill [facility] [address] [place] [address] Kiara Resendez MD Panic disorder; Insomnia, unspecified type 04/10/2025 Telephone [facility] [address] [place] [address] Sona Moreira RN 04/05/2025 Refill [facility] [address] [place] [address] Kiara Resendez MD Recurrent major depressive episodes, moderate (CMS/HCC); Insomnia, unspecified type 04/04/2025 Telephone [facility] [address] [place] [address] Kiara Resendez MD lung screening 03/20/2025 9:15 AM EDT Office Visit [facility] [address] [place] [phone] Kiara Resendez MD Type 2 diabetes mellitus with diabetic polyneuropathy, without long-term current use of insulin (CMS/HCC) (Primary Dx); Essential hypertension; Mixed hyperlipidemia; Asthma with COPD (CMS/HCC); Tobacco use; Pulmonary nodules; Chronic otitis externa of left ear, unspecified type; Recurrent major depressive episodes, moderate (CMS/HCC); Fibromyalgia; Mass of right wrist; Pain in both wrists; Pain in both hands; Arthritis of carpometacarpal (CMC) joint of right thumb; De Quervain's tenosynovitis, right; Numbness of left hand; Panic disorder; Intermittent explosive disorder; Smoking greater than 20 pack years 03/20/2025 Travel 03/15/2025 Refill [facility] [address] [place] [address] Kiara Resendez MD Panic disorder; Insomnia, unspecified type 03/15/2025 Refill [facility] [address] [place] [address] Kiara Resendez MD Insomnia, unspecified type; Panic disorder 03/11/2025 Refill [facility] [address] [place] [address] Kiara Resendez MD Gastroesophageal reflux disease, unspecified whether esophagitis present from Last 3 Months Immunizations Immunization Administration Dates Next Due Hep B, adult 02/23/2018,10/28/2015,05/29/2014 Influenza Injectable Quadriv alant Preservative Free IIV4 MDCK 04/12/2019,04/26/2018,05/17/2017 Influenza injectable quadriv alent preservative free 04/28/2023,04/06/2022,04/19/2021,04/06 Influenza, IIV3, injectable 05/07/2014,0 03/27/2011,06/04/2010,03/26 Influenza, Split (incl. kaleb fied surface antigen) 03/31/2013,04/22/2012 Influenza, seasonal, injecta ble, preservative free 04/20/2025,08/21/2024 Moderna Covid-19 Vaccine 12+ 11/25/2021, 06/18/2021,10/23/2020,09/25 Pfizer [...] Sign Reading Time Taken Comments Blood Pressure 132/66 04/20/2025 9:51 AM EDT Pulse 105 04/20/2025 9:51 AM EDT Temperature 36.8 C (98.3 F) 03/20/2025 9:19 AM EDT Respiratory Rate 20 03/20/2025 9:19 AM EDT Oxygen Saturation 97% 03/20/2025 9:19 AM EDT Inhaled Oxygen Concentration - - Weight 71.8 kg (158 lb 6.4 oz) 03/20/2025 9:19 A M EDT Height 151.1 cm (4' 11.5 ) 03/20/2025 9:19 AM ED T Body Mass Index 31.46 03/20/2025 9:19 AM EDT Plan of Treatment Upcoming Encounters Date Type Department Care Team (Late st Contact Info) Description 06/29/2025 9:00 AM EST Clinical Support [facility] [address] [place] [address] Sona Moreira, RN [address] [place] [address] 07/27/2025 9:00 AM EST Office Visit [facility] [address] [place] [address] Beni Almodovar DDS [address] [place] [address] 09/04/2025 9:30 AM EST Office Visit [facility] [address] [place] [address] Addie Scanlon 09/24/2025 1:30 PM EDT Office Visit [facility] [address] [place] [address] Glenny Pineda, OD [address] [place] [address] Health Maintenance Due Date Last Done Comments CT Colonography 1962 FIT DNA/Cologuard 1962 FIT 1962 FOBT 1962 Sigmoidoscopy 1962 Eye Exam 1972 Pap Smear 1983 HPV/Cotest 1992 RSV Patients and Patients Aged 60 years or older (1 - Risk 50-74 years 1-dose series) 2012 Dental Oral Exam 12/26/2024 06/26/2024 COVID-19 Vaccine ( season) 2025 08/21/2024, 08/10/2023, 11/25/2021, Additional history exists Depression Monitoring 05/31/2025 11/28/2024, 025 Diabetes: Hemoglobin A1C 06/19/2025 025, 12/12/2024, 08/21/2024, Additional history exists Dental X-Ray: Bitewings 06/27/2025 06/26/2024 Alcohol/Substance Use Screening 07/13/2025 07/13/2024 Diabetes: Foot Exam 07/13/2025 07/13/2024, 05/31/2023, 05/31/2023, Additional history exists Diabetes: Urine Protein Screening 07/13/2025 07/13/2024, 07/01/2023, 07/01/2023, Additional history exists Lipid Panel 07/13/2025 07/13/2024, 06/18, 08/28/2022, Additional history exists SDOH Screening 07/13/2025 07/13/2024 Dental Prophylaxis 09/01/2025 02/28/2025, 1 08/27/2023, 12/14/2023 Mammogram 12/07/2025 12/07/2024, 11/16, 11/19/2022, Additional history exists Disability Screening 03/20/2026 03/20/2025 Tobacco Screening 03/20/2026 03/20/2025 Dental X-Ray: Full Mouth 07/18/2027 07/17/2024, 05/19 DTaP/Tdap/Td Vaccines (3 - Td or Tdap) 11/26/2031 11/25/2021, 11/12/2011, 03/26/2009 Colonoscopy 05/08/2032 05/08/2022, 01/03/2019 Colorectal Cancer Screening 05/08/2032 Hepatitis B Vaccines Completed 02/23/2018, 10/28/2015, 05/29/2014 Pneumococcal Vaccine: 50+ Years Completed 04/06/2022, 05/29/2014, 03/26/2009 Zoster Vaccines Completed 06/08/2022, 04/06/2022 Influenza Vaccine Completed 04/20/2025, , 04/28/2023, Additional history exists Cervical Cancer Screening Discontinued [...] etc) Tobacco Use No Paul Macias PharmD Help patients manage their type 2 diabetes Care Plan Help patients manage their type 2 diabetes No Paul Macias PharmD Weekly blood pressure task Care Plan Weekly blood pressure task No Paul Macias PharmD Help patients manage their type 2 diabetes Care Plan Help patients manage their type 2 diabetes No Paul Macias PharmD Patient has chronic kidney disease Care Plan Patient has chronic kidney disease No Paul Mcaias PharmD Help patients manage their type 2 diabetes Care Plan Help patients manage their type 2 diabetes No Paul Macias PharmD Patient has diabetic neuropathy Care Plan Patient has diabetic neuropathy No Paul Macias PharmD Weekly blood pressure task Care Plan Weekly blood pressure task No Paul Macias PharmD Weekly blood pressure task Care Plan Weekly blood pressure task No Paul Macias PharmD Patient has chronic kidney disease Care Plan Patient has chronic kidney disease No Paul Macias PharmD Patient has chronic kidney disease Care Plan Patient has chronic kidney disease No Paul Macias PharmLani Patient has diabetic neuropathy Care Plan Patient has diabetic neuropathy No Paul Macias PharmD Patient has diabetic neuropathy Care Plan Patient has diabetic neuropathy No Paul Macias PharmD Procedures Procedure Name Priority Date/Time Associated Diagnosis Comments AMB REFERRAL TO ENT Urgent 03/23/2025 Chronic otitis externa of left ear, unspecified type POCT GLYCATED HEMOGLOBIN, TOTAL Routine 03/20/2025 9:24 AM EDT Type 2 diabetes mellitus with diabetic polyneuropathy, without long-term current use of insulin ([facility]) POCT GLUCOSE Routine 03/20/2025 9:23 AM EDT Type 2 diabetes mellitus with diabetic polyneuropathy, without long-term current use of insulin ([facility]) PROPHYLAXIS - ADULT Routine 02/28/2025 1 0:00 AM EDT BI MAMMOGRAM SCREENING TOMOSYNTHESIS BILATERAL Routine 12/07/2024 8:20 AM EDT PANORAMIC RADIOGRAPHIC IMAGE Routine 07/17/2024 9:15 AM EST ALBUMIN, RANDOM URINE W/CREATININE Routine 07/13/2024 9:49 AM EST Essential hypertension Type 2 diabetes mellitus with diabetic polyneuropathy, without long-term current use of insulin ([facility]) LIPID PANEL WITH REFLEX TO DIRECT LDL Routine 07/13/2024 9:49 AM EST Type 2 diabetes mellitus with diabetic polyneuropathy, without long-term current use of insulin ([facility]) Mixed hyperlipidemia BITEWINGS - 2 RADIOGRAPHIC IMAGES Routine 06/26/2024 10:00 AM EST Periodontal disease Edentulous maxilla Dental plaque Dental caries PERIODIC ORAL EVALUATION - ESTABLISHED PATIENT Routine 06/26/2024 10:00 AM EST HM COLONOSCOPY Routine 01/03/2019 from Last 3 Months or Most Recently Relevant to Health Maintenance Results * Referral to ENT (03/23/2025) us Kiara Resendez MD OUTPATIENT REFERRAL ORDERABLES E dited Result - Final * (ABNORMAL) POCT HGB A1C (03/20/2025 9:24 AM EDT) Hemoglobin A1C 7.8(A) 4.0 - 5.7 % QC Media Lot # [id number] Lot# Expiration Date ,335,085 Blood 03/20/2025 9:24 AM EDT us Kiara Resendez MD POINT OF CARE TEST ENTER/EDIT OR DERABLES Final Result * POCT Glucose (03/20/2025 9:23 AM EDT) Glucose Blood, POC 165 60 - 200 mg/dL QC Media Lot # [id number] Lot# Expiration Date [id number] Blood Capillary blood specimen / Unknown 03/20/2025 9:23 AM EDT Kiara Resendez MD POINT OF CARE TEST ENTER/EDIT OR DERABLES Final Result * BI Mammogram Screening Tomosynthesis Bilateral (12/07/2024 8:20 AM EDT) Anatomical Region Laterality Modality Breast Bilateral Mammography 12/07/2024 8:20 AM EDT Narrative 12/15/2024 5:08 PM EDT [address] [place] [address] Mammography Report Signed Patient: Lisa De La Cruz MR #: [id number] : 1960 Acct:[id number] Age/Sex: 64 / F ADM Date: 12/07/24 Loc: [facility] Attending Dr: Kiara Resendez MD Ordering Physician: Kiara Resendez MD Results: 1Negative Date of Service: 12/07/24 Follow Up: 1 Year From [facility] Mammogram Procedure(s): MM tomosynthesis screening BI Accession Number(s): [id number] cc: Kiara Resendez MD EXAMINATION: MM SCREENING DIGITAL BREAST TOMOSYNTHESIS, BILATERAL CLINICAL INFORMATION: Screening. Asymptomatic. COMPARISON: Mammography: Comparison is made with available priors TECHNIQUE: Digital breast mammography with tomosynthesis is performed in both the craniocaudal and mediolateral oblique views along with computer-aided detection (CAD). FINDINGS: There are scattered areas of fibroglandular density (ACR BI-RADS breast composition Category b). There are no significant masses, abnormal calcifications, or other abnormalities. MM/MM tomosynthesis screening BI IMPRESSION: No mammographic evidence of malignancy. ASSESSMENT: BI-RADS BI-RADS 1 - Negative RECOMMENDATION: Routine annual mammography screening. 1 year F/U This examination should not preclude the clinical evaluation of a suspicious palpable abnormality. This patient's information was entered into a reminder system with a target due date for their next mammogram. Electronically signed by: Kinga Anand DO 12/15/2024 05:05 PM EDT RP Dictated By: Kinga Anand DO Signed By: <Electronically signed by Kinga Anand DO in OV> 12/15/24 1705 DD/ 0820 TD/TT: 12/07/24 0839 User Experience Architect: Procedure Note Donotuseinterpreter, Image - 12/15/[address] [facility] [address] [place] [address] Mammography Report Signed Patient: Matthias De La Cruz #: [id number] : 1960cct:[id number] Age/Sex: 64 / FADM Date: 12/07/24 Loc: [facility] Attending Dr: Kiara Resendez MD Ordering Physician: Kiara Resendez MDResults: 1Negative Date of Service: 12/07/24Follow Up: 1 Year From Orig ina Mammogram Procedure(s): MM tomosynthesis screening BI Accession Number(s): [id number] cc: Kiara Resendez MD EXAMINATION: MM SCREENING DIGITAL BREAST TOMOSYNTHESIS, BILATERAL CLINICAL INFORMATION: Screening. Asymptomatic. COMPARISON: Mammography: Comparison is made with available priors TECHNIQUE: Digital breast mammography with tomosynthesis is performed in both the craniocaudal and mediolateral oblique views along with computer-aided detection (CAD). FINDINGS: There are scattered areas of fibroglandular density (ACR BI-RADS breast composition Category b). There are no significant masses, abnormal calcifications, or other abnormalities. MM/MM tomosynthesis screening BI IMPRESSION: No mammographic evidence of malignancy. ASSESSMENT: BI-RADS BI-RADS 1 - Negative RECOMMENDATION: Routine annual mammography screening. 1 year F/U This examination should not preclude the clinical evaluation of a suspicious palpable abnormality. This patient's information was entered into a reminder system with a target due date for their next mammogram. Electronically signed by: Kinga Anand DO 12/15/2024 05:05 PM EDT Dictated By: Kinga Anand DO Signed By: <Electronically signed by Kinga Anand DO in OV> 12/15/24 1705 DD/ 0820 TD/TT: 12/07/24 0839 User Experience Architect: Kiara Resendez MD IMG BI PROCEDURES Edited Result - Final * (ABNORMAL) Lipid Panel with Reflex to Direct LDL (07/13/2024 9:49 AM EST) Triglycerides 286(H) <150 mg/dL [facility] Comment:Desirable Triglyceri de: less than 150 mg/dLBorderline High Triglyceride 150-199 mg/dLHigh Triglyceride: 200-499 mg/dLVery High Triglyceride: greater than or equal to 5OO mg/dL Cholesterol 141 <200 mg/dL [facility] Comment:Desirable Cholestero l: less than 200 mg/dLBorderline High Cholesterol: 200-239 mg/dLHigh Cholesterol: greater than 239 mg/dL LDL Cholesterol Calculated 55 <100 mg/dL [facility] Comment:Desirable LDL: less than 100 mg/dLNear Optimal/Above Optimal LDL: 110- 129 mg/dLBorderline High LDL: 130-159 mg/dLHigh LDL: 160-189 mg/dLVery High LDL: greater than or equal to 190 mg/dL HDL Cholesterol 29(L) >40 mg/dL [facility] Comment:Desirable HDL: great er than 40 mg/dL Note: This HDL assay may give artificially low results in patients with liver disease. Blood 07/13/2024 9:49 AM EST 07/13/2024 11:07 AM EST Kiara Resendez MD LAB BLOOD ORDERABLES Final Resul t [facility] [address] [place] [phone] * Albumin, Random Urine W/Creatinine (07/13/2024 9:49 AM EST) Creatinine, Urine 39.31 mg/dL [facility] Microalbumin Urine <5.0 mg/L [facility] Microalbum Creatinine Ratio Ur TNP <30 ug/mg cr [facility] Comment:Unable to calculate albumin/creatinine ratio due to lowmicroalbumin or creatinine result. Urine 07/13/2024 9:49 AM EST 07/13/2024 11:35 AM EST Kiara Resendez MD LAB URINE ORDERABLES Final Resul t [facility] [address] [place] [address] [phone] * Hm Colonoscopy (01/03/2019) Colonoscopy performed Historical Provider HEALTH MAINTENANCE Final Result from Last 3 Months or Most Recently Relevant to Health Maintenance Additional Health Concerns Active Problems Noted Date Diagnosed Date Help patients manage their type 2 diabetes 06/05 Weekly blood pressure task 06/05/2025 Help patients manage their type 2 diabetes 06/05 Patient has chronic kidney disease 06/05/2025 Help patients manage their type 2 diabetes 06/05 Patient has diabetic neuropathy 06/05/2025 Weekly blood pressure task 06/05/2025 Weekly blood pressure task 06/05/2025 Patient has chronic kidney disease 06/05/2025 Patient has chronic kidney disease 06/05/2025 Patient has diabetic neuropathy 06/05/2025 Patient has diabetic neuropathy 06/05/2025 [facility] STAND ADULT Care Teams Computer Laboratory Technician Relationship Specialty Start Date End Date Kiara Resendez MD [address], [place] PCP - General Family Medicine 07/19/18 Paul Macias, PharmD [address], [place] Pharmacist Internal Medicine 11/20/22 Karlee Sanders Wire Wrapping Machine OperatorStudent Admissions Clerk 02/23/24
--- OUTSIDE RECORDS SUMMARY | 2025-06-08 09:26 | XMS_ITS | Encounter Summary ---
Author Organization [employer] Address [address] [facility] [address] [place] [address] Care Team Providers Care Insurance Claims Clerk Name Role Phone Kiara Resendez MD Primary Care Provider [phone] Paul Macias PharmD Unavailable [phone] Reason for Visit * Reason Comments Med Refill Encounter Details Date Type Department Care Team ([facility] st Contact Info) Description 01/04/2023 Refill [facility] MEDICINE [address] [place], [place] [phone] Carlene Myrick MD [address] [place], [place] [phone] Chronic low back pain, unspecified back pain [...] Description 06/29/2025 9:00 AM EST Clinical Support [facility] [address] [place] [address] Sona Moreira, JEFF [address] [place] [address] 07/27/2025 9:00 AM EST Office Visit [facility]ULT D[facility] [address] [place] [address] Beni Almodovar DDS [address] [place] [address] 09/04/2025 9:30 AM EST Office Visit [facility] [address] [place] [address] Addie Scanlon 09/24/2025 1:30 PM EDT Office Visit [facility] OPTOM[facility] [address] [place] [address] TarGlenny balderas, OD [address] [place] [address] documented as of this encounter Goals Goal [...] documented as of this encounter Care Teams Insurance Claims Clerk Relationship Specialty Start Date End Date Kiara Resendez MD [address] [place] [address] PCP - General Family Medicine 07/19/18 Paul Macias, AlvinD [address] [place] [address] Pharmacist Internal Medicine 11/20/22 Karlee Sanders Reinforcing Steel WorkerMechanical Maintenance Instructor 02/23/24 documented as of this encounter
--- OUTSIDE RECORDS SUMMARY | 2025-06-08 09:26 | XMS_ITS | Encounter Summary ---
Author Organization [employer] Address [address] [facility] [address] [place] [address] Care Team Providers Care Soap Chipper Name Role Phone Kiara Resendez MD Primary Care Provider [phone] Paul Macias PharmD Unavailable [phone] Reason for Visit * Reason Comments Med Refill Encounter Details Date Type Department Care Team ([facility] st Contact Info) Description 12/30/2022 Refill [facility] MED[facility]INE [address] [place], [place] [phone] Kiara Resendez MD [address] [place], [place] [phone] Social History Tobacco Use Types Packs/Day Years [...] Description 06/29/2025 9:00 AM EST Clinical Support [facility] MEDICINE [address] [place] [address] Sona Moreira, RN [address] [place] [address] 07/27/2025 9:00 AM EST Office Visit [facility] ADULT DENTAL [address] [place] [address] Beni Almodovar DDS [address] [place] [address] 09/04/2025 9:30 AM EST Office Visit [facility] ADULT DENTAL [address] [place] [address] Addie Scanlon 09/24/2025 1:30 PM EDT Office Visit [facility] OPTOMETRY [address] [place] [address] TarkaGlenny, OD [address] [place] [address] documented as of this encounter Goals Goal Patient Goal Type Associated Problems Recent Progress Patient-Stated? Author Blood Pressure < 140/90 Blood Pressure 132/66( 025 9:51 AM EDT) No Paul Macias, Sabrina Eat a balanced, healthy diet Diet No Jess Garcia, JEFF Quit using tobacco (cigarettes, smokeless, etc) Tobacco Use No Paul Macias, Sabrina documented as of this encounter Visit Diagnoses Not on filedocumented in this encounter Additional Health Concerns Assessment Noted Time PHQ-9 Depression Total Score: 8 08/25/19 23 10:52 AM EST documented as of this encounter Care Teams Soap Chipper Relationship Specialty Start Date End Date Kiara Resendez MD [address] [place] [id number] PCP - General Family Medicine 07/19/18 Paul Macias PharmD [address] [place], [place] [address] [address] Pharmacist Internal Medicine 11/20/22 Karlee Sanders Hand Expansion Envelope MakerInterior Design Professor 02/23/24 documented as of this encounter
== END 2025-06-08 09:35 | disposition home or self-care (01) ==
LOC: HO.HOS 09:06
PROVIDERS: PCP Family Medicine
DX: G56.02 Carpal tunnel syndrome, left upper limb (principal)
CPT/HCPCS: 99214

== ENCOUNTER 2025-06-08 09:42 | Outpatient (AMB) | payer MEDICAID, SELFPAY ==
--- NOTE | 2025-06-08 08:02 | A.OFFVIS_ITS ---
Intake Visit Reasons: LDCT Allergies No Known Allergies (No Known Allergies*) Allergy (Verified 06/08/25 09:24) HPI HPI LDCT: Details: Initial visit for this 65yo smoker with a 25 PYH. Patient started smoking at age 15 for 50 years at 1/2ppd. . Denies marijuana use. Denies second hand smoke exposure. Denies exposure to chemicals or substances like asbestos. . Notes family history of lung cancer. Sister - in her 60s Denies personal history of cancers. Denies chest CT in last year. . Denies recent travel outside the [place]. Denies recent respiratory illness or recent hospitalization for respiratory issues. . Denies fever, chills, new/worsening cough, hemoptysis, hoarseness or dysphagia. Denies significant chest pain, significant dyspnea or unintentional weight loss. Patient Lung Cancer Screening Questionnaire reviewed with patient by provider. . Shared Decision Making Completed. Patient meets criteria. Discussed in detail with patient, the risk vs benefit of LDCT screening. Patient consents to proceed with scan. Discussed smoking cessation. [facility] Medical History (Updated 06/08/25 @ 09:50 by Bouchra Howard PA-C) Nicotine dependence, cigarettes, uncomplicated History of adenomatous polyp of colon Low back pain Asthma Hyperlipemia Osteoporosis Fibromyalgia Diabetes HTN (hypertension) Surgical History (Updated 04/09/25 @ 09:47 by Bouchra Howard PA-C) History of colonoscopy History of carpal tunnel surgery of right wrist History of excision of lesion History of hysterectomy with bilateral oophorectomy Family History Sister Lung cancer Social History (Updated 06/08/25 @ 09:50 by Bouchra Howard PA-C) Household Members: Family Housing: Apartment Do you presently have visiting nurse or other home services: Yes (DINING ROOM COORDINATOR) Alcohol intake: never Patient Tobacco Use Status: Current everyday Tobacco user Tobacco use type: Cigarette Cigarettes Per Day: 6 Years Smoked: (onset 15yo, 1/2ppd x 50yrs, 25pyh) service: No Assessment & Plan Assessment & Plan (1) Nicotine dependence, cigarettes, uncomplicated: Comment: (onset 15yo, 1/2ppd x 50yrs, 25pyh) Code(s): F17.210 - Nicotine dependence, cigarettes, uncomplicated Category: Medical Plan: - SDM visit completed today in office. - Patient meets criteria for LDCT for lung cancer screening purposes and is asymptomatic. - Smoking cessation counseling offered. Patients can always call [phone]. - Will arrange for a LDCT scan of the chest for screening purposes at [facility]. - Risks, benefits, and alternatives were discussed in detail and the patient agrees to proceed. - Risks discussed include but are not limited to: radiation exposure, anxiety during testing and while awaiting results, false negatives, false positives and possibility of additional intervention such as further imaging or surgical procedures for benign disease. - Benefits are obviously detection of lung cancer at an early stage which can lead to improved outcomes. - Discussed the importance of screening program compliance with adherence to yearly LDCT scan as scheduled - or sooner interval scans for personalized screening regimen. - Discussed follow up plan. Our office will send a letter discussing results and if needed set up phone call and office visit based on CT findings. - Patient educated on results categorization and the management decisions for suspicious findings potentially found on the screening LDCT scan. Any patient with a Lung RADS score of 3 or 4 will be reviewed by a multidisciplinary team at [facility] to form a plan of action in regards to scan findings. - If further work up is warranted for a suspicious lung finding this will be followed by the Lung Cancer Screening program in conjunction with the Thoracic Surgery Department at [facility]. - A copy of the office note and LDCT will be sent to the patient's PCP - as well as documentation on any associated further plans of care. - Incidental findings on LDCT are the PCP's responsibility. These findings are indicated with an S finding on the LDCT Assessment. A note discussing the findings will be sent to the PCP who is then responsible for further management. - All questions answered.? Coding Level of Care Code Lung Cancer Screening G0296 Diagnoses Nicotine dependence, cigarettes, uncomplicated F17.210
== END 2025-06-08 10:35 | disposition home or self-care (01) ==
LOC: HO.HPS 09:42
PROVIDERS: PCP Family Medicine; Referring Provider Family Medicine; Visit Provider Physician Assistant Medical
DX: F17.210 Nicotine dependence, cigarettes, uncomplicated (principal)
CPT/HCPCS: G0296

== ENCOUNTER 2025-06-08 10:03 | Outpatient (REF) | payer MEDICAID, SELFPAY ==
--- NOTE | ~2025-06-08 | CT_ITS ---
EXAMINATION: CT LOW-DOSE SCREENING CHEST WITHOUT CONTRAST CLINICAL INFORMATION: 65-year-old female, current smoker, 30 pack years, lung cancer screening. COMPARISON: CT chest 08/10/2022, 07/01/2021, 12/28/2020, and dating back to 10/12/2019. TECHNIQUE: Multidetector volumetric CT imaging of the chest is performed on a Siemens SOMATOM Definition scanner without contrast using low dose technique. Additional 2D coronal and sagittal reformatted images and axial 3D maximum intensity projection (MIP) images are generated on the CT workstation. This CT examination was performed using dose optimization techniques as appropriate, variously including the following: *Automated exposure control *Adjustment of mA and/or kV according to patient size (this includes techniques or standardized protocols for targeted exams where dose is matched to indication/reason for exam; i.e. extremities or head) *Use of iterative reconstruction technique FINDINGS: PULMONARY NODULES: Average diameter 6 mm subpleural nodule lateral right upper lobe (series 3, image 128), unchanged from 2022 and benign. No new or enlarging pulmonary nodule. LUNGS: There is mild centrilobular emphysema. The lungs are otherwise clear. There is no abnormal opacities. There is no interstitial abnormality. Small airways appear normal without bronchiectasis or wall thickening. Central airways are patent. No pleural or pericardial effusion is present. No pneumothorax. MEDIASTINUM: Partially imaged thyroid is normal. There are a few reactive appearing mediastinal lymph nodes measuring up to 7 mm short axis. These are stable. No pathologic mediastinal nodes. Aorta is normal in caliber with mild atheromatous calcification. There is no aneurysm. Main pulmonary trunk is normal in size. Heart size is normal. No pericardial effusion. There is a suspected small type I hiatus hernia at the GE junction. Esophagus is otherwise normal. CORONARY ARTERY CALCIFICATION: None visualized on this study. CHEST WALL/AXILLA: No mass or abnormal lymph nodes appreciated. UPPER ABDOMEN: Hepatomegaly and diffuse fatty infiltration noted in the imaged upper abdomen. No suspicious hepatic lesion allowing for noncontrast, low dose technique. Remainder of the imaged upper abdominal contents appear normal. OSSEOUS STRUCTURES: No suspicious lytic or blastic bone lesion present. There is a bone island in T5. There are mild to moderate degenerative changes throughout the spine. CT/CT lung screening IMPRESSION: 1. There is a stable average diameter 6 mm subpleural nodule in the lateral lobe. This is benign. There is no new or enlarging pulmonary nodule. 2. Mild changes of COPD. No active lung disease. 3. Hepatomegaly and diffuse fatty infiltration. 4. Additional ancillary findings as discussed in the body of the report. ASSESSMENT: 1. Lung-RADS Category 2: Benign appearance or behavior of nodules. 2. Lung-RADS Category S: None. RECOMMENDATION: Continued routine annual low-dose CT lung screening in 1 year is recommended. An order for CT CHEST LOW DOSE CANCER SCREENING ([id number]) can be placed. Electronically signed by: Loy Townsend MD 06/08/2025 10:45 [facility]
== END 2025-06-08 10:04 | disposition home or self-care (01) ==
LOC: HO.CT 10:03
PROVIDERS: PCP Family Medicine; Visit Provider Physician Assistant Medical
DX: F17.210 Nicotine dependence, cigarettes, uncomplicated (principal); G56.02 Carpal tunnel syndrome, left upper limb; E11.9 Type 2 diabetes mellitus without complications; Z71.6 Tobacco abuse counseling; Z12.2 Encounter for screening for malignant neoplasm of respiratory organs; Z80.1 Family history of malignant neoplasm of trachea, bronchus and lung
CPT/HCPCS: 71271; G0296

== ENCOUNTER → 2025-06-08 10:06 | Outpatient (BNV) | payer MEDICAID, SELFPAY | PROVIDERS: PCP Family Medicine; Visit Provider Radiology Diagnostic Radiology | DX: Z12.2 Encounter for screening for malignant neoplasm of respiratory organs (principal); Z87.891 Personal history of nicotine dependence; J44.9 Chronic obstructive pulmonary disease, unspecified; R91.8 Other nonspecific abnormal finding of lung field | CPT/HCPCS: 71271 ==